=== PATIENT | male | born 1945 ===

== ENCOUNTER 2025-03-12 11:47 | Outpatient (AMB) | payer MEDICARE, SELFPAY ==
--- OUTSIDE RECORDS SUMMARY | 2025-03-12 13:06 | XMS_ITS | Clinical Summary ---
Author Organization [facility] Address [address] [place] [address] Phone Care Team Providers Care Building Maintenance Technician Name Role Phone Stas Pelaez MD Primary Care Provid er Donte Rush MD Unavailable [phone] Victor Hugo Hurley MD Unavailable [phone] Allergies Active Allergy Reactions Criticality Noted Date Comments Lisinopril Cough Medium 05/21/2014 Medications amLODIPine (NORVASC) 10 MG tablet Dose: 10 MG; Form: Take 1 TABLET; Route: PO; Frequency: as directed; Directions : Not available; Details: Dispense: Tablet(s); Date: 05/20/2015 05/20/2015 Active aspirin 81 mg chewable tablet Dose: 81 MG; Form: Take 1 TAB CHEW; Route: PO; Frequency: QD; Directions : Not available; Details: Dispense: Tablet(s); Date: 05/30/2012 05/30/2012 Active VALSARTAN (DIOVAN ORAL) Dose: 1 TAB; Form: Not available; Route: PO; Frequency: QD; Directions : Not available; Details: Not available; Date: 04/15/2007 04/15/2007 Active fenofibrate 40 mg Tab Dose: 40 MG; Form: Take 1 TABLET; Route: PO; Frequency: QD; Directions : Not available; Details: Dispense: Tablet(s); Date: 05/30/2012 05/30/2012 Active folic acid (FOLVITE) 1 MG tablet Dose: 1 MG; Form: Take 1 TABLET; Route: PO; Frequency: as directed; Directions : Not available; Details: Dispense: Tablet(s); Date: 05/20/2015 05/20/2015 Active gabapentin (NEURONTIN) 400 MG capsule Dose: 400 MG; Form: Take 1 CAPSULE; Route: PO; Frequency: as directed; Directions : Not available; Details: Dispense: Capsule(s) ; Date: 05/20/2015 05/20/2015 Active glipiZIDE (GLUCOTROL) 10 MG tablet Dose: 10 MG; Form: Take 4 TABLET; Route: PO; Frequency: as directed; Directions : Not available; Details: Dispense: Tablet(s); Date: 05/20/2015 05/20/2015 Active lovastatin (MEVACOR) 20 MG tablet Dose: 20 MG; Form: Take 1 TABLET; Route: PO; Frequency: QPM; Directions : Not available; Details: Dispense: Tablet(s); Date: 05/30/2012 05/30/2012 Active sterile water Syr 5 mL with methotrexate 2.5 MG Tab Dose: Not available; Form: Not available; Route: PO; Frequency: Not available; Directions : As directed; Details: Not available; Date: 05/20/2015 05/20/2015 Active PV W-O TIANNA/FERROUS FUMARATE/FA (M-VIT ORAL) Dose: 1 TAB; Form: Not available; Route: PO; Frequency: QD; Directions : Not available; Details: Not available; Date: 05/30/2012 05/30/2012 Active hydroxychloroquin e (PLAQUENIL) 200 mg tablet Take by mouth daily. Active ATORVASTATIN CALCIUM (ATORVASTATIN ORAL) Take by mouth. Active MULTIVITAMIN ORAL Take by mouth. Active METOPROLOL SUCCINATE ORAL Take by mouth. Active Active Problems Problem Noted Date Diagnosed Date Hyperlipidemia 06/01/2016 Arthritis 05/30/2012 Overview (09/14/2014): Arthritis Cancer 05/30/2012 Overview (09/14/2014): Cancer Hypertensive disorder 05/30/2012 Overview (09/14/2014): Hypertension Sleep apnea 05/30/2012 Overview (09/14/2014): Sleep apnea; CPAP Diabetes mellitus 05/30/2012 Overview (09/14/2014): Diabetes mellitus Social History Tobacco Use Types Packs/Day Years Used Date Smoking Tobacco: Former Alcohol Use Standard Drinks/Week Comments Yes 0 (1 standard drink = 0.6 oz pur e alcohol) rare Education Answer Date Recorded Are you interested in more education? Not on deon e 12/07/2022 Are you concerned about learning? Not on file 12/07/2022 No 12/07/2022 No 12/07/2022 Digital Access Answer Date Recorded No 12/20/2022 No 12/20/2022 No 12/20/2022 Reliable internet access at home? Not on file 12/20/2022 Device with a working camera? Not on file Sex and Gender Information Value Date Recorded Sex Assigned at Not on file Legal Sex Male 6:35 PM EST Gender Identity Male Sexual Orientation Straight Plan of Treatment Health Maintenance Due Date Last Done Comments Adult Td,Tdap Booster 1946 BLOOD PRESSURE 1946 CREATININE LEVEL 1946 HEMOGLOBIN A1C 1946 POTASSIUM LEVEL 1946 DEPRESSION SCREENING 1958 SMOKING Hx and SMOKELESS TOBACCO SCREENING 1959 HEPATITIS C SCREENING 01/31/1964 LIPID PANEL 01/31/1964 PNEUMOCOCCAL VACCINES (50+ years) (1 of 2 - PCV) 1965 DIABETIC EYE EXAM 09/05/2019 09/05/2018, , 09/05/2018, Additional history exists COVID-19 VACCINE (2 - Pfizer risk series) 11/02/2020 10/12/2020 RSV VACCINE (1 - 1-dose 75+ series) 2021 ZOSTER VACCINES Completed 01/24/2019, 10/24, 11/02/2018 HEPATITIS A VACCINES Aged Out No long er eligible based on patient's age to complete this topic HIB VACCINES Aged Out No longer eligi ble based on patient's age to complete this topic MENINGOCOCCAL VACCINES (ACWY) Aged Out No longer eligible based on patient's age to complete this topic MENINGOCOCCAL VACCINES (B) Aged Out N o longer eligible based on patient's age to complete this topic Medical Devices Not on file [place] [address] [address] MEDICARE PPO BLUE [place]PL[place] [address] [address] MEDICARE PPO BLUE [place]PL[place] [address] MEDICARE PPO BLUE REPLACEMENT Care Teams Building Maintenance Technician Relationship Specialty Start Date End Date Stas Pelaez MD [address] [phone] PCP - General 09/25/15 Donte Rush MD [address] [address] Ophthalmology 05/28/17 Victor Hugo Hurley MD [facility] [address] [address] Ophthalmology 08/28/19 Additional Source Comments The information contained in this document represents components of the legal health record. It is not the complete legal health record.[facility]
--- OUTSIDE RECORDS SUMMARY | 2025-03-12 13:06 | XMS_ITS | Encounter Summary ---
Author Organization [facility], Address [address] [address] Phone Care Team Providers Care Telecommunications Project Manager Name Role Phone Stas Pelaez MD Primary Care Provider Encounter Details Date Type Department Care Team (Late st Contact Info) Description 12/04/2021 Documentation Only [facility] [address] [place] [place] [phone] Armand Elliott MD [address] [place] [address] [place] [phone] Social History Tobacco Use Types Packs/Day Years Used Date Smoking Tobacco: Former Cigarettes Q uit: 05/07/1975 Alcohol Use Standard Drinks/Week Comments Yes 0 (1 standard drink = 0.6 oz pure alcohol) Alcoholic Drinks/day: Occasional social drink Sex and Gender Information Value Date Recorded Sex Assigned at Male 03/29/2020 8:06 AM EDT Legal Sex Male 4:34 PM EST Gender Identity Male 03/29/2020 8:06 AM EDT Sexual Orientation Straight 03/29/2020 8: 06 AM EDT documented as of this encounter Plan of Treatment Upcoming Encounters Date Type Department Care Team (Late st Contact Info) Description 12/03/2025 2:00 PM EDT Office Visit [facility] [address] [place] [phone] Armand Elliott MD [address] [place] [address] [place] [address] documented as of this encounter Visit Diagnoses Not on filedocumented in this encounter Care Teams Telecommunications Project Manager Relationship Specialty Start Date End Date Stas Pelaez MD [address] PCP - General 05/30/19 documented as of this encounter
--- OUTSIDE RECORDS SUMMARY | 2025-03-12 13:06 | XMS_ITS | Encounter Summary ---
Author Organization [facility] Address [address] [place] [address] Care Team Providers Care Automatic Lehr Operator Name Role Phone Stas Pelaez MD Primary Care Provider [phone] Encounter Details Date Type Department Care Team (Late st Contact Info) Description 06/02/2024 Lab Requisition [facility] - Main Lab [address] [facility] [place] [address] Suzanne Pelayo MD [address] [facility] 1 [place] [address] Type 2 diabetes mellitus without complications (CMS/HCC V24, CMS/HCC V28); Essential (primary) hypertension Social History Tobacco Use Types Packs/Day Years Used Date Smoking Tobacco: Former Cigarettes Q uit: 07/26/1975 Smokeless Tobacco: Never Alcohol Use Standard Drinks/Week Comments No 0 (1 standard drink = 0.6 oz pur e alcohol) Sex and Gender Information Value Date Recorded Sex Assigned at Not on file Legal Sex Male 1:33 PM EST Gender Identity Not on file Sexual Orientation Not on file documented as of this encounter Plan of Treatment Not on file documented as of this encounter Visit Diagnoses Diagnosis Type 2 diabetes mellitus without complications (CMS/HCC V24, CMS/HCC V28) Essential (primary) hypertension Unspecified essential hypertension documented in this encounter Care Teams Automatic Lehr Operator Relationship Specialty Start Date End Date Stas Pelaez MD [address] [facility] [address] [place], [place] PCP - General Internal Medicine 07/14/17 documented as of this encounter
== END 2025-03-12 11:51 | disposition home or self-care (01) ==
LOC: HO.HMGAL 11:47
PROVIDERS: PCP Internal Medicine; Visit Provider Registered Nurse Emergency
DX: J30.89 Other allergic rhinitis (principal)
CPT/HCPCS: 95117; 95165

== ENCOUNTER 2025-04-09 11:55 | Outpatient (AMB) | payer MEDICARE, SELFPAY ==
--- OUTSIDE RECORDS SUMMARY | 2025-04-09 16:34 | XMS_ITS | Encounter Summary ---
Author Organization [facility], Address [address] [address] Phone Care Team Providers Care Gasket Winder Name Role Phone Stas Pelaez MD Primary Care Provider Encounter Details Date Type Department Care Team (Late st Contact Info) Description 12/04/2021 Documentation Only [facility] [address] [place] [phone] Armand Elliott MD [address] [place] [address] [place] [phone] Social History Tobacco Use Types Packs/Day Years [...] Visit [facility] [address] [place] [phone] Armand Elliott MD [address] [place] [address] [place] [address] documented as of this encounter Visit Diagnoses Not on filedocumented in this encounter Care Teams Gasket Winder Relationship Specialty Start Date End Date Stas Pelaez MD [address] PCP - General 05/30/19 documented as of this encounter
--- OUTSIDE RECORDS SUMMARY | 2025-04-09 16:34 | XMS_ITS | Clinical Summary ---
Author Organization [facility] Address [address] [facility] [address] [place] [address] Phone Care Team Providers Care Programmer Developer Name Role Phone Stas Pelaez MD Primary Care Provid er Donte Rush MD Unavailable [phone] Victor Hugo Hurley MD Unavailable [phone] Allergies Active Allergy Reactions Criticality Noted Date [...] VACCINE (1 - 1-dose 75+ series) 2021 INFLUENZA VACCINE (#1) 2025 , 04/21/2019, 04/20/2018, Additional history exists ZOSTER VACCINES Completed 01/24/2019, 10/24, 11/02/2018 HEPATITIS [...] topic Medical Devices Not on file [place] [address] [place] [address] MEDICARE PPO BLUE [place]PLAC[place] [address] [address] MEDICARE PPO BLUE REPLACEMENT [facility] MEDICARE PPO BLUE [place] [address] [place] [address] MEDICARE PPO BLUE REPLACEMENT [place] MEDICARE PPO BLUE REPLACEMENT Care Teams Programmer Developer Relationship Specialty Start Date End Date Stas Pelaez MD [address] [facility] [address] [place] [address] PCP - General 09/25/15 Donte Rush MD [address] [facility] [address] [place] [address] Ophthalmology 05/28/17 Victor Hugo Hurley MD [address] [facility] [address] [place] [address] Ophthalmology 08/28/19 Additional Source Comments The information contained in this document represents components of the legal health record. It is not the complete legal health record.[facility]
--- OUTSIDE RECORDS SUMMARY | 2025-04-09 16:34 | XMS_ITS | Encounter Summary ---
Author Organization [facility] Address [address] [place] [address] Care Team Providers Care Exhibition Organiser Name Role Phone Stas Pelaez MD Primary Care Provider [phone] Encounter Details Date Type Department Care Team (Late st Contact Info) Description 06/02/[address] [facility] - Main Lab [address] [facility] [place] [address] Suzanne Pelayo MD [address] [facility] 1 [place] [address] Type 2 diabetes mellitus without complications (CMS/HCC [...] hypertension documented in this encounter Care Teams Exhibition Organiser Relationship Specialty Start Date End Date Stas Pelaez MD 36[address] [facility] [address] [place], [place] PCP - General Internal Medicine 07/14/17 documented as of this encounter
--- OUTSIDE RECORDS SUMMARY | 2025-04-09 16:34 | XMS_ITS | Encounter Summary ---
Author Organization [facility] Address [address] [place] [address] Care Team Providers Care Rheumatology Specialist Name Role Phone Stas Pelaez MD Primary Care Provider [phone] Encounter Details Date Type Department Care Team (Late st Contact Info) Description 05/27/2024 Lab Requisition [facility] - Main Lab [address] [facility] [place] [address] Suzanne Pelayo MD [address] [facility] 1 [place] [address] Type 2 diabetes mellitus without complications (CMS/HCC [...] hypertension documented in this encounter Care Teams Rheumatology Specialist Relationship Specialty Start Date End Date Stas Pelaez MD [address] [facility] [address] [place], [place] PCP - General Internal Medicine 07/14/17 documented as of this encounter
--- OUTSIDE RECORDS SUMMARY | 2025-04-09 16:34 | XMS_ITS | Clinical Summary ---
Author Organization [address] Address [address] [place] [phone] Phone Care Team Providers Care Instrument Maker And Repairer Name Role Phone Stas Pelaez MD Primary Care Provider Allergies Active Allergy Reactions Criticality Noted Date Comments Lisinopril 05/12/2017 Medications multivitamin with minerals tablet Take by mouth. Active aspirin 81 mg EC tablet Take 81 mg by mouth daily. Active folic acid (FOLVITE) 1 mg tablet Take 1 mg by mouth daily. Active gabapentin (NEURONTIN) 400 mg capsule Take 400 mg by mouth 3 times daily. Active hydroxychloroqui ne (PLAQUENIL) 200 mg tablet Take 200 mg by mouth 2 times daily. Active methotrexate 2.5 mg tablet Take 7 Tabs by mouth once a week. Active sertraline (ZOLOFT) 50 mg tablet Take 1 tablet (50 mg total) by mouth 1 (one) time each day. Active valsartan (DIOVAN) 320 mg tablet Take 1 tablet (320 mg total) by mouth 1 (one) time each day. Active predniSONE (DELTASONE) 2.5 mg tablet Take 1 tablet (2.5 mg total) by mouth 1 (one) time each day. Active carvediloL (COREG) 12.5 mg tablet TAKE 1 TABLET BY MOUTH TWICE A DAY WITH FOOD 180 tablet 2 10/18/2024 Active atorvastatin (LIPITOR) 80 mg tablet TAKE 1 TABLET BY MOUTH EVERY DAY 90 tablet 3 10/18/2024 Active Active Problems Problem Noted Date Diagnosed Date Nonischemic cardiomyopathy (CMS/HCC V24, CMS/HCC V28) 09/26/2024 Assessment & Plan (01/01/2025 4:06 PM EDT): Echocardiogram completed 01/19/2024 showed a new and mild global hypokinesis more pronounced in the inferior wall with an EF of 40 to 45%. Subsequent cardiac catheterization did not show any obstructive coronary artery disease, confirming that this is a nonischemic cardiomyopathy. Unfortunately, the patient was not seen for a significant time period after his cardiac catheterization and further evaluation of his cardiomyopathy was delayed. Cardiac MRI 10/2024 revealed findings consistent with a nonischemic cardiomyopathy with recovered EF, suspicious for an infiltrative cardiomyopathy such as cardiac amyloidosis but there were no other features that strongly suggested cardiac amyloidosis. Subsequent PYP scan completed 11/27/2024 showed no findings suggestive of TTR amyloidosis and serum AL lab were unrevealing. It appears as though his urinary issues led him to decline the urine studies previously ordered for him but after discussion today he is willing to have this done and was given a lab slip as a reminder; once these results are received, he will be notified. However no convincing evidence of cardia amyloidosis has been found which is reassuring. ACC/AHA stage C heart failure with NYHA class II symptoms. Fortunately, he appears well compensated on exam today and offers no symptoms concerning for overt heart failure within his current functional capacity. Jardiance was previously discontinued given his ongoing urinary issues; in line with guideline directed medications for heart failure, he will continue with carvedilol and valsartan. He will continue to follow closely with nephrology. We discussed risk reduction through lifestyle modifications including healthy diet, routine exercise, and weight management. We reviewed heart failure management including low-sodium diet, symptom surveillance, daily weights, and medication compliance. I've asked the patient to call if they develop worsening symptoms of heart failure such as increased shortness of breath, new or worsening cough, increased swelling in the legs or ankles, or weight gain of more than 2 pounds in one day or 4 pounds in one week. Assessment & Plan (09/26/2024 6:45 PM EST): Echocardiogram completed 01/19/2024 showed a new and mild global hypokinesis more pronounced in the inferior wall with an EF of 40 to 45%. Subsequent cardiac catheterization did not show any obstructive coronary artery disease, confirming that this is a nonischemic cardiomyopathy. Unfortunately, the patient was not seen after his cardiac catheterization and further evaluation of his cardiomyopathy has not been completed. Fortunately, the patient appears well compensated on exam today and offers no symptoms concerning for overt heart failure; ACC/AHA stage C heart failure with NYHA class II symptoms. We discussed further testing with a cardiac MRI for evaluation of possible infiltrative cardiomyopathy as causative; this will also allow for an updated LVEF. The patient and his are amenable; order has been entered. Jardiance was recently discontinued given his ongoing urinary issues; in line with guideline directed medications for heart failure, he will continue with carvedilol and valsartan. Will continue to readdress this once the results of his MRI have been reviewed.We discussed risk reduction through lifestyle modifications including healthy diet, routine exercise, and weight management. We reviewed heart failure management including low-sodium diet, symptom surveillance, daily weights, and medication compliance. I've asked the patient to call if they develop worsening symptoms of heart failure such as increased shortness of breath, new or worsening cough, increased swelling in the legs or ankles, or weight gain of more than 2 pounds in one day or 4 pounds in one week. Orders: MR Cardiac Morphology and Function wo and w Contrast; Future Peripheral edema 09/26/2024 Assessment & Plan (09/26/2024 6:45 PM EST): Minimal ankle edema noted on exam today; this does not appear to be career representative of overt heart failure given the remainder of his exam. Symptoms started after having back surgery in April; his mobility has been somewhat limited since this time. He does not follow a diet particularly low in sodium and was encouraged to modify his diet as such; additionally, he was encouraged to wear compression stockings daily and elevate his legs as able. He does have some mild varicosities on exam today which may be contributory as well. Should his edema worsen, he is aware to notify the office for further evaluation as this may be indicative of worsening heart failure. Orders: MR Cardiac Morphology and Function wo and w Contrast; Future Heart failure with mid-range ejection fraction (HFmEF) (CMS/HCC V24, CMS/HCC V28) 09/26/2024 Assessment & Plan (01/01/2025 4:06 PM EDT): As above. Assessment & Plan (09/26/2024 6:45 PM EST): As above. 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 Renal function unknown related stable on most recent metabolic panel 11/22/2023. Assessment & Plan (01/01/2025 4:06 PM EDT): Blood pressure is well-controlled on current medical therapy; continue carvedilol and valsartan without change. BMP 09/2024 showed stable renal function and electrolytes; he will continue to follow with nephrology as recommended. Assessment & Plan (09/26/2024 6:45 PM EST): Blood pressure is well-controlled on current medical therapy; continue carvedilol and valsartan without change. Will obtain metabolic panel for reevaluation of his electrolytes in addition to renal function given his history of CKD. Orders: MR Cardiac Morphology and Function wo and w Contrast; Future Basic metabolic panel; Future NSVT (nonsustained ventricul ar tachycardia) (CMS/[facility] V24, CMS/[facility] V28) 03/24/2024 TERRAZAS (dyspnea on exertion) 11/02/2023 Assessment & Plan (01/01/2025 4:06 PM EDT): Likely multifactorial in origin, with roots in underlying cardiomyopathy, previous smoking history, and deconditioning. Fortunately, he appears well compensated as above and is not overly bothered by his shortness of breath with exertion as his current functional capacity is somewhat limited. Should his symptoms worsen, he will notify the office or seek urgent medical attention as appropriate. We will continue to readdress this. Assessment & Plan (09/26/2024 6:45 PM EST): Likely multifactorial in origin, with roots in underlying cardiomyopathy, previous smoking history, and deconditioning. Fortunately, he appears well compensated as above and is not overly bothered by his shortness of breath with exertion as his current functional capacity is somewhat limited. Should his symptoms worsen, he will notify the office or seek urgent medical attention as appropriate. We will continue to readdress this. Orders: MR Cardiac Morphology and Function wo and w Contrast; Future Memory changes 11/02/2023 Overview (09/14/2024): Last Assessment & Plan: Given the patient's ongoing memory changes and recent diagnosis of Alzheimer's, it was requested that the patient come to future visits accompanied by a friend or family member that would be able to help him understand and carry through with his care and treatment planning. The patient verbalizes understanding of this and agrees that this would be helpful. 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 Assessment & Plan (01/01/2025 4:06 PM EDT): Status post stent to the LAD in 2017; nonobstructive disease noted on cardiac catheterization from 03/2024. He offers no symptoms to cause concern for worsening disease or underlying ischemia. We will not make any changes to cardioprotective medical therapy; continue carvedilol, atorvastatin, and daily ASA. The patient was advised to seek emergent medical attention by calling 911 if they were to develop severe dyspnea, chest pain that did not resolve with rest, or if they were to faint. Assessment & Plan (09/26/2024 6:45 PM EST): Status post stent to the LAD in 2017; nonobstructive disease noted on cardiac catheterization from 03/2024. He offers no symptoms to cause concern for worsening disease or underlying ischemia. We will not make any changes to cardioprotective medical therapy; continue carvedilol, atorvastatin, and daily ASA. The patient was advised to seek emergent medical attention by calling 911 if they were to develop severe dyspnea, chest pain that did not resolve with rest, or if they were to faint. Orders: Basic metabolic panel; Future Lipid panel; Future Diverticulitis 03/14/2018 Overview (09/14/2024): 1990 Sigmoid Resection Osteopenia 03/14/2018 Pulmonary nodule 03/14/2018 Overview (09/14/2024): 05/2017Stable, tiny, 3mm nodule Right fissure, yearly CT RA (rheumatoid arthritis) ([facility] V24, [facility] V28) 03/14/2018 Thyroid nodule 03/14/2018 Overview (09/14/2024): 05/2017 CT, Left Multiple actinic keratoses 08/31/2017 Atypical pigmented skin lesion 07/23/2017 Mixed hyperlipidemia 06/20/2017 Assessment & Plan (01/01/2025 4:06 PM EDT): LDL goal for this patient was a history of coronary artery disease as well as diabetes is less than 55; his most recent lipid panel from 09/29/2024 showed an LDL of 45 which is at goal. Continue atorvastatin 80 mg daily. Assessment & Plan (09/26/2024 6:45 PM EST): LDL goal for this patient was a history of coronary artery disease as well as diabetes is less than 55; no recent lipid panel on file. We will update this and continue to readdress as needed. Continue atorvastatin 80 mg daily. Orders: Lipid panel; Future Obstructive sleep apnea syndrome 05/14/2017 Overview (09/14/2024): CPAP Last Assessment & Plan: Encouraged continued strict compliance with CPAP. Assessment & Plan (01/01/2025 4:06 PM EDT): The patient admits today that he has not worn his CPAP in several weeks and has even send his equipment back because he thought he no longer needed it. We discussed the potential long-term negative implications of untreated sleep apnea as it relates to his cardiovascular health. He is willing to see sleep medicine to discuss the need for a repeat sleep study and continued CPAP use. Referral has been entered today. Orders: Ambulatory referral to Sleep Medicine; Future Assessment & Plan (09/26/2024 6:45 PM EST): Continued compliance with CPAP encouraged. Resolved Problems Problem Noted Date Diagnosed Date Resolved Date Knee joint replacement status 03/14/2018 09/14/2024 Overview (09/14/2024): 2006 Right Surgical History Surgery Date Site/Laterality Comments TOTAL KNEE ARTHROPLASTY 2006 Right PROCEDURE: PA ARTHRP KNE CONDYLE&PLATU MEDIAL&LAT COMPARTMENTS OTHER SURGICAL HISTORY 1989 PROCEDURE: PA COLECTOMY PRTL ABDOMINAL & TRANSANAL APPROACH; COMMENT: Sigmoid resection d/t Diverticulitis OTHER SURGICAL HISTORY 05/26/2017 PROCEDURE: STENT,CORONARY, S660 ; COMMENT: [facility], LAD stent OTHER SURGICAL HISTORY PROCEDURE: PA PROSTATECTOMY RETROPUBIC W/WO NERVE SPARING EYE SURGERY 2006 Right PROCEDURE: HISTORICAL EYE SURGERY COLONOSCOPY 2011 PROCEDURE: HISTORICAL COLONOSCOPY; COMMENT: Benign Polyp OTHER SURGICAL HISTORY 10/22/2014 Right PROCEDURE: PA EXC B9 LESION MRGN XCP SK TG T/A/L 0.6-1.0 CM; COMMENT: Biopsy site scar- Right Deltoid area KNEE ARTHROSCOPY W/ MENISCAL REPAIR 2010 Left PROCEDURE: PA ARTHROSCOPY KNEE W/MENISCUS RPR MEDIAL/LATERAL Medical History Medical History Date Comments Hyperlipidemia 06/20/2017 DX:Hyperlipidemi a Hypertension DX:Hypertension Colon polyp DX:Colon polyp Brewer esophagus DX:Brewer eso phagus 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/17/2017 DX:Personal history of malig nant neoplasm of eye; COMMENT: 2006, radiation History of prostate cancer DX:Hi story of prostate cancer Diverticulitis 03/14/2018 DX:Diverticuliti s; COMMENT: 1989 Sigmoid Resection Knee joint replacement status 03/14/2018 DX :Knee joint replacement status; COMMENT: 2006 Right Cholelithiasis 03/14/2018 DX:Cholelithiasi s; COMMENT: 05/2017 CT Osteopenia 03/14/2018 DX:Osteopenia Pulmonary nodule 03/14/2018 DX:Pulmonary no dule; COMMENT: 05/2017Stable, tiny, 3mm nodule Right fissure, yearly CT Thyroid nodule 03/14/2018 DX:Thyroid nodul e; COMMENT: 05/2017 CT, Left CAD (coronary artery disease) 03/14/2018 DX :CAD (coronary artery disease); COMMENT: 2016 LAD Stent RA (rheumatoid arthritis) ([facility] [place]/HCC V24, CMS/HCC V28) 03/14/2018 DX:RA (rheumatoid arthritis) (HCC) Obstructive sleep apnea syndrome 05/14/2017 DX:Obstructive sleep apnea syndrome; COMMENT: CPAP Multiple environmental allergies 03/14/2018 DX:Multiple environmental allergies Diabetes mellitus type 2, uncomplicated (CMS/HCC V24, CMS/HCC V28) DX:Diabetes mellitus type 2, uncomplicated (HCC) Atypical pigmented skin lesion 07/23/2017 D X:Atypical pigmented skin lesion Encounter for long-term (cur rent) use of antiplatelets/antithrombotics 08/17/2017 DX:Encounter for long -term (current) use of antiplatelets/antithrombotics Encounter for long-term (cur rent) use of aspirin 08/17/2017 DX:Encounter for long-term ( current) use of aspirin History of DVT (deep vein thrombosis) 07/26/2007 DX:History of DVT (deep vein thrombosis); COMMENT: 2007 Multiple actinic keratoses 08/31/2017 DX:Mu ltiple actinic keratoses Mild cognitive impairment DX:Mil d cognitive impairment Family History Medical History Relation Name Comments Diabetes Brother Diabetes Mother Relation Name Status Comments Brother Mother Social History Tobacco Use Types Packs/Day Years [...] on file Sexual Orientation Not on file Obstetrics History Last Filed Vital Signs Vital Sign Reading Time Taken Comments Blood Pressure 118/60 12/28/2024 11:26 AM EDT Pulse 52 12/28/2024 11:26 AM EDT Temperature - - Respiratory Rate - - Oxygen Saturation 97% 12/28/2024 11:26 AM EDT Inhaled Oxygen Concentration - - Weight 68.9 kg (152 lb) 12/28/2024 11:26 AM EDT Height 175.3 cm (5' 9 ) 12/28/2024 11:26 AM EDT Body Mass Index 22.45 12/28/2024 11:26 AM EDT Plan of Treatment Health Maintenance Due Date Last Done Comments Diabetes: Annual Foot Exam 01/31/1956 Diabetes: Annual Retina Eye Exam 01/31/1956 Hepatitis A Vaccines (1 of 2 - Risk 2-dose series) 1965 Hepatitis B Vaccines (1 of 3 - Risk 3-dose series) 2006 Falls Risk Assessment 07/04/2022 Hepatitis C Screening 07/04/2022 Medicare Annual Wellness Visit 07/04/2022 Social Influencers of Health Screening 07/04/2022 Diabetes: Annual Urine Albumin-Creatinine Ratio (uACR) 07/08/2022 Diabetes: Blood Sugar Control Test (HGBA1C) 07/08/2022 Depression Screening 07/26/2024 COVID-19 Vaccine (8 - Pfizer risk season) 2025 05/01/2024, 05/16/2023, 04/08/2022, Additional history exists Influenza Vaccine (#1) 2025 , 04/27/2023, 04/08/2022, Additional history exists Diabetes: Annual GFR (Glomerular Filtration Rate) 09/29/2025 09/29/2024 Hypertension/CHF/CAD Annual BMP Blood Test 09/29/2025 09/29/2024 DTaP,Tdap,and Td Vaccines (3 - Td or Tdap) 02/01/2028 01/31/2018, 07/28/2012 Cholesterol Screening (Lipid Panel) 09/29/2029 09/29/2024 Pneumococcal Vaccine: 50+ Years Completed 03/27/2015, 01/02/2015, 07/28/2012 Zoster Vaccines Completed 01/24/2019, 10/24, 11/02/2018, Additional history exists RSV Immunization Adult Patients Completed 04/27/2023 HIB Vaccines Aged Out No longer eligi ble based on patient's age to complete this topic HPV Vaccines Aged Out No longer eligi ble based on patient's age to complete this topic IPV Vaccines Aged Out No longer eligi ble based on patient's age to complete this topic MMR Vaccines Aged Out No longer eligi ble based on patient's age to complete this topic Meningococcal ACWY Vaccine Aged Out N o longer eligible based on patient's age to complete this topic Meningococcal B Vaccine Aged Out No l onger eligible based on patient's age to complete this topic RSV Immunization Patients Under 20 months Aged Out No longer eligible based on patient's age to complete this topic Varicella Vaccines Aged Out No longer eligible based on patient's age to complete this topic Procedures Procedure Name Priority Date/Time Associated Diagnosis Comments BASIC METABOLIC PANEL Routine 09/29/2024 7:40 AM EST 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 ([facility]/HCC V24) Essential hypertension LIPID PANEL Routine 09/29/2024 7:40 AM EST 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 (CMS/HCC V24) Mixed hyperlipidemia from Last 3 Months or Most Recently Relevant to Health Maintenance Results * Lipid panel (09/29/2024 7:40 AM EST) Cholesterol Total 107 100 - 199 mg/dL [facility] Triglycerides 94 0 - 149 mg/dL [facility] HDL Cholesterol 44 >39 mg/dL [facility] VLDL Cholesterol Calculated 18 5 - 40 mg/dL [facility] LDL Chol Calc (NIH) 45 0 - 99 mg/dL [facility] 1 Blood Venous blood specimen / Unknown 09/29/2024 7:40 AM EST 09/29/2024 Narrative [facility] - 09/30/2024 7:06 AM EST Performed at: - [facility] [address] [id number] Marine Farmer: Mariah Weeks MD, Phone: [phone] Meg Cason FLARE WORK[employer] LAB BLOOD ORDERABLES Final Result [facility] * (ABNORMAL) Basic metabolic panel (09/29/2024 7:40 AM EST) Glucose 101(H) 70 - 99 mg/dL [facility] Blood Urea Nitrogen (BUN) 23 8 - 27 mg/dL [facility] Creatinine 1.12 0.76 - 1.27 mg/dL [facility] 1 eGFR 67 >59 mL/min/1.7 3 [facility] BUN/Creatinine Ratio 21 10 - 24 [facility] 1 Sodium 146(H) 134 - 144 mmol/L [facility] Potassium 4.4 3.5 - 5.2 mmol/L [facility] 1 Chloride 106 96 - 106 mmol/L [facility] Carbon Dioxide 28 20 - 29 mmol/L [facility] 1 Calcium 9.9 8.6 - 10.2 mg/dL [facility] 1 Blood Venous blood specimen / Unknown 09/29/2024 7:40 AM EST 09/29/2024 Narrative [facility] - 09/30/2024 7:06 AM EST Performed at: - [facility] [address] [id number] Marine Farmer: Mariah Weeks MD, Phone: [phone] Meg Tim Kamla [employer]ARE WORK[employer] LAB BLOOD ORDERABLES Final Result [facility] 1 from Last 3 Months or Most Recently Relevant to Health Maintenance Insurance [employer] [place] MEDICARE ADVANTAGE Care Teams Instrument Maker And Repairer Relationship Specialty Start Date End Date Stas Pelaez MD [id number] PCP - General Internal Medicine 07/14/17
--- OUTSIDE RECORDS SUMMARY | 2025-04-09 16:34 | XMS_ITS | Clinical Summary ---
Author Organization [facility], Address [address] [place] [address] [place] [address] Phone Care Team Providers Care Prune Washer Name Role Phone Stas Pelaez MD Primary Care Provider Allergies Active Allergy Reactions Criticality Noted Date Comments Titus Inhibitors Other (see comments) 09/27/2019 Lisinopril Other (see comments) High 05/21/2014 Medications atorvastatin (LIPITOR) 80 MG tablet Take 80 mg by mouth every night 07/13/2019 Active carvedilol (COREG) 12.5 MG tablet Take 12.5 mg by mouth 2 (two) times a day with meals 09/07/2019 Active folic acid (FOLVITE) 1 MG tablet Take 1,000 mcg by mouth daily 07/08/2019 Active gabapentin (NEURONTIN) 400 MG capsule Take 400 mg by mouth 08/03/2019 Active ONETOUCH VERIO test strip USE 1 STRIP(S) TWICE A DAY BY MISCELL. ROUTE FOR 90 DAYS. 08/20/2019 Active methotrexate 2.5 MG tablet TAKE 6 TABLETS BY MOUTH WEEKLY 06/20/2019 Active hydroxychloroqu ine (PLAQUENIL) 200 MG tablet Take 1 tablet by mouth 2 (two) times a day 03/09/2016 Active eszopiclone (LUNESTA) 1 MG tablet Take 1 mg by mouth at bed time EVERY DAY AT BEDTIME FOR 30 DAYS 11/12/2021 Active metroNIDAZOLE (METROCREAM) 0.75 % cream APPLY TWICE A DAY TO FACE FOR ROSACEA NEEDED. 10/27/2021 Active predniSONE (DELTASONE) 2.5 MG tablet Take 2.5 mg by mouth 1 (one) time each day 11/02/2021 Active sertraline (ZOLOFT) 25 MG tablet Take 25 mg by mouth 1 (one) time each day 10/20/2021 Active Doxepin HCl 3 MG tablet Take 1 tablet by mouth 1 (one) time each day For 30 days 11/05/2022 Active valsartan (DIOVAN) 320 MG tablet Take 320 mg by mouth 1 (one) time each day Active Active Problems Problem Noted Date Diagnosed Date Renal disorder due to type 1 diabetes mellitus 0 12/05/2020 Chronic kidney disease due to hypertension 09/26 Chronic kidney disease stage 3 09/27/2019 Neuropathy due to diabetes mellitus 11/01/2017 Hyperlipidemia 06/01/2016 Diabetes mellitus 05/30/2012 Overview (09/27/2019): Diabetes mellitus Hypertensive disorder 05/30/2012 Overview (09/27/2019): Hypertension Cancer 05/30/2012 Overview (12/05/2020): Cancer Immunizations Immunization Administration Dates Next Due Influenza Split High Dose Preservative Free IM 0 04/21/2019 Pneumococcal Conjugate 13-Valent 03/29/2015 Zoster 01/24/2019,11/02/2018 Family History Medical History Relation Comments Diabetes Mother Diabetes Sibling brother/Brother Relation Status Comments Mother Sibling Social History Tobacco Use Types Packs/Day Years [...] Orientation Straight 03/29/2020 8: 06 AM EDT Last Filed Vital Signs Vital Sign Reading Time Taken Comments Blood Pressure 136/60 12/04/2024 12:44 PM EDT Pulse - - Temperature - - Respiratory Rate 22 10/18/2017 12:00 PM EDT Oxygen Saturation - - Inhaled Oxygen Concentration - - Weight 71.7 kg (158 lb) 12/04/2024 12:44 PM EDT Height 175.3 cm (5' 9 ) 06/20/2018 12:00 PM EST Body Mass Index 23.33 06/20/2018 12:00 PM EST Plan of Treatment Upcoming Encounters Date Type Department Care Team (Late st Contact Info) Description 12/03/2025 2:00 PM EDT Office Visit [facility], [address] [place] [address] Armand Elliott MD [address] [place] [address] Health Maintenance Due Date Last Done Comments Hepatitis B Vaccine (1 of 3 - Risk 3-dose series) 2006 Diabetes: Hemoglobin A1C 09/27/2019 09/06/2017 Diabetes: Ophthalmology Exam 09/27/2019 Diabetes: Pedal Pulse Checked 09/27/2019 Diabetes: Sensory Foot Exam 09/27/2019 Diabetes: Visual Foot Exam 09/27/2019 Influenza Vaccine (#1) 2025 4, 04/27/2023, 04/08/2022, Additional history exists Pneumococcal Vaccine: 50+ Years Completed 03/29/2015, 01/02/2015, 07/28/2012 Pneumococcal Vaccine: Peds ( 0 to 5 Years) and At-Risk Patients (6 to 49 Years) Discontinued 03/29/2015, 01/02/2015, 07/28/2012 Colorectal Cancer Screening: Colonoscopy Discontinued 07/24/2021 Procedures Procedure Name Priority Date/Time Associated Diagnosis Comments LAB COMMUNITY PROGRAM ASSISTANT Routine 09/06/2017 12:00 AM EST from Last 3 Months or Most Recently Relevant to Health Maintenance Results * (ABNORMAL) Lab [place] [facility] (09/06/2017 12:00 AM EST) ALT (SGPT) 48 U/L [facility] Triglycerides 123 mg/dl [facility] HDL 35 mg/dl [facility] LDL-Calc 34 mg/dl [facility] Hemoglobin A1C 6.3 % [facility] Sodium 143 133 - 145 mmol/L [facility] Hgb 15.1 12.0 - 16.0 g/dL [facility] Hematocrit 44.3 % [facility] Platelets 179 150 - 450 K/uL [facility] WBC 6.3 4.5 - 11.0 K/uL [facility] Cholesterol, Total 94 mg/dl [facility] Carbon Dioxide (CO2) 25 22 - 29 mmol/L [facility] Potassium 4.4 3.6 - 5.2 mmol/L [facility] BUN 29(H) 8 - 23 mg/dL [facility] Creatinine 1.3(H) 0.4 - 1.1 mg/dL [facility] GFR Calculated 55 ml/min [facility] Calcium 10.0 8.4 - 10.2 mg/dL [facility] Glucose 112 mg/dl [facility] 09/06/2017 [facility] Conversion LAB [id number] LICITED RESULTS Final Result [facility] from Last 3 Months or Most Recently Relevant to Health Maintenance Insurance [facility] Care Teams Prune Washer Relationship Specialty Start Date End Date Stas Pelaez MD [id number] PCP - General 05/30/19
== END 2025-04-09 11:55 | disposition home or self-care (01) ==
LOC: HO.HMGAL 11:55
PROVIDERS: PCP Internal Medicine; Visit Provider Registered Nurse Emergency
DX: J30.89 Other allergic rhinitis (principal)
CPT/HCPCS: 95117; 95165

== ENCOUNTER 2025-05-14 11:48 | Outpatient (AMB) | payer MEDICARE, SELFPAY | END 2025-05-14 11:49 | disposition home or self-care (01) | LOC: HO.HMGAL 11:48 | PROVIDERS: PCP Internal Medicine; Visit Provider Registered Nurse Emergency | DX: J30.89 Other allergic rhinitis (principal) | CPT/HCPCS: 95117; 95165 ==

== ENCOUNTER 2025-06-11 11:54 | Outpatient (AMB) | payer MEDICARE, SELFPAY ==
--- OUTSIDE RECORDS SUMMARY | 2025-06-12 00:23 | XMS_ITS | Data Portability ---
Author Organization [facility], Main Office Address [address] [facility] [address] [place] [address] Care Team Providers Care Governor Assembler Hydraulic Name Role Phone ASIM PELAEZ Primary Care Provider FALLON CHAO Latin American Studies Professor [phone] MAGY BASS Lcac Radar Operator/Navigator ROBERT VALDEZ Sales Strategy Manager [phone] LORAINE COREAS Neurosurgeon NOAH TERRELL Corporate Relations Director MARGY SORTO Stove Carriage Operator WHITNEY WILKERSON Senior Software Qa Engineer DONAL LOPEZ Referring Provider [phone] DANIE ARREOLA Stove Carriage Operator MAGY BRADFORD Referring Provider [phone] Assessment Encounter Date Assessment Date Assessment LastModified by Organization Details LastModified Time 06/01/2024 06/01/2024 Discussed with patient the signs/symptom s warranted for a return to office visit and/or an ER visit. Patient understood and agreed with the plan. [email or web address] Not available 06/01/2024 11:28:09 Plan of Treatment Reminders Order Date Submit Date Provider Last Modified By Organization Details Last Modified Time Details Appointments [email or web address] 2025 11:00A M Asim stover MD Not available Not available Not available Lab hemog lobin A1C, finge rstic k 2024 025 [email or web address] In-Office Order, Internal Use Only DO Not Attach Compendium DO Not Attach Compendium, Do Not Delete/merge, [id number] 04/10/2025 13:21:20 CMP, serum or plasm a 2024 025 ANTONINA [facility] (Centralized Electronic Ordering - All Locations), Patient Can Go To The Location Of Their Choice, [id number] 04/11/2025 06:08:08 hemog lobin A1C, finge rstic k 2024 025 jason In-Office Order, Internal Use Only DO Not Attach Compendium DO Not Attach Compendium, Do Not Delete/merge, [id number] 12/20/2024 11:55:12 HbA1c (hemo globi n A1c), blood 2024 025 ANTONINA [facility] (Centralized Electronic Ordering - All Locations), Patient Can Go To The Location Of Their Choice, [id number] 09/01/2024 10:06:20 micro album in/cr eatin ine, mass ratio , urine 2024 025 ANTONINA [facility] (Centralized Electronic Ordering - All Locations), Patient Can Go To The Location Of Their Choice, [id number] 09/01/2024 10:06:19 CMP, serum or plasm a 2023 024 ANTONINA [facility] (Centralized Electronic Ordering - All Locations), Patient Can Go To The Location Of Their Choice, [id number] 06/02/2024 06:08:27 Referral physi holli tripathi refer ral - Chron ic low back pain 2024 025 Replaced by [facility], [address], [place], [address], 12/28/2024 09:17:31 [facility] refer ral - Last seen by bhakti bell January 2024 and fell off from f/u. 2024 025 jason Wilkerson MD, [address], [address], [place], [address], 10/07/2024 15:13:45 Procedures None recor ded. Surgeries None recor ded. Imaging US, breas t, unila teral , compl ete - Itchy left nippl e and small mass w/o pain. R/o breas t tissu e. 2024 025 eryn [facility], [address], [address], [place], [address], 04/24/2025 10:08:26 MRI, liver , w/o contr ast - liver leseliel fermin led on abdom inal CT in ED 2023 024 [email or web address] [facility] [address], [place], [address], 07/27/2024 09:15:00 PET-C T, whole body scan - multi ple pulmo nary nodul es in right lung. scott rn for metas tatmonie disea se of unkon wn origi n 2023 024 eryn [facility], [address], [place], [address], 06/15/2024 11:04:42 Medication Orders meman lew 10 mg table t 2024 025 [facility]armacy #[id number], [address] [place], [address], 04/10/2025 12:07:36 sertr lj 100 mg table t 2024 025 [facility]/Pharmacy #[id number], [address] [place], [address], 12/20/2024 11:56:53 Patient TargetsNo targets recorded. Patient Instructions Encounter Date Encounter Id Patient Instructions Last Modified By Organization Details Last Modified Time 06/01/2024 [id number] At [facility] follow up visit, all current and discharge medications (OTC, herbal therapies, supplements) reviewed and reconciled with patient and or caregiver, including potential side effects, drug interactions, instructions, and the consequences of not taking medication. Reviewed potential barriers to medication adherence, such as side effects from medication or cost of medication. [email or web address] Not available 06/01/2024 10:49:48 08/25/2024 [id number] high cholesterol: care instructions [email or web address] Not available 08/27/2024 14:09:36 preventing falls: care instructions [email or web address] Not available 08/25/2024 11:48:54 well visit, over 65: care instructions [email or web address] Not available 08/25/2024 11:48:54 Rheumatoid Arthritis (RA): Care Instructions [email or web address] Not available 08/27/2024 14:09:36 12/20/2024 [id number] Preventing Depression From Coming Back: Care Instructions [email or web address] Not available 12/20/2024 11:56:51 back care and preventing injuries: care instructions [email or web address] Not available 12/20/2024 11:55:11 getting back to normal after low back pain: care instructions [email or web address] Not available 12/20/2024 11:55:11 learning about relief for back pain [email or web address] Not available 12/20/2024 11:55:11 Medications (OTC, herbal therapies, supplements) reviewed and reconciled with patient and or caregiver, including potential side effects, drug interactions, instructions, and the consequences of not taking medication. Reviewed potential barriers to medication adherence, such as side effects from medication or cost of medication. Not available 12/20/2024 11:02:26 04/10/2025 [id number] Medications (OTC, herbal therapies, supplements) reviewed and reconciled with patient and or caregiver, including potential side effects, drug interactions, instructions, and the consequences of not taking medication. Reviewed potential barriers to medication adherence, such as side effects from medication or cost of medication. 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 Referring Physician: Asim Pelaez Family Medicine, Encounter Date: 08/25/2024 Physical Therapist Referral for Low back pain Chronic low back pain Referring Physician: Asim Pelaez Family Medicine, Encounter Date: 12/20/2024 Results Created Date Observation Date Name Description Value Unit Range Abnormal Flag Note LastModifiedBy Organization Detail LastModifiedTime 06/01/20 24 06/02/2024 COMP. METAB OLIC PANEL (14) glucose 127 mg/dL 70-99 above high normal Not Available [facility] ([facility]) [address] [facility], [place], [address], 06/02/2024 06:08:27 06/01/20 24 06/02/2024 COMP. METAB OLIC PANEL (14) BUN 23 mg/dL 8-27 normal Not Available [facility] ([facility]) [address] [facility] [place], [address], 06/02/2024 06:08:27 06/01/20 24 06/02/2024 COMP. METAB OLIC PANEL (14) creatinine 1.11 mg/dL 0.76-1 .27 normal Not Available [facility] ([facility]) [address] [facility] [place] [place], [address], 06/02/2024 06:08:27 06/01/20 24 06/02/2024 COMP. METAB OLIC PANEL (14) eGFR 68 mL/mi n/1.7 3 >59 normal Not Available [facility] ([facility]) [address] [facility], [place], [address], 06/02/2024 06:08:27 06/01/20 24 06/02/2024 COMP. METAB OLIC PANEL (14) BUN/creatini ne ratio 21 10-24 normal Not Available [facility] ([facility]) [address] [facility], [place], [address], 06/02/2024 06:08:27 06/01/20 24 06/02/2024 COMP. METAB OLIC PANEL (14) sodium 141 mmol/ L 134-14 4 normal Not Available [facility] ([facility]) [address] [facility] [place], [address], 06/02/2024 06:08:27 06/01/20 24 06/02/2024 COMP. METAB OLIC PANEL (14) potassium 4.3 mmol/ L 3.5-5. 2 normal Not Available [facility] ([facility]) [address] [facility] [place], [address], 06/02/2024 06:08:27 06/01/20 24 06/02/2024 COMP. METAB OLIC PANEL (14) chloride 104 mmol/ L 96-106 normal Not Available [facility] ([facility]) [address] [facility] [place], [address], 06/02/2024 06:08:27 06/01/20 24 06/02/2024 COMP. METAB OLIC PANEL (14) carbon dioxide, total 21 mmol/ L 20-29 normal Not Available [facility] ([facility]) [address] [facility] [place], [address], 06/02/2024 06:08:27 06/01/20 24 06/02/2024 COMP. METAB OLIC PANEL (14) calcium 9.5 mg/dL 8.6-10 .2 normal Not Available [facility] ([facility]) [address] [facility] [place], [address], 06/02/2024 06:08:27 06/01/20 24 06/02/2024 COMP. METAB OLIC PANEL (14) protein, total 6.1 g/dL 6.0-8. 5 normal Not Available [facility] ([facility]) [address] [facility] [place] [place], [address], 06/02/2024 06:08:27 06/01/20 24 06/02/2024 COMP. METAB OLIC PANEL (14) albumin 4.0 g/dL 3.8-4. 8 normal Not Available [facility] ([facility]) [address] [facility] [place] [place], [address], 06/02/2024 06:08:27 06/01/20 24 06/02/2024 COMP. METAB OLIC PANEL (14) globulin, total 2.1 g/dL 1.5-4. 5 Not Available [facility] ([facility]) [address] [facility] [place] [place], [address], 06/02/2024 06:08:27 06/01/20 24 06/02/2024 COMP. METAB OLIC PANEL (14) bilirubin, total 0.5 mg/dL 0.0-1. 2 normal Not Available [facility] ([facility]) [address] [facility] [place] [place], [address], 06/02/2024 06:08:27 06/01/20 24 06/02/2024 COMP. METAB OLIC PANEL (14) alkaline phosphatase 101 IU/L 44-121 normal Not Available [facility] ([facility]) [address] [facility] [place] [place], [address], 06/02/2024 06:08:27 06/01/20 24 06/02/2024 COMP. METAB OLIC PANEL (14) AST (SGOT) 25 IU/L 0-40 normal Not Available [facility] ([facility]) [address] [facility] [place] [place], [address], 06/02/2024 06:08:27 06/01/20 24 06/02/2024 COMP. METAB OLIC PANEL (14) ALT (SGPT) 33 IU/L 0-44 normal Not Available [facility] ([facility]) [address] [facility] [place] [place], [address], 06/02/2024 06:08:27 08/30/19 25 08/30/2024 LIPID PANEL cholesterol, total 99 mg/dL 100-19 9 below low normal Not Available [facility] ([facility]) [address] [facility] [place] [place], [address], 08/31/2024 06:08:27 08/30/19 25 08/30/2024 LIPID PANEL triglyceride s 61 mg/dL 0-149 normal Not Available [facility] ([facility]) [address] [place], [address], 08/31/2024 06:08:27 08/30/19 25 08/30/2024 LIPID PANEL HDL cholesterol 47 mg/dL >39 normal Not Available [facility]) [address] [place], [address], 08/31/2024 06:08:27 08/30/19 25 08/30/2024 LIPID PANEL VLDL cholesterol holli 14 mg/dL 5-40 Not Available [facility] ([facility]) [address] [place], [address], 08/31/2024 06:08:27 08/30/19 25 08/30/2024 LIPID PANEL LDL chol calc ([facility]) 38 mg/dL 0-99 Not Available [facility]) [address] [place], [address], 08/31/2024 06:08:27 08/30/19 25 08/30/2024 LIPID PANEL LDL calc comment: 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 normal Not Available [facility] ([facility]) [address] [place], [address], 09/01/2024 10:06:19 08/30/19 25 09/01/2024 ALBUM IN/CR EAT RATIO , RANDO M UR albumin, urine 362.2 ug/mL not estab. Not Available [facility] ([facility]) [address] [place], [address], 09/01/2024 10:06:19 08/30/19 25 09/01/2024 ALBUM IN/CR EAT RATIO , RANDO M UR alb/creat ratio 285 mg/g_ creat 0-29 above high normal Elissa l: 0 - 29 Moder ately incre ased: 30 - 300 Sever david incre ased: >300 Not Available [facility] ([facility]) [address] [place], [address], 09/01/2024 10:06:19 08/30/19 25 08/30/2024 HEMOG LOBIN A1C hemoglobin A1C 6.7 % 4.8-5. 6 above high normal Predi abete s: 5.7 - 6.4 Diabe alfonzo: >6.4 Glyce favian contr ol for adult s with diabe alfonzo: <7.0 Not Available [facility] ([facility]) [address] [place], [address], 09/01/2024 10:06:20 12/16/19 25 12/15/2024 CBC w/ auto diff WBC 6.0 Not Available [facility] [address], [address], 12/19/2024 14:11:42 12/16/19 25 12/15/2024 CBC w/ auto diff RBC 4.06 Not Available [facility] [address], [address], 12/19/2024 14:11:42 12/16/19 25 12/15/2024 CBC w/ auto diff HGB 13.0 Not Available [facility] [address], [address], 12/19/2024 14:11:42 12/16/19 25 12/15/2024 CBC w/ auto diff HCT 39.1 Not Available [facility] [address], [address], 12/19/2024 14:11:42 12/16/19 25 12/15/2024 CBC w/ auto diff plt 156 Not Available [facility] [address], [address], 12/19/2024 14:11:42 05/28/12/20/2024 hemog lobin A1Cbekah k A1C 6.8 % 4-6 abnormal Not Available In-Office Order Internal Use Only DO Not Attach Compendium DO Not Attach Compendium, Do Not Delete/merge, [id number] 12/20/2024 11:02:34 04/10/2004/10/2025 CMP14 +EGFR glucose 135 mg/dL 70-99 above high normal Not Available [facility] ([facility]) [address] [place], [address], 04/11/2025 06:08:08 04/10/20 25 04/10/2025 CMP14 +EGFR BUN 27 mg/dL 8-27 normal Not Available [facility] ([facility]) [address] [place], [address], 04/11/2025 06:08:08 04/10/2004/10/2025 CMP14 +EGFR creatinine 1.17 mg/dL 0.76-1 .27 normal Not Available [facility] ([facility]) [address] [place], [address], 04/11/2025 06:08:08 04/10/20 25 04/10/2025 CMP14 +EGFR eGFR 63 mL/mi n/1.7 3 >59 normal Not Available [facility] ([facility]) [address] [place], [address], 04/11/2025 06:08:08 04/10/2004/10/2025 CMP14 +EGFR BUN/creatini ne ratio 23 10-24 normal Not Available [facility] ([facility]) [address] [place], [address], 04/11/2025 06:08:08 04/10/20 25 04/10/2025 CMP14 +EGFR sodium 144 mmol/ L 134-14 4 normal Not Available [facility] ([facility]) [address] [place], [address], 04/11/2025 06:08:08 04/10/2004/10/2025 CMP14 +EGFR potassium 4.1 mmol/ L 3.5-5. 2 normal Not Available [facility] ([facility]) [address] [facility] [place] [place], [address], 04/11/2025 06:08:08 04/10/2004/10/2025 CMP14 +EGFR chloride 106 mmol/ L 96-106 normal Not Available [facility] ([facility]) [address] [facility], [place], [address], 04/11/2025 06:08:08 04/10/2004/10/2025 CMP14 +EGFR carbon dioxide, total 22 mmol/ L 20-29 normal Not Available [facility] ([facility]) [address] [place], [address], 04/11/2025 06:08:08 04/10/20 25 04/10/2025 CMP14 +EGFR calcium 9.8 mg/dL 8.6-10 .2 normal Not Available [facility] ([facility]) [address] [place], [address], 04/11/2025 06:08:08 04/10/2004/10/2025 CMP14 +EGFR protein, total 6.0 g/dL 6.0-8. 5 normal Not Available [facility] ([facility]) [address] [place], [address], 04/11/2025 06:08:08 04/10/2004/10/2025 CMP14 +EGFR albumin 4.4 g/dL 3.8-4. 8 normal Not Available [facility] ([facility]) [address] [place], [address], 04/11/2025 06:08:08 04/10/20 25 04/10/2025 CMP14 +EGFR globulin, total 1.6 g/dL 1.5-4. 5 Not Available [facility] ([facility]) [address] [facility], [place], [address], 04/11/2025 06:08:08 04/10/2004/10/2025 CMP14 +EGFR bilirubin, total 0.7 mg/dL 0.0-1. 2 normal Not Available [facility] ([facility]) [address] [facility] [place] [place], [address], 04/11/2025 06:08:08 04/10/20 25 04/10/2025 CMP14 +EGFR alkaline phosphatase 62 IU/L 47-123 normal Ple ase note refer ence morgan puckett Not Available [facility] ([facility]) [address] [facility], [place], [address], 04/11/2025 06:08:08 04/10/20 25 04/10/2025 CMP14 +EGFR AST (SGOT) 36 IU/L 0-40 normal Not Available [facility] ([facility]) [address] [facility], [place], [address], 04/11/2025 06:08:08 04/10/2004/10/2025 CMP14 +EGFR ALT (SGPT) 30 IU/L 0-44 normal Not Available [facility] ([facility]) [address] [facility], [place], [address], 04/11/2025 06:08:08 04/10/2004/10/2025 hemog lobin A1C, finge rstic k A1C 6.2 % 4-6 abnormal Not Available In-Office Order Internal Use Only DO Not Attach Compendium DO Not Attach Compendium, Do Not Delete/merge, [id number] 04/10/2025 11:28:24 05/16/2005/17/2025 TSH+F REE T4 TSH 4.340 uIU/m L 0.450- 4.500 normal Not Available [facility] ([facility]) [address] [facility], [place], [address], 05/17/2025 08:07:42 05/16/2005/17/2025 TSH+F REE T4 T4,free(dire ct) 1.39 NG/dL 0.82-1 .77 normal Not Available [facility] ([facility]) [address] [place], [address], 05/17/2025 08:07:42 05/16/2005/17/2025 FSH AND LH LH 9.3 mIU/m L 1.7-8. 6 above high normal Not Available [facility] ([facility]) [address] [place], [address], 05/17/2025 08:07:43 05/16/2005/17/2025 FSH AND LH FSH 17.9 mIU/m L 1.5-12 .4 above high normal Not Available [facility] ([facility]) [address] [place], [address], 05/17/2025 08:07:43 05/16/2005/17/2025 TESTO STERO NE,FR EE AND TOTAL testosterone 538 NG/dL 264-91 6 normal Adult male refer ence inter david is based on a popul ation of healt hy nonob loi males (BMI <30) betwe en 19 and 39 years old. Sven garza, et.al . JCEM 2017, 102;1 161-1 173. PMID: 72345 103. Not Available [facility] ([facility]) [address] [place], [address], 05/17/2025 08:07:43 05/16/2005/17/2025 TESTO STERO NE,FR EE AND TOTAL free testosterone (direct) 2.4 pg/mL 6.6-18 .1 below low normal Not Available [facility] ([facility]) [address] [place], [address], 05/17/2025 08:07:43 05/16/2005/17/2025 PROLA CTIN prolactin 11.2 NG/mL 3.6-25 .2 normal Not Available [facility] ([facility]) [address] [facility], [place], [address], 05/17/2025 08:07:43 05/16/20 25 05/17/2025 ESTRA DIOL estradiol 26.2 pg/mL 7.6-42 .6 normal Chuy ECLIA metho dolog y Not Available [facility] ([facility]) [address] [facility], [place], [address], 05/17/2025 08:07:44 07/03/20 24 05/21/2024 CT, abdom en + pelvi s, w/ contr ast No observ ation record ed. [email or web address] Not Available 06/25 10:11:15 07/03/20 24 05/23/2024 MRI, abdom en, w/wo contr ast No observ ation record ed. [email or web address] Not Available 06/25 10:11:15 07/04/20 24 07/03/2024 PET-C T, whole body scan No observ ation record ed. [email or web address] [facility] [address] [place], [address], 07/24/2024 12:27:11 12/05/19 25 11/27/2024 nm cardi ac pyp amylo id study No observ ation record ed. [facility] Dept [address], [place], [address], 12/04/2024 17:15:14 05/07/2005/07/2025 mm digit al mammo bilat eral Bilate ral full field digita l breast tomosy nthesi s perfor med on a Hologi c Seleni a dimens ion with comput er aided detect ion with left breast ultras ound dated Octobe r 2024. No prior studie s are availa ble. HISTOR Y: Talus left breast mass. Densit y: There are scatte red areas of fibrog landul ar densit y. FINDIN GS: There is asymme tric increa sed densit y in the retroa reolar region s left much greate r than right. No suspic ious mass, nodule , valeria ectura l distor tion or groupe d microc alcifi cation s are seen. No skin thicke rossy or nipple retrac tion is apprec iated. Target ed left breast ultras ound shows findin gs consis tent with the classi c appear ance of gyneco mastia . IMPRES GREGG: Findin gs are consis tent with asymme tric gyneco mastia left greate r than right. Recomm endati on: Clinic al follow -up. Examin ation [id number] and [id number]. BI-RAD S 2 benign findin gs. Letter L3. Thank you for sukhdeep patel me to partic unrulyte in the care of this patien t. WSN: [id number] Rocky patel Physic sherrie: Asim Alan Dictdanilo ed By: Yong Kitchen MD Dictdanilo ed Date/T ryne: 4:02 pm Review ed By: Yong Kitchen MD Signed By: Yong Kitchen MD Signed Date/T ryne: 4:02 pm Transc ribed By: CSKristel Transc riptio n Date/T ryne: 3:48 pm Birads : Paticachorro t Class: [facility] [address] [facility], [place], [address], 05/22/2025 11:24:46 05/08/2005/07/2025 US, breas t, limit ed A D D E N D U M as of: [id number] Histor y: Palpab le left breast mass. WSN: [id number] Rocky patel Physic sherrie: Asim Alan Dictat ed By: Yong Kitchen MD Dictdanilo ed Date/T ryne: 10:39 a Review ed By: Yong Kitchen MD Signed By: Yong Kitchen MD Signed Date/T ryne: 10:39 am Transc ribed By: WENDY Transc ribed Date/T ryne: 10:38 am Bilate ral full field digita l breast tomosy nthesi s perfor med on a Hologi c Seleni a dimens ion with comput er aided detect ion with left breast ultras ound dated Octobe r 2024. No prior studie s are availa ble. HISTOR Y: Talus left breast mass. Densit y: There are scatte red areas of fibrog landul ar densit y. FINDIN GS: There is asymme tric increa sed densit y in the retroa reolar region s left much greate r than right. No suspic ious mass, nodule , valeria ectura l distor tion or groupe d microc alcifi cation s are seen. No skin thicke rossy or nipple retrac tion is apprec iated. Target ed left breast ultras ound shows findin gs consis tent with the classi c appear ance of gyneco mastia . IMPRES GREGG: Findin gs are consis tent with asymme tric gyneco mastia left greate r than right. Recomm endati on: Clinic al follow -up. Examin ation [id number] and [id number]. BI-RAD S 2 benign findin gs. Letter L3. Thank you for sukhdeep patel me to partic urnulyte in the care of this my t. WSN: [id number] Rocky patel Physic sherrie: Asim Alan Dictat ed By: Yong Kitchen MD Dictat ed Date/T ryne: 4:02 pm Review ed By: Yong Kitchen MD Signed By: Yong Kitchen MD Signed Date/T ryne: 4:02 pm Transc ribed By: WENDY Transc ribed Date/T ryne: 3:48 pm Patien t Class: Outpat ient [facility] (Outpt Imaging) [address] [place], [address], 05/24/2025 08:52:46 Result Notes None recorded. 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 [address], [place], [address] , [facility] 6 11:36:23 Inflamma tory polyarth ropathy 856349168 [facility] 09:16:07 Malignan t neoplasm of prostate 870060533 Active Coral 6, prostate ctomy. NELIDA Mena, [facility] 3 09:16:07 Nocturia 470559836 [facility] 3 09:16:07 Pain in toe 457091997 Completed 12/02/2023 Inez cobos [place] [facility], [facility] 4 09:52:02 Disorder of vein Completed 200702/06/2014 DATE: 06/2008; RECORDED 04/21/20 12 10:11AM BY ASIM ALCARAZ MD, ANNOTATI ON/ADDEN WILLIS Pelaez MD [address], [place], [address] , [facility] 6 09:07:17 Disorder of vein Completed 200703/01/2014 DATE: 06/2008; RECORDED 04/21/20 12 10:11AM BY ASIM ALCARAZ MD, ANNOTATI ON/ADDEN DUM Asim Pelaez MD [address], [place], [address] , [facility] 6 09:07:17 Disorder of vein Completed 200703/02/2014 DATE: 06/2008; RECORDED 04/21/20 12 10:11AM BY ASIM ALCARAZ MD, ANNOTATI ON/ADDEN DUM Asim Pelaez MD [address], [place], [address] , [facility] 6 09:07:17 Chest pain [id number] Completed 201102/06/2014 RECORDED 04/21/20 12 9:26AM BY LISETTE DAVENPORT ON/ADDEN DUM Bebeto Kelley MA [facility] 3 08:29:01 Screenin g for malignan t neoplasm of colon Completed 201102/06/2014 RECORDED 04/21/20 12 9:26AM BY LISETTE DAVENPORT ON/ADDEN WILLIS Pelaez MD [address], [place], [address] , [facility] 6 09:07:17 Cough [id number] Completed 201102/06/2014 RECORDED 04/21/20 12 9:26AM BY LISETTE DAVENPORT ON/ADDEN WILLIS Pelaez MD [address], [place], [address] , [facility] 6 09:07:16 Hypercho lesterol emia [id number] Completed 201102/06/2014 RECORDED 04/21/20 12 9:26AM BY LISETTE DAVENPORT ON/CHIDI Pelaez MD [address], [place], [address] , [facility] 6 09:07:16 Pure hypergly ceridemi a [id number] Completed 201102/06/2014 RECORDED 04/21/20 12 9:27AM BY LISETTE DAVENPORT ON/CHIDI Pelaez MD [address] [facility] [address], [place], [address] , [facility] 6 09:07:16 Sciatica [id number] Completed 201102/06/2014 RECORDED 04/21/20 12 9:26AM BY LISETTE DAVENPORT/CHIDI Pelaez MD [address] 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 [address], [place], [address] , [facility] 6 09:07:16 Chest pain 34837588 Completed 201103/01/2014 RECORDED 04/21/20 12 9:26AM BY LISETTE DAVENPORT ON/ADDEN DUM Bebeto Kelley MA null, [facility] 3 08:29:01 Screenin g for malignan t neoplasm of colon Completed 201103/01/2014 RECORDED 04/21/20 12 9:26AM BY LISETTE DAVENPORT ON/ADDEN WILLIS Pelaez MD [address] [facility] [address], [place], [address] , [facility] 6 09:07:17 Cough [id number] Completed 201103/01/2014 RECORDED 04/21/20 12 9:26AM BY LISETTE DAVENPORT ON/ADDEN WILLIS Pelaez MD [address] [facility] [address], [place], [address] , [facility] 6 09:07:16 Hypercho lesterol emia [id number] Completed 201103/01/2014 RECORDED 04/21/20 12 9:26AM BY LISETTE DAVENPORT ON/ADDEN WLILIS Pelaez MD [facility] [address], [place], [address] , [facility] 6 09:07:16 Pure hypergly ceridemi a 960218305 Completed 201103/01/2014 RECORDED 04/21/20 12 9:27AM BY LISETTE DAVENPORT ON/ADDEN DUM Asim Pelaez MD [address] 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, cornea, retina and choroid 096883317 Completed 201103/01/2014 STORY: DIAGNOSE D AND TREATED 2006; RECORDED 04/21/20 12 9:27AM BY LISETTE DAVENPORT ON/CHIDI Pelaez MD [address], [place], [address] , [facility] 6 09:07:16 Chest pain 10569586 Completed 201103/02/2014 RECORDED 04/21/20 12 9:26AM BY LISETTE DAVENPORT ON/CHIDI Kelley [facility] 3 08:29:01 Screenin g for malignan t neoplasm of colon Completed 201103/02/2014 RECORDED 04/21/20 12 9:26AM BY LISETTE DAVENPORT ON/CHIDI Pelaez MD [address], [place], [address] , [facility] 6 09:07:17 Cough [id number] Completed 201103/02/2014 RECORDED 04/21/20 12 9:26AM BY LISETTE DAVENPORT/CHIDI Pelaez MD [address], [place], [address] , [facility] 6 09:07:16 Hypercho lesterol emia [id number] Completed 201103/02/2014 RECORDED 04/21/20 12 9:26AM BY LISETTE DAVENPORT/CHIDI Pelaez MD [address], [place], [address] , [facility] 6 09:07:16 Pure hypergly ceridemi a 068583390 Completed 201103/02/2014 RECORDED 04/21/20 12 9:27AM BY LISETTE DAVENPORT ON/ADDEN WILLIS Pelaez MD [address], [place], [address] , [facility] 6 09:07:16 Sciatica [id number] Completed 201103/02/2014 RECORDED 04/21/20 12 9:26AM BY ELVER DAVENPORTATI ON/ADDEN WILLIS Pelaez MD [address] [facility] [address], [place], [address] , [facility] 6 09:07:16 Dyspnea 693067550 Completed 201103/02/2014 RECORDED 04/21/20 12 9:26AM BY LISETTE DAVENPORT ON/ADDEN DUM Inez NELIDA Gallegos, [facility] 7 13:48:20 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, cornea, retina and choroid 266113927 Completed 201103/02/2014 STORY: DIAGNOSE D AND TREATED 2006; RECORDED 04/21/20 12 9:27AM BY LISETTE DAVENPORT ON/CHIDI Pelaez MD [address] [facility] [address], [place], [address] , [facility] 6 09:07:16 Hyperten sive disorder 90918935 Completed 201102/13/2021 Asim Pelaez MD [address] [facility] [address], [place], [address] , [facility] 1 10:27:48 Diabetes mellitus 75787906 Completed 201101/08/2021 Asim Pelaez MD [address] [facility] [address], [place], [address] , [facility] 2 10:51:06 Hyperten sive disorder 48203185 Active 2011 Not Available [facility] 2 09:44:50 Influenz a vaccine needed 66547278695 06 Completed 201102/06/2014 RECORDED 07/22/20 12 11:42AM BY TERRIE PAZ MA, LISETTE CROSS/CHIDI Pelaez MD [address] [facility] [address], [place], [address] , [facility] 6 09:07:16 Renewal of prescrip tion Completed 201102/06/2014 RECORDED 07/22/20 12 11:42AM BY TERRIE PAZ MA, ANNOTATI ON/CHIDI Pelaez MD [address] [facility] [address], [place], [address] , [facility] 6 09:07:17 Influenz a vaccine needed 35644632052 06 Completed 201103/01/2014 RECORDED 07/22/20 12 11:42AM BY TERRIE PAZ MA, ANNOTATI ON/CHIDI Pelaez MD [address] [facility] [address], [place], [address] , [facility] 6 09:07:16 Renewal of prescrip tion Completed 201103/01/2014 RECORDED 07/22/20 12 11:42AM BY TERRIE PAZ MA, ANNOTATI ON/CHIDI Pelaez MD [address] [facility] [address], [place], [address] , [facility] 6 09:07:17 Influenz a vaccine needed 83208306224 06 Completed 201103/02/2014 RECORDED 07/22/20 12 11:42AM BY TERRIE PAZ MA, ANNOTATI ON/CHIDI Pelaez MD [address] [facility] [address], [place], [address] , [facility] 6 09:07:16 Renewal of prescrip tion Completed 201103/02/2014 RECORDED 07/22/20 12 11:42AM BY TERRIE PAZ MA, ANNOTATI ON/ADDEN DUM Asim Pelaez MD [address] [address], [place], [address] , [facility] 6 09:07:17 Rheumato id arthriti s 41204010 Active [address] Chao ; on methotre xate; hydroxyc hloroqui ne and predniso ne. No Calvillo MA [facility] 5 11:28:46 Low back pain 445438925 Active 2012 Seen at [facility]; will have MRI and then injectio n. Also seen a Pain Mgmt and had help with injectio n under flurosco py. Andria Hammer MA null, [facility] 3 09:16:07 Active or passive immuniza tion Completed 201202/06/2014 RECORDED 07/28/19 13 3:24PM BY ASIM ALCARAZ MD, OFFICE VISIT Asim Pelaez MD [address] [address], [place], [address] , [facility] 6 09:07:16 Active or passive immuniza tion Completed 201203/01/2014 RECORDED 07/28/19 13 3:24PM BY ASIM ALCARAZ MD, OFFICE VISIT Asim Pelaez MD [address] [address], [place], [address] , [facility] 6 09:07:17 Active or passive immuniza tion Completed 201203/02/2014 RECORDED 07/28/19 13 3:24PM BY ASIM ALCARAZ MD, OFFICE VISIT Asim Pelaez MD [address] [address], [place], [address] , [facility] 6 09:07:17 Divertic ulitis of colon 086581122 Completed 201202/06/2014 RECORDED 08/11/19 13 9:58AM BY ASIM ALCARAZ MD, ANNOTATI ON/ADDEN DUM Asim Pelaez MD [address] [facility] [address], [place], [address] , [facility] 6 09:07:16 Divertic ulitis of colon 917781742 Completed 201203/01/2014 RECORDED 08/11/19 13 9:58AM BY ASIM ALCARAZ MD, LISETTE ON/ADDEN WILLIS Pelaez MD [address] [facility] [address], [place], [address] , [facility] 6 09:07:16 Divertic ulitis of colon 131774504 Completed 201203/02/2014 RECORDED 08/11/19 13 9:58AM BY ASIM ALCARAZ MD, LISETTE ON/ADDEN WILLIS Pelaez MD [address] [facility] [address], [place], [address] , [facility] 6 09:07:16 Administ ration of diphther ia and tetanus vaccine Completed 201202/06/2014 RECORDED 08/13/19 13 9:50AM BY LAZARUS BONDS I, LISETTE ON/ADDEN WILLIS Pelaez MD [address] [facility] [address], [place], [address] , [facility] 6 09:07:17 Administ ration of diphther ia and tetanus vaccine Completed 201203/01/2014 RECORDED 08/13/19 13 9:50AM BY LAZARUS BONDS I, LISETTE ON/ADDEN WILLIS Pelaez MD [address] [facility] [address], [place], [address] , [facility] 6 09:07:17 Administ ration of diphther ia and tetanus vaccine Completed 201203/02/2014 RECORDED 08/13/19 13 9:50AM BY LISETTE DAVENPORT ON/CHIDI Pelaez MD [address] [facility] [address], [place], [address] , [facility] 6 09:07:17 Shoulder joint pain 204469348 Completed 201202/06/2014 IMPRESSI ON: DOUBT PMR GIVEN THE LACK OF OTHER SX. PROBABLE TENDINIT IS/BURSI TIS. HE MAY BENEFIT FROM INJECTIO N.; RECORDED 11/22/19 13 9:39AM BY LISETTE DAVENPORT ON/CHIDI Pelaez MD [address] [facility] [address], [place], [address] , [facility] 6 09:07:16 Shoulder joint pain 765801346 Completed 201203/01/2014 IMPRESSI ON: DOUBT PMR GIVEN THE LACK OF OTHER SX. PROBABLE TENDINIT IS/BURSI TIS. HE MAY BENEFIT FROM INJECTIO N.; RECORDED 11/22/19 13 9:39AM BY LISETTE DAVENPORT ON/CHIDI Pelaez MD [address] [facility] [address], [place], [address] , [facility] 6 09:07:16 Shoulder joint pain 271263838 Completed 201203/02/2014 IMPRESSI ON: DOUBT PMR GIVEN THE LACK OF OTHER SX. PROBABLE TENDINIT IS/BURSI TIS. HE MAY BENEFIT FROM INJECTIO N.; RECORDED 11/22/19 13 9:39AM BY LISETTE DAVENPORT ON/CHIDI Pelaez MD [address] [address], [place], [address] , [facility] 6 09:07:16 Dermatop hytosis of scalp or nava Completed 201202/06/2014 IMPRESSI ON: ADVISED TO USE OTC CLOTRIMA ZOLE AND TO SHOW HIS DERMATOL OGIST, DR BASS WHO HE WILL BE SEEING IN 3 WEEKS IF IT IS STILL PRESENT. ; RECORDED 02/02/20 13 11:43AM BY LISETTE DAVENPORT/CHIDI Pelaez MD [address], [place], [address] , [facility] 6 09:07:16 Dermatop hytosis of scalp or nava Completed 201203/01/2014 IMPRESSI ON: ADVISED TO USE OTC CLOTRIMA ZOLE AND TO SHOW HIS DERMATOL OGIST, DR BASS WHO HE WILL BE SEEING IN 3 WEEKS IF IT IS STILL PRESENT. ; RECORDED 02/02/20 13 11:43AM BY LISETTE DAVENPORT/CHIDI Pelaez MD [address], [place], [address] , [facility] 6 09:07:16 Dermatop hytosis of scalp or nava Completed 201203/02/2014 IMPRESSI ON: ADVISED TO USE OTC CLOTRIMA ZOLE AND TO SHOW HIS DERMATOL OGIST, DR BASS WHO HE WILL BE SEEING IN 3 WEEKS IF IT IS STILL PRESENT. ; RECORDED 02/02/20 13 11:43AM BY LISETTE DAVENPORT/CHIDI Pelaez MD [address], [place], [address] , [facility] 6 09:07:16 Hydronep hrosis 05015141 Active [address] Duncan pt will make a f[facility] 3 09:16:07 Laborato ry procedur e performe d 074896675 Completed 201302/06/2014 RECORDED 08/09/19 14 1:05PM BY LISETTE DAVENPORT ON/CHIDI Pelaez MD [address] [facility] [address], [place], [address] , [facility] 6 09:07:17 Overweig ht [id number] Completed 201302/06/2014 RECORDED 11/09/19 14 9:28AM BY LISETTE DAVENPORT ON/CHIDI Pelaez MD [address], [place], [address] , [facility] 6 09:07:16 Tobacco user [id number] Completed 201302/06/2014 RECORDED 11/09/19 14 9:28AM BY LISETTE DAVENPORT ON/CHIDI Pelaez MD [address] [facility] [address], [place], [address] , [facility] 6 09:07:16 History of clinical finding in subject 369359359 Completed 201303/21/2014 RECORDED 11/09/19 14 9:28AM BY LISETTE DAVENPORT/CHIDI Pelaez MD [address] [facility] [address], [place], [address] , [facility] 6 09:07:17 Adult health examinat ion Completed 201302/06/2014 RECORDED 11/09/19 14 9:28AM BY LISETTE DAVENPORT ON/CHIDI Pelaez MD [address] [facility] [address], [place], [address] , [facility] 6 09:07:17 Overweig ht [id number] Completed 201303/01/2014 RECORDED 11/09/19 14 9:28AM BY LISETTE DAVENPORT ON/CHIDI Pelaez MD [address], [place], [address] , [facility] 6 09:07:16 Tobacco user [id number] Completed 201303/01/2014 RECORDED 11/09/19 14 9:28AM BY LISETTE DAVENPORT ON/CHIDI Pelaez MD [address], [place], [address] , [facility] 6 09:07:16 Adult health examinat ion Completed 201303/01/2014 RECORDED 11/09/19 14 9:28AM BY LISETTE DAVENPORT ON/CHIDI Pelaez MD [address] [facility] [address], [place], [address] , [facility] 6 09:07:17 [facility] ht [id number] Completed 201303/02/2014 RECORDED 11/09/19 14 9:28AM BY LISETTE DAVENPORT ON/CHIDI Pelaez MD [address] [facility] [address], [place], [address] , [facility] 6 09:07:16 Tobacco user [id number] Completed 201303/02/2014 RECORDED 11/09/19 14 9:28AM BY LISETTE DAVENPORT ON/CHIDI Pelaez MD [address] [facility] [address], [place], [address] , [facility] 6 09:07:16 Adult health examinat ion Completed 201303/02/2014 RECORDED 11/09/19 14 9:28AM BY LISETTE DAVENPORT ON/CHIDI Pelaez MD [address] [facility] [address], [place], [address] , [facility] 6 09:07:17 Laborato ry procedur e performe d 549675402 Completed 201303/21/2014 RECORDED 11/24/19 14 10:44AM BY LUKE NOLEN, LAB REQ Asim Pelaez MD [address] [facility] [address], [facility] [place], [address] , [facility] 6 09:07:17 Hyperlip idemia 38254674 Active 2015 Not Available [facility] 2 09:44:50 Dyspnea 156194188 Active 2016 NELIDA Mena, [facility] 3 09:16:07 Hyperten sive renal disease 12082787 Active 2016 NELIDA Mena, [facility] 3 09:16:07 Lumbosac ral spondylo sis without myelopat hy 20399442 Active 2016 Followed by Pain Mgmt NELIDA Mena, [facility] 3 09:16:08 Stable angina 144155723 Active 2016 Mid LAD lesion 60% stenosis , reduced NELIDA Velazquez, [facility] 5 11:28:46 Coronary arterios clerosis 77350201 Active 2016 s/p KEYON to LAD May 2017. Had a cardiac w/u September 2020 which was negative for ischemia . Also no signific ant progress ion on cath April 2024 NELIDA Velazquez, [facility] 5 11:28:46 Chest pain 44695975 Completed 201709/02/2022 Admitted bisi t to [facility] and ruled out. NELIDA Mark, [facility] 3 08:29:01 Insomnia 855921032 Active 2017 NELIDA Mena, [facility] 3 09:16:07 Eczema 07459241 Active 2017 NELIDA Mena, [facility] 3 09:16:08 Neuropat hy due to diabetes mellitus 606218809 Active 2017 Not Available [facility] 2 09:44:50 Inflamma tion of sacroili ac joint 06768346 Active 2017 Followed by Pain Mgmt; right sided NELIDA Mena, [facility] 3 09:16:08 Basal cell carcinom a of skin 895434287 Active 2017 NELIDA Mena, [facility] 3 09:16:07 Spinal stenosis of lumbar region 56820107 Active 2017 Schedule d for surgery with NELIDA Oneal, [facility] 5 11:28:45 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 2017 Treated at [facility] NELIDA Mena, [facility] 3 09:16:07 Chronic kidney disease due to hyperten gregg 31771891058 9100 Completed 201902/13/2021 Asim Pelaez MD [address] [facility] [address], [place], [address] , [facility] 1 10:27:38 Chronic kidney disease due to hyperten gregg 68232734096 9100 Active 2019 Not Available [facility] 2 09:44:50 Squamous cell carcinom a of skin 072789719 Active 2019 NELIDA Mena, [facility] 3 09:16:07 Type 2 diabetes mellitus 42101644 Completed 202001/08/2021 Rochelle Tong PA-C [address] [facility] [address], [place], [address] , [facility] 1 10:58:00 Major depressi ve disorder 650406533 Active 2020 NELIDA Mena, [facility] 3 09:16:07 Renal disorder due to type 1 diabetes mellitus 973345772 Completed 202001/08/2021 Asim Pelaez MD [address] [facility] [address], [place], [address] , [facility] 2 10:48:06 Hyperten gregg monitori ng status 394531687 Active 2021 disenrol led NELIDA Mena, [facility] 3 09:16:07 Expressi ve language disorder 995094626 Active 2021 NELIDA Mena, [facility] 3 09:16:07 History of malignan t neoplasm of eye 11302231360 9106 Active 2021 NELIDA Mena, [facility] 3 09:16:07 Chronic kidney disease stage 3B 177045698 Active 2021 NELIDA Mena, [facility] 3 09:16:08 History of SARS-CoV -2 44062667222 2034970 Active 2021 Also tested positive in July. Took paxlovid . NELIDA Mena, [facility] 3 09:16:07 Pneumoni tis 989188365 Active 2022 NELIDA Mena, [facility] 3 09:16:07 Chronic insomnia 851228171 Active 2022 NELIDA Mena, [facility] 3 09:16:08 Acquired phimosis 224655401 Active 2022 followed by urology and treated with steroid cream Asim Pelaez MD [address] 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 As of 2024 this has been failing and another procedur e was not approved by his insuranc e. Asim Pelaez MD [address], [place], [address] , [facility] 5 08:22:08 Glaucoma suspect 417196417 Active 2022 Asim Pelaez MD [address], [place], [address] , [facility] 3 14:44:21 Mild neurocog nitive disorder 376445405 Active 2023 Seen by [facility] July 2023. Recommen ded aricept. Will be followed every 6 months. Asim Pelaez MD [address], [place], [address] , [facility] 4 10:43:14 COVID-19 987565802 Completed 202312/02/2023 Inez cobos MA null, [facility] 4 14:25:14 Right bundle branch block 30729574 Active 2023 Inez cobos MA null, [facility] 4 09:51:00 COVID-19 172116956 Completed 202301/13/2024 Inez cobos MA null, [facility] 4 14:25:14 Prolonge d QT interval 262471505 Active 2023 Zach Espinoza [facility] [address], [place], [address] , [facility] 4 10:08:16 Hypokale jaki 44962073 Active 2023 [facility] [address] [facility] [address], [place], [address] , [facility] 4 10:19:28 Hypomagn esemia 741112782 Active 2023 Zach [facility]ino[facility] [address] [facility] [address], [place], [address] , [facility] 4 09:11:21 Minimal cognitiv e impairme nt 089454600 Active 2023 Asim Pelaez MD [address] [facility] [address], [place], [address] , [facility] 4 08:18:00 Nonische favian congesti ve cardiomy opathy 57485829842 4 Active 2024 EF 40-45 % December 2023 NYHA II Asim Pelaez MD [address] [facility] [address], [place], [address] , [facility] 5 15:12:42 Problem Notes None recorded. Procedures Surgical History Date Name Laterality Status Provider Name and Address Organization Details Recorded Time 07/05/20 diabetic retinopathy screening completed Carmen Ovalle [facility] 07/07/2024 09:12:31 04/10/20 24 angiography of coronary artery completed Carmen Ovalle [facility] 04/11/2024 08:19:41 01/19/20 24 Echo transthoracic completed Carmen Ovalle [facility] 01/24/2024 11:20:55 10/14/19 24 Diabetic Foot Exam (Monofilament) completed Asim Pelaez MD [address] [facility] [address], [place], [address], [facility] 10/14/2023 19:20:00 08/13/19 24 lumbar epidural steroid injection completed Carmen Ovalle [facility] 08/13/2023 09:37:49 06/29/20 23 Diabetic Foot Exam (Monofilament) completed Asim Pelaez MD [address] [address], [place], [address], [facility] 06/30/2023 17:53:16 11/11/19 23 shoulder injection completed Carmen Ovalle [facility] 11/11/2022 08:43:04 09/24/19 23 injection into lumbar epidural space completed Carmen Ovalle [facility] 09/28/2022 09:37:54 09/11/19 23 Cardiovascular stress test completed Carmen Ovalle [facility] 09/17/2022 11:02:40 10/24/19 22 Diabetic Foot Exam (Monofilament) completed Andria Hammer MA [facility] 10/23/2021 11:16:59 07/24/20 21 Egd biopsy single/multiple completed Asim Pelaez MD [address], [address], [facility] 08/12/2021 16:56:25 07/24/20 21 Colonoscopy with biopsy completed Asim Pelaez MD [address] [address], [place], [address], [facility] 08/12/2021 16:57:51 03/25/20 21 Diabetic Foot Exam (Monofilament) completed Nohemi Bazan MA [facility] 03/25/2021 11:13:46 01/09/20 21 Diabetic Foot Exam (Monofilament) completed Terrie Paz MA [facility] 01/08/2021 10:23:01 08/13/19 21 Diabetic Foot Exam (Monofilament) completed Asim Pelaez MD [address], [address], [facility] 08/13/2020 12:09:58 04/24/20 20 Diabetic Foot Exam (Monofilament) completed Lilibeth Monroy MA [facility] 04/24/2020 09:52:20 04/23/20 20 excision of scalp mass completed [facility] 04/24/2020 09:44:15 04/23/20 20 local advancement flap completed [facility] [facility] 04/24/2020 09:42:54 04/23/20 20 chest wall excision completed [facility] 04/24/2020 09:44:07 04/23/20 20 local advancement flap completed [facility] 04/24/2020 09:49:10 01/23/20 20 Six-Item Cognitive Test completed Lazarus Reynolds [facility] 01/23/2020 09:36:41 04/24/20 19 Diabetic Foot Exam (Monofilament) completed Lazarus Reynolds [facility] 04/24/2019 13:22:41 02/16/20 19 injection completed Rahel Nolen [facility] 02/17/2019 11:21:50 01/21/20 19 Mini-Cog Test completed Aggie Serra MA [facility] 01/20/2019 11:03:37 10/06/19 19 Diabetic Foot Exam (Monofilament) completed Terrie Paz MA [facility] 10/05/2018 12:57:34 06/14/20 18 Tte w/doppler complete completed Jacquelin Kurtz [facility] 06/17/2018 13:46:06 05/23/20 18 primary transforaminal interbody fusion of joint of lumbar spine completed Rahel Nolen [facility] 05/27/2018 11:57:33 03/07/20 18 Diabetic Foot Exam (Monofilament) completed Aggie Serra MA [facility] 03/07/2018 10:50:50 02/16/20 18 Njx interlaminar lmbr/sac completed Rahelwinston Nolen [facility] 02/18/2018 15:41:25 12/09/19 18 Diabetic Foot Exam (Monofilament) completed Asim Pelaez MD [address], [place], [address], [facility] 12/08/2017 13:04:41 08/24/19 18 Excision of Melanoma completed Orquidea Thomas [facility] 09/11/2017 11:27:03 05/26/20 17 Coronary artery angio s&i completed Asim Pelaez MD [address] [facility] [address], [place], [address], [facility] 05/27/2017 07:01:15 06/10/20 16 Hydrocortisone acetate inj completed Lazarus Reynolds [facility] 06/22/2016 16:22:06 10/16/19 16 Advanced Care Planning completed Lazarus Reynolds [facility] 10/16/2015 11:04:00 03/27/20 15 Mini-Cog Test completed Lazarus Reynolds [facility] 03/27/2015 13:22:16 03/26/20 11 Orthopedic Surgery completed Lazarus Reynolds [facility] 10/16/2015 10:51:26 11/24/19 07 Joint Replacement completed Lazarus Reynolds [facility] 10/16/2015 10:51:26 07/26/19 04 Prostate Surgery completed Lazarus Reynolds [facility] 10/16/2015 10:51:26 07/26/19 03 Vasectomy completed Asim Pelaez MD [address] [facility] [address], [place], [address], [facility] 04/02/2014 09:14:24 04/25/19 90 Other completed Lazarus Reynolds [facility] 10/16/2015 10:51:26 Other completed Lazarus Reynolds [facility] 10/16/2015 10:51:26 Other completed Radha Wilson [facility] 03/21/2014 08:21:55 Imaging Results None recorded. Procedure Notes None recorded. Medical Equipment None Reported. Allergies Allergen ID Allergen Name Allergen Category Reaction Reaction Severity Criticality Documentation Date Start Date Code Code System Note Provider Name and Address Organization Details Recorded Time 41246 lisinopri l medicatio n cough Not available Not available 02/26/20172013 04502 RxNorm No NELIDA Calvillo, [facility] 5 11:28:38 37019 metformin medicatio n abdominal pain moderate Not available 01/08/2021 6809 RxNorm Rochelle Tong PA-C [address] [facility] [address] [address] [facility] 1 11:05:54 3633 Product containin g angiotens in-conver ting enzyme inhibitor (product) medicatio n cough Not available Not available 02/06/20142013 68431 009 SNOMED NELIDA Davila, [facility] 1 10:23:34 Medications Name Sig Start Date Stop Date Status Note LastModified by Organization Details LastModified Time amoxicill in 500 mg capsule TAKE 1 CAPSULE BY MOUTH TWICE A DAY DIRECTED ON DAY OF PROCEDUR E 12/02 completed Not Available Not Available Not Available azithromy gato 250 mg capsule DIRECTED active RECORDED 02/02/20 13 11:51AM BY LISETTE DAVENPORT ON/ADDEN DUM; Not Available Not Available Not Available atorvasta tin 40 mg tablet DAILY active RECORDED 07/16/20 11 11:00AM BY ASIM ALCARAZ MD, ANNOTATI ON/ADDEN DUM; Not Available Not Available Not Available metformin 500 mg tablet active Not Available Not Available Not Available neomycin- polymyxin -hydrocor t 3.5 mg/mL-10, 000 unit/mL-1 % ear solution active Not Available Not Available Not Available atorvasta tin 80 mg tablet TAKE 1 TABLET BY MOUTH EVERY DAY active Not Available Not Available No t Available acetamino phen 325 mg tablet Take 1 tablet as needed by oral route. active Not Available Not Available No t Available doxycycli ne hyclate 100 mg capsule TAKE ONE CAPSULE BY MOUTH TWICE DAILY X 5 DAYS WITH FOOD AND WATER. 12/20 completed Not Available Not Available Not Available carvedilo l 12.5 mg tablet TAKE 1 TABLET BY MOUTH TWICE A DAY WITH FOOD active Not Available Not Available No t Available donepezil 5 mg tablet Take 0.5 tablets every day by oral route at bedtime. 01/12 completed Had a prolonge d QT. Not Available Not Available Not Available tizanidin e 2 mg tablet TAKE 1 TABLET BY MOUTH EVERY 8 HOURS FOR 14 DAYS 08/25 completed 06/01/24 does not recogniz e Not Available Not Available Not Available trazodone 50 mg tablet Take 0.5 tablets every day by oral route at bedtime for 90 days. 08/25 completed 06/01/24 does not recogniz e Not Available Not Available Not Available cetirizin e 10 mg tablet Take 1 tablet every day by oral route for 30 days. 09/01 completed Not Available Not Available Not Available azithromy gato 250 mg tablet 07/08 completed Not Available Not Available Not Available benzonata te 200 mg capsule TAKE 1 CAPSULE BY MOUTH THREE TIMES A DAY DIRECTED FOR 10 DAYS 09/02 completed Not Available Not Available Not Available metoprolo l succinate ER 50 mg tablet,ex tended release 24 hr Take 1 tablet every day by oral route. 05/04 completed Not Available Not Available Not Available hydrocodo ne 5 mg-acetam inophen 325 mg tablet 06/27 completed Not Available Not Available Not Available glipizide ER 10 mg tablet, extended release 24 hr TWO TIMES DAILY active Not Available Not Available No t Available prednison e 20 mg tablet Take 2 tablets every day by oral route. 10/12 completed Not Available Not Available Not Available lovastati n 40 mg tablet Take 1 tablet every day by oral route. 09/01 completed Not Available Not Available Not Available fluoroura cil 5 % topical cream Apply 1 applicat ion every day by topical route as needed for 14 days. 06/27 completed apply to scalp Not Available Not Available Not Available gabapenti n 400 mg capsule TAKE 1 CAPSULE BY MOUTH THREE TIMES A DAY active Not Available Not Available No t Available sertralin e 100 mg tablet TAKE 1 TABLET BY MOUTH EVERY DAY 2024 active Not Available Not Available Not Avai lable prednison e 5 mg tablet active Not Available Not Available Not Available glipizide ER 5 mg tablet, extended release 24 hr 1 in am and 2 in pm 12/08 completed Not Available Not Available Not Available atenolol 50 mg-chlort halidone 25 mg tablet DAILY 02/01 completed RECORDED 02/02/20 13 11:51AM BY LAZARUS BONDS I, ANNOTATI ON/ DUM; Not Available Not Available Not Available cyanocoba lina (vit B-12) 1,000 mcg tablet TAKE 1 TABLET BY MOUTH EVERY DAY 10/23 completed B12 level running high. Not Available Not Available Not Available cephalexi n HCl 500 mg tablet 1 {tbl} by oral route. 01/07 completed Not Available Not Available Not Available melatonin 3 mg tablet Take 1 tablet every day by oral route at bedtime. active Not Available Not Available No t Available clopidogr el 75 mg tablet 01/07 completed Not Available Not Available Not Available amlodipin e 5 mg tablet TAKE 1 TABLET BY MOUTH EVERY DAY FOR 90 DAYS, FOR HIGH BLOOD PRESSURE . active Not Available Not Available No t Available ciproflox acin 500 mg tablet TAKE 1 TABLET BY MOUTH EVERY 12 HOURS FOR 7 DAYS 04/10 completed Not Available Not Available Not Available sulfameth oxazole 800 mg-trimet hoprim 160 mg tablet 1 TABLET TWICE A DAY 06/29 completed Not Available Not Available Not Available triamcino lone acetonide 0.1 % topical cream APPLY A THIN LAYER TO THE AFFECTED AREA(S) BY TOPICAL ROUTE 2 TIMES PER DAY 10/08 completed Not Available Not Available Not Available temazepam 7.5 mg capsule Take 1 capsule as needed by oral route at bedtime for 30 days. 09/09 completed Not Available Not Available Not Available Prednison e (Billy) 10 mg tablet DAILY 08/09 completed RECORDED 08/09/19 14 1:39PM BY ASIM ALCARAZ MD, ANNOTATI ON/ DUM; Not Available Not Available Not Available oxycodone -acetamin ophen 5 mg-325 mg tablet EVERY EIGHT HOURS, NEEDED 09/08 completed RECORDED 09/21/19 13 3:40PM BY ASIM ALCARAZ MD, MEDICATI ON AUTO-LYUDMILA CTIVATIO N; Not Available Not Available Not Available ofloxacin 0.3 % ear drops Instill 10 drops every day by otic route as directed for 10 days. 10/09 completed Not Available Not Available Not Available Fluticaso ne Propionat e (Inhal) 50 mcg/BLIST inhl powd EACH NOSTRIL DAILY 08/15 completed RECORDED 09/28/19 12 8:09AM BY ASIM ALCARAZ MD, MEDICATI ON AUTO-LYUDMILA CTIVATIO N; Not Available Not Available Not Available prednisol one acetate 1 % eye drops,[facility] LOCATION : LEFT EYE. ONE DROP TO THE LEFT EYE FOUR TIMES DAILY FOR FIVE DAYS 06/11 completed Not Available Not Available Not Available magnesium oxide 400 mg (241.3 mg magnesium ) tablet TAKE 1 TABLET BY MOUTH EVERY DAY DIRECTED 01/12 completed Not Available Not Available Not Available lorazepam 0.5 mg tablet TAKE 1 TABLET BY MOUTH 1 HOUR BEFORE PROCEDUR EMUST HAVE RIDE ON DAY OF PROCEDUR E DIR 11/09 completed Not Available Not Available Not Available methotrex ate sodium 2.5 mg tablet TAKE 7 TABLETS BY MOUTH ONCE A WEEK DIRECTED active Not Available Not Available No t Available tamsulosi n 0.4 mg capsule Take 1 capsule every day by oral route. 12/20 completed Not Available Not Available Not Available prednison e 1 mg tablet Take 1 tablet every day by oral route for 30 days. 01/19 completed Not Available Not Available Not Available amlodipin e 10 mg tablet Take 1 tablet every day by oral route. 12/20 completed Not Available Not Available Not Available bisacodyl 10 mg rectal supposito ry Insert 1 supposit ory every day by rectal route as needed. active Not Available Not Available No t Available prednison e 2.5 mg tablet TAKE 1 TABLET BY MOUTH EVERY DAY active Not Available Not Available No t Available cephalexi n 500 mg capsule Take 1 capsule as needed by oral route. 11/12 completed For dental work Not Available Not Available Not Available pantopraz ole 40 mg tablet,de layed release TAKE 1 TABLET BY MOUTH EVERY DAY 11/12 completed Not Available Not Available Not Available lidocaine 5 % topical patch 09/30 completed Not Available Not Available Not Available valsartan 320 mg tablet TAKE 1 TABLET BY MOUTH EVERY DAY FOR HIGH BLOOD PRESSURE active Not Available Not Available No t Available metronida zole 0.75 % topical cream Apply 2 applicat ions every day by topical route for 30 days. 07/11 completed Not Available Not Available Not Available betametha sone dipropion ate 0.05 % topical cream APPLY TO AFFECTED AREA 3 TIMES A DAY INSTRUCT ED NEEDED active Not Available Not Available No t Available gabapenti n 300 mg capsule Take 1 capsule 3 times a day by oral route. 08/25 completed 06/01/24- verify dose, pt states taking TID and d/c summ said HS only Not Available Not Available Not Available sertralin e 25 mg tablet Take 1 tablet every day by oral route. 12/01 completed Not Available Not Available Not Available lisinopri l 20 mg-hydroc hlorothia zide 25 mg tablet DAILY 06/09 completed RECORDED 06/09/20 11 8:47AM BY ASIM ALCARAZ MD, ANNOTATI ON/CHIDI DUM; Not Available Not Available Not Available aspirin 81 mg chewable tablet Chew 1 tablet every day by oral route. 02/13 completed Not Available Not Available Not Available cephalexi n 500 mg tablet Take 1 {tbl} by oral route. 12/31 completed Not Available Not Available Not Available folic acid 1 mg tablet TAKE 1 TABLET BY MOUTH EVERY DAY active Not Available Not Available No t Available mupirocin 2 % topical ointment APPLY TWICE DAILY TO BLISTER OF THE LEFT HEEL UNTIL HEALED. 12/01 completed Not Available Not Available Not Available zolpidem 5 mg tablet TAKE 1 TABLET BY MOUTH EVERYDAY AT BEDTIME FOR 30 DAYS 08/26 completed Not safe in the [facility]. Not Available Not Available Not Available furosemid e 20 mg tablet Take 1 tablet every day by oral route for 7 days. 01/20 completed Not Available Not Available Not Available gabapenti n 100 mg capsule Take 1 capsule 3 times a day by oral route. active Not Available Not Available No t Available metoprolo l succinate ER 25 mg tablet,ex tended release 24 hr 09/01 completed Not Available Not Available Not Available Cheratuss in AC 10 mg-100 mg/5 mL oral liquid Take 10 mL twice a day by oral route for 10 days. 05/10 completed Not Available Not Available Not Available hydroxych loroquine 200 mg tablet TAKE 1 TABLET BY MOUTH TWICE A DAY active Not Available Not Available No t Available cefuroxim e axetil 500 mg tablet TAKE 1 TABLET BY MOUTH TWICE A DAY 12/20 completed Not Available Not Available Not Available levofloxa gato 500 mg tablet Take 1 tablet every 24 hours by oral route as directed for 7 days. 08/07 completed Not Available Not Available Not Available levofloxa gato 750 mg tablet Take 1 tablet every day by oral route for 7 days. 10/09 completed Not Available Not Available Not Available zolpidem 10 mg tablet TAKE 1 TABLET BY MOUTH EVERY DAY 11/12 completed Not Available Not Available Not Available ketoconaz ole 2 % topical cream Apply 1 applicat ion every day by topical route as needed for 30 days. 06/01 completed Not Available Not Available Not Available fluticaso ne propionat e 50 mcg/actua tion nasal spray,priti pension INSTILL 2 SPRAYS INTO EACH NOSTRIL EVERY DAY FOR ALLERGIC RHINITIS . active Not Available Not Available No t Available metformin ER 500 mg tablet,ex tended release 24 hr 01/07 completed Not Available Not Available Not Available clotrimaz ole 1 % topical cream APPLY TO AFFECTED AREA TWICE A DAY FOR 14 DAYS 04/10 completed Not Available Not Available Not Available betametha sone dipropion ate 0.05 % lotion 09/30 completed Not Available Not Available Not Available sertralin e 50 mg tablet TAKE 1 TABLET BY MOUTH EVERY DAY FOR DEPRESSI ON 04/10 completed Not Available Not Available Not Available doxycycli ne hyclate 100 mg tablet Take 1 tablet twice a day by oral route for 10 days. 04/15 completed Not Available Not Available Not Available atenolol 50 mg tablet DAILY 02/20 completed RECORDED 02/21/20 13 2:16PM BY ASIM ALCARAZ MD, ANNOTATI ON/CHIDI DUM; Not Available Not Available Not Available glipizide 5 mg tablet 12/09 completed Not Available Not Available Not Available amoxicill in 875 mg-potass ium clavulana te 125 mg tablet TAKE 1 TABLET BY MOUTH TWICE A DAY 12/20 completed Not Available Not Available Not Available oxycodone 5 mg tablet TAKE 1 TABLET BY MOUTH EVERY 4 HOURS NEEDED FOR MODERATE PAIN. 12/20 completed Not Available Not Available Not Available Adult Low Dose Aspirin 81 mg tablet,de layed release Take 1 tablet every day by oral route as directed . active Not Available Not Available No t Available cyclobenz aprine 5 mg tablet Take 1 tablet 3 times a day by oral route as needed for 10 days. 12/08 completed Not Available Not Available Not Available ciproflox acin 0.3 %-dexamet hasone 0.1 % ear drops,priti pension INSTILL 4 DROPS INTO RIGHT EAR 2 TIMES A DAY FOR 7 DAYS 04/10 completed Not Available Not Available Not Available memantine 10 mg tablet Take 1 tablet twice a day by oral route for 90 days, for memory problems . 2024 active Not Available Not Available Not Avai lable metformin ER 500 mg tablet,ex tended release 24hr (osmotic) TWO TIMES DAILY 09/02 completed RECORDED 09/02/19 14 3:17PM BY ASIM ALCARAZ MD, ANNOTATI ON/CHIDI DUM; Not Available Not Available Not Available eszopiclo ne 1 mg tablet TAKE 1 TABLET BY MOUTH EVERYDAY AT BEDTIME 08/04 completed Not Available Not Available Not Available fenofibra te 160 mg tablet Take 1 tablet every day by oral route. 06/10 completed Not Available Not Available Not Available Accu-Chek Multiclix Lancet Take 1 each twice a day by miscell. route for 90 days. 07/12 completed Not Available Not Available Not Available Aspirin EC DAILY 09/30 completed RECORDED 11/09/19 14 11:34AM BY LAZARUS BONDS I, OFFICE VISIT; Not Available Not Available Not Available Fleet Enema 1 BY RECTUM NEEDED FOR CONSTIPA TION active Not Available Not Available No t Available multivita min 1 TABLET DAILY active Not Available Not Available No t Available valsartan 320 mg-hydroc hlorothia zide 25 mg tablet TAKE 1 TABLET BY MOUTH EVERY DAY DIRECTED 08/25 completed low sodium Not Available Not Available Not Available ProAir HFA 90 mcg/actua tion aerosol inhaler Inhale 2 puffs every 4-6 hours by inhalati on route as needed. 09/01 completed Not Available Not Available Not Available metformin ER 500 mg 24 hr tablet,ex tended release (gastric retention ) Take 1 tablet every day by oral route at dinner for 90 days. 01/07 completed Not Available Not Available Not Available fenofibra te nanocryst allized 145 mg tablet DAILY active RECORDED 02/20/20 11 2:07PM BY ASIM ALCARAZ MD, ANNOTATI ON/ADDEN DUM; Not Available Not Available Not Available sitaglipt in phosphate 25 mg tablet DAILY 2013 active RECORDED 09/05/19 14 4:36PM BY ASIM ALCARAZ MD, ANNOTATI ON/ADDEN DUM; Not Available Not Available Not Available fenofibra te 40 mg tablet 01/07 completed Not Available Not Available Not Available folic acid-vit B6-vit B12 2.2 mg-25 mg-1.3 mg tablet DAILY active RECORDED 10/12/19 12 11:29AM BY ASIM ALCARAZ MD, ANNOTATI ON/ADDEN DUM; Not Available Not Available Not Available glipizide ER 5 mg 24 hr tablet,ex tended release Take 4 tablets every day by oral route as directed . 09/01 completed Not Available Not Available Not Available Gavilyte- C 240 gram-22.7 2 gram-6.72 gram-5.84 gram oral solution TAKE 8 OUNCES BY MOUTH DIRECTED 08/18 completed Not Available Not Available Not Available doxepin 3 mg tablet TAKE 1 TABLET BY MOUTH EVERY DAY 04/10 completed Not Available Not Available Not Available Brilinta 90 mg tablet Take 1 tablet twice a day by oral route. 05/04 completed Not Available Not Available Not Available metronida zole-skin cleanser #23 0.75 % top,clean ser and cream kit 12/31 completed Not Available Not Available Not Available Accu-Chek FastClix Lancing Device Take 1 each every day by miscell. route for 90 days. 07/12 completed Not Available Not Available Not Available OneTouch Verio test strips USE TO TEST BLOOD GLUCOSE DAILY active Not Available Not Available No t Available OneTouch Verio IQ Meter kit Take 1 kit every day by miscell. route. 10/08 completed Not Available Not Available Not Available Farxiga 5 mg tablet Take 1 tablet every day by oral route. active Not Available Not Available No t Available OneTouch Verio IQ Meter as directed 10/08 completed Not Available Not Available Not Available Fluzone High-Dose (PF) 180 mcg/0.5 mL intramusc ular syringe active Not Available Not Available Not Available Jardiance 10 mg tablet TAKE 1 TABLET BY MOUTH EVERY DAY 08/25 completed Not Available Not Available Not Available Belsomra 10 mg tablet Take 1 tablet every day by oral route at bedtime for 30 days. 08/07 completed Not Available Not Available Not Available Fluzone High-Dose (PF) 180 mcg/0.5 mL intramusc ular syringe 04/15 completed Not Available Not Available Not Available Fluzone High-Dose (PF) 180 mcg/0.5 mL intramusc ular syringe 04/15 completed Not Available Not Available Not Available Fluad 65yr up(PF)45 mcg(15 mcgx3)/0. 5 mL intramusc ular syringe 09/01 completed Not Available Not Available Not Available Shingrix (PF) 50 mcg/0.5 mL intramusc ular suspensio n, kit 04/24 completed Not Available Not Available Not Available Fluad 65yr up(PF)45 mcg(15 mcgx3)/0. 5 mL intramusc ular syringe 05/04 completed Not Available Not Available Not Available OneTouch Delica Plus Lancet 33 gauge active Not Available Not Available Not Available OneTouch Delica Plus Lancing Device kit Take 1 kit every day by miscell. route for 21 days. 05/29 completed Not Available Not Available Not Available OneTouch Delica Plus Lancet 30 gauge USE TO TEST BLOOD SUGAR TWICE DAILY 05/29 completed Not Available Not Available Not Available lidocaine 5 % topical patch-adh esive silicone combo pack 01/07 completed Not Available Not Available Not Available Fluzone High-Dose (PF) 180 mcg/0.5 mL intramusc ular syringe inject 0.5 millilit ers intramus cularly 04/24 completed Not Available Not Available Not Available Fluad Quad (65yr up)(PF) 60 mcg (15 mcg x 4)/0.5mL IM syringe ADM 0.5ML IM UTD 04/24 completed Not Available Not Available Not Available lidocaine 5 % topical patch-reggie stic bandage, combinati on package 12/31 completed Not Available Not Available Not Available Onetouch Delica Safety Lancet USE TO CHECK BOOD GLUCOSE DAILY active Not Available Not Available No t Available Flowflex COVID-19 Antigen Home Test kit USE DIRECTED 07/29 completed Not Available Not Available Not Available Paxlovid 150 mg-100 mg tablets in a dose pack (Moderate Renal Dose) TAKE 2 TABLETS BY MOUTH TWICE A DAY FOR 5 DAYS 07/29 completed Not Available Not Available Not Available Vitals Date Recorded Body height Body mass index (BMI) Body weight Heart rate Oxygen saturation Oxygen saturation in Arterial blood by Pulse oximetry Body temperature Systolic And Diastolic Provider Name and Address Organization Details Last Updated DateTime 5 175.26 cm 23.2 kg/m2 53413 g 88 /min 98 % 98 % 97.2 [degF] 138/82 mm[Hg] Radha powers MA [facility] 5 11:20:33 Date Recorded Body height Body mass index (BMI) Body weight Heart rate Oxygen saturation Oxygen saturation in Arterial blood by Pulse oximetry Body temperature Systolic And Diastolic Provider Name and Address Organization Details Last Updated DateTime 5 175.26 cm 22.4 kg/m2 73125.0 4 g 53 /min 99 % 99 % 97.7 [degF] 137/58 mm[Hg] No Calvillo MA [facility] 5 11:11:08 Date Recorded Body height Body mass index (BMI) Body weight Heart rate Oxygen saturation Oxygen saturation in Arterial blood by Pulse oximetry Body temperature Systolic And Diastolic Provider Name and Address Organization Details Last Updated DateTime 5 175.26 cm 21.9 kg/m2 17827.6 7 g 66 /min 96 % 96 % 97.6 [degF] 124/66 mm[Hg] No Calvillo MA [facility] 5 11:33:55 Date Recorded Body height Body mass index (BMI) Body weight Heart rate Oxygen saturation Oxygen saturation in Arterial blood by Pulse oximetry Body temperature Systolic And Diastolic Provider Name and Address Organization Details Last Updated DateTime 4 175.26 cm 21.4 kg/m2 61677.8 9 g 70 /min 99 % 99 % 97.9 [degF] 161/73 mm[Hg] Katerine Sandoval LPN [facility] 4 10:55:26 Social History Question Answer Notes LastModified by Organizat ion Details LastModified Time Tobacco Smoking Status Former Smoker not since 1974 NELIDA Mark, [facility] 09/02/2022 09:17:56 Do You Have An Advance Directive? Yes Information not available 06/29/2023 Animal Exposure? Yes Informat ion not available 06/29/2023 Do You Wear A Helmet When Biking? Yes Information not available 06/29/2023 Is Blood Transfusion Acceptable In An Emergency? Yes [id number] Information not available 05/28/2020 What Is Your Level Of Caffeine Consumption? Moderate Two 6 Oz Cups Coffee Daily Information not available 01/13/2024 How Much Tobacco Do You Chew? None [id number] Information not available 05/28/2020 What Type Of Diet Are You Following? DIABETIC [id number] Information not available 05/28/2020 Which Illicit Or Recreational Drugs Have You Used? None [id number] Information not available 05/28/2020 Education 12 Information no t available 06/29/2023 Have There Been Any Changes To Your Family Or Social Situation? No Information not available 06/29/2023 Are There Any Guns Present In Your Home? Yes Information not available 06/29/2023 What Is Your Home Situation? Both Parents Information not available 06/29/2023 Legally Blind In One Or Both Eyes? No Information not available 06/29/2023 Live Alone Or With Others? With Others (Nila) Information not available 06/29/2023 Do You Take Precautions To Prevent Distracted Driving? Yes [email or web address] [email or web address] Information not available 10/16/2015 How Often Do You Need To Have Someone Help You When You Read Instructions, Pamphlets, Or Other Written Material From Your Doctor Or Pharmacy? Never [email or web address] Information not available 10/16/2015 Have You Served In The ? No [employer]ico Mediaultz[employer] Information not available 10/12/2016 Have You Or Anyone In Your Household Had Any Of The Following Symptoms In The Last 14 Days: Sore Throat, Cough, Chills, Body Aches For Unknown Reasons, Shortness Of Breath For Unknown Reasons, Loss Of Smell, Loss Of Taste, Fever At Or Greater Than 100 Degrees Fahrenheit? No Kiwii Capitalchultzki Information not available 01/23/2020 Are You Or Anyone In Your Household A Health Care Provider Or Emergency Responder? No [employer] Information not available 01/23/2020 To The Best Of Your Knowledge Have You Been In Close Proximity To Any Individual Who Tested Positive For COVID-19? No [employer] Information not available 01/23/2020 Have You Recently Traveled To A COVID-19 High Risk Area Or Gathering In The Last 10 Days? No abolcun Information not available 08/13/2020 Marital Status Informatio n not available 06/29/2023 What Was The Date Of Your Most Recent Tobacco Screening? 08/25/2024 [email or web address] Information not available 08/25/2024 Total Number Of Stairs In Home 2 Information not available 06/29/2023 How Many Children Do You Have? 2 1 Son And 1 Daughter; 1 Grandchild; Daughter Of Cancer 2018 [id number] Information not available 05/28/2020 Difficulty Reading? No Information not available 06/29/2023 Seat Belts Used Routinely Yes Information not available 06/29/2023 Are You Sexually Active? No (Nila) Information not available 01/13/2024 Smoke Alarm In Home Yes Information not available 06/29/2023 Are You Passively Exposed To Smoke? No [email or web address] Information not available 10/16/2015 How Much Tobacco Do You Smoke? No [id number] Information not available 05/28/2020 What Types Of Sporting Activities Do You Participate In? Fishing&bik ing Information not available 06/29/2023 Do You Use Sunscreen Routinely? Yes [id number] Information not available 05/28/2020 Do You Have Difficulty Walking Or Climbing Stairs? No Information not available 06/29/2023 Sex: Unknown Functional Status Question Answer Note LastModified by Organizat ion Details LastModified Time Do you use any illicit or recreational drugs? No Information not available 06/29/2023 Do you or have you ever used any other forms of tobacco or nicotine? No Information not available 06/29/2023 What is your level of alcohol consumption? None one drink a year [email or web address] Information not available 09/02/2022 Do you or have you ever used smokeless tobacco? Never used smokeless tobacco [id number] Information not available 05/28/2020 Are you currently employed? No retired Information not available 12/02/2023 Difficulty driving at night? No Information not available 06/29/2023 Are you able to walk independently without assistance or assistive devices? YESWOREST Information not available 06/29/2023 Are you able to care for yourself independently? 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 No Information not available 06/29/2023 Do you or have you ever used e-cigarettes or vape? Never used electronic cigarettes Information not available 06/29/2023 What is your exercise level? Occasional [id number] Information not available 05/28/2020 Mental Status Question Answer Note LastModified by Organization D etails LastModified Time Do you have difficulty concentrating, remembering or making decisions? No Information no t available 06/29/2023 Family History Relationship Description Onset Age of this Age Resolved Age Notes LastModified by Organization Details LastModified Time Mother Diabetes mellitus Juan Diego koenig Not available 10/15 11:03:59 Brother Diabetes mellitus jason Not available 12/25 11:43:20 Medical History Condition Response Coronary Artery Disease N Gout N Other N Kidney Stones N Blood Diseases N Hyperthyroidism N Breast Cancer N Hypothyroidism N Depression N COPD N Lung Disease N Defects or Inherited Disease N Anesthesia Complications N Headaches/Migraines N Varicose Veins N Anxiety Disorder N Obesity N Vision or Eye Problems Y Arthritis Y Head Injury/Concussion N Infertility N Polyps N Congenital Anomalies N Acid Reflux (GERD) N Cancer Y Stroke N ADHD N Endometriosis N High Cholesterol Y Liver Disease N Fibromyalgia N Kidney Disease N Heart Problems N Ear or Hearing Problems N Hospitalizations Y Thyroid Problems N GI Problems N Acne N Eating Disorder N Skin Problems N Anemia N Constipation N Bladder Problems N Mental Illness N Diabetes Y Ovarian Cancer N Blood Transfusions N Seizures/Epilepsy N Tuberculosis N AIDS/HIV N Congestive Heart Failure (CHF) N Eczema N Abuse/Domestic Violence N Diverticulitis Y Asthma N Allergies N Reflux/GERD N Hepatitis N Pulmonary Embolism N Hypertension Y Chicken Pox N Autism Spectrum Disorder (ASD) N Osteoporosis N Immunizations Vaccine Type Date Status Note Provider Nam e and Address Organization Details Recorded Time zoster live 4 completed NELIDA Mena [facility] 12/02/2022 09:16:27 Influenza, high-dose, trivalent, PF 4 completed NELIDA Mena [facility] 12/02/2022 09:16:27 Influenza, high-dose, trivalent, PF 6 completed NELIDA Mena [facility] 12/02/2022 09:16:27 [facility]:16:27 Influenza, high-dose, trivalent, PF 9 completed NELIDA Velazquez [facility] 12/20/2024 11:03:30 zoster recombinant 9 completed NELIDA Velazquez, [facility] 12/20/2024 11:03:30 COVID-19, mRNA, LNP-S, PF, 30 mcg/0.3 mL dose 1 completed NELIDA Mena, [facility] 12/02/2022 09:16:27 COVID-19, mRNA, LNP-S, PF, 30 mcg/0.3 mL dose 1 completed NELIDA Mena, [facility] 12/02/2022 09:16:27 COVID-19, mRNA, LNP-S, PF, 30 mcg/0.3 mL dose 1 completed NELIDA Mena, [facility] 12/02/2022 09:16:27 Influenza, split virus, trivalent, PF 0 completed NELIDA Mena, [facility] 12/02/2022 09:16:27 zoster recombinant 9 completed NELIDA Velazquez, [facility] 12/20/2024 11:03:30 Influenza, adjuvanted, trivalent, PF 8 completed NELIDA Mena, [facility] 12/02/2022 09:16:26 Influenza, adjuvanted, trivalent, PF 7 completed NELIDA Mena, [facility] 12/02/2022 09:16:26 Influenza, high-dose, quadrivalent, PF 1 completed NELIDA Mena, [facility] 12/02/2022 09:16:27 Influenza, split virus, trivalent, preservative 0 completed NELIDA Mena, [facility] 12/02/2022 09:16:27 Influenza, high-dose, trivalent, PF 5 completed NELIDA Mena, [facility] 12/02/2022 09:16:27 COVID-19, mRNA, LNP-S, PF, 30 mcg/0.3 mL dose, mayito-sucrose 2 completed Andria Hammer MA null, [facility] 12/02/2022 09:16:27 Pneumococcal conjugate PCV 13 5 completed No Calvillo MA null, [facility] 12/20/2024 11:03:30 Pneumococcal conjugate PCV 13 5 completed No Calvillo MA null, [facility] 12/20/2024 11:03:30 COVID-19, mRNA, LNP-S, bivalent, PF, 30 mcg/0.3 mL dose 2 completed Andria Hammer MA null, [facility] 12/02/2022 09:16:27 Influenza, adjuvanted, quadrivalent, PF 2 completed NELIDA Mena, [facility] 12/02/2022 09:16:27 Influenza, adjuvanted, quadrivalent, PF 3 completed Rahel driscoll, [facility] 06/29/2023 11:25:54 RSV, bivalent, protein subunit RSVpreF, diluent reconstituted, 0.5 mL, PF 3 completed Rahel driscoll, [facility] 06/29/2023 11:25:54 COVID-19, mRNA, LNP-S, PF, mayito-sucrose, 30 mcg/0.3 mL 3 completed Rahel Nolen null, [facility] 06/29/2023 11:25:54 zoster live 9 completed NELIDA Velazquez, [facility] 12/20/2024 11:03:30 Influenza, high-dose, trivalent, PF 4 completed Carmen Ovalle null, [facility] 04/20/2024 13:24:45 zoster recombinant 9 completed NELIDA Velazquez, [facility] 12/20/2024 11:03:30 COVID-19, mRNA, LNP-S, PF, mayito-sucrose, 30 mcg/0.3 mL 4 completed NELIDA Noel, [facility] 08/25/2024 11:15:13 Influenza, split virus, trivalent, preservative 1 completed NELIDA Mena, [facility] 12/02/2022 09:16:27 Influenza, split virus, trivalent, preservative 2 completed NELIDA Mena, [facility] 12/02/2022 09:16:27 Tdap 3 completed NELIDA Mena, [facility] 12/02/2022 09:16:27 pneumococcal polysaccharide PPV23 3 completed NELIDA Mena, [facility] 12/02/2022 09:16:27 Past Encounters Encounter ID Performer Location Encounter Start Date Encounter Closed Date Diagnosis/Indication Diagnosis SNOMED-CT Code Diagnosis ICD10 Code Diagnosis IMO Codes Diagnosis Note [id number] [facility] [address] [facility],[address] [place] [address] 02/19/2011 00:00:00 [id number] auto[employer]Comm erce [address] [facility],[address] [place] [address] 04/16/2011 00:00:00 [id number] auto[employer] erce [address] [facility],[address] [place] [address] 07/16/2011 00:00:00 [id number] auto[employer]Comm erce [address] [facility],[address] [place] [address] 10/12/2011 00:00:00 [id number] auto[employer] erce [address] [facility],[address] [facility] [place] [address] 01/18/2012 00:00:00 [id number] [address] [place] [address] 04/21/2012 00:00:00 [id number] [address] [address] [place] [address] 07/28/2012 00:00:00 [id number] [address] [place] [address] 08/13/2012 00:00:00 [id number] [address] [address] [place] [address] 11/21/2012 00:00:00 [id number] [address] [place] [address] 12/26/2012 00:00:00 [id number] [facility] [facility]ce [address] [place] [address] 02/01/2013 00:00:00 [id number] [address] erce [address] [place] [address] 02/20/2013 00:00:00 [id number] [address]Comm [address] [place] [address] 02/22/2013 00:00:00 [id number] auto[address]Comm erce [address] [place] [address] 02/24/2013 00:00:00 [id number] [address] [address] [place] [address] 02/27/2013 00:00:00 [id number] auto[employer]Comm erce [address] [place] [address] 03/04/2013 00:00:00 [id number] auto[address]Comm erce [address] [place] [address] 03/06/2013 00:00:00 [id number] auto[address]Comm erce [address] [place] [address] 03/13/2013 00:00:00 [id number] autoEComm erce [address] [facility],[address] [place] [address] 03/20/2013 00:00:00 [id number] autoEComm erce [address] [place],[address] [place] [address] 03/29/2013 00:00:00 [id number] autoEComm erce [address] [facility],[address] [place], [place] [address] 05/03/2013 00:00:00 [id number] autoEComm erce [address] [facility],[address] [place] [address] 08/09/2013 00:00:00 [id number] autoEComm erce [address] [facility],[address] [place] [address] 11/08/2013 00:00:00 [id number] Asim Pelaez MD Main Office [address] [address] [place], [place] [address] 03/21/2014 10:27:48 03/21/2014 11:34:56 Renal disorder due to type 2 diabetes mellitus [id number] excellent control; last A1C was 5.9. Low back pain 735354053 he will try exercises at home and will discuss this further with Dr Chao. Sounds like OA since no radiation and worse in am and better as day goes on. Rheumatoid arthritis [id number] followed by Dr Chao; on methotrexa te. Chronic ki dney disease stage 3 892255120 followed by renal. Creatinine stable at 1.7 [id number] Asim Pelaez MD Main Office [address] [address] [place], [place] [address] 06/27/2014 10:32:40 06/27/2014 11:33:48 Renal disorder due to type 2 diabetes mellitus [id number] excellent control; last A1C was 5.9. Brewer's esophagus [id number] Rheumatoid arthritis 63199055 followed by Dr Chao; on methotrexa te. Chronic ki dney disease stage 3 720675530 followed by renal. Creatinine stable at 1.7 [id number] Asim Pelaez MD Main Office [address] [address] [place] [address] 10/03/2014 09:18:19 10/03/2014 10:21:00 Renal disorder due to type 2 diabetes mellitus 515185014 excellent control; last A1C was 5.9. Not due for diabetes lab tests until 3 months from now. Adult [facility] th examination [id number] Essential hypertension 57937102 generally runs well at other doctor offices. He will monitor and call if the systolic remains above 140. Rheumatoid arthritis 46864248 followed by Dr Chao; on methotrexa te. His last wbc was low so Dr Chao lowered his methotrexa te and will recheck his CBC next week. [id number] Asim Pelaez MD Main Office [address] [facility] [address] [facility] [place] [address] 01/02/2015 08:49:04 01/02/2015 10:06:51 Renal disorder due to type 2 diabetes mellitus 214449278 good control on reduced dose. His A1C has gone up a little. If it continues to go up we will adjust his meds at his next f/u. Low back pain 097172098 He was advised to try aleve for the pain and he will discuss this further with Dr Chao next week when he sees him for his RA. He may benefit from PT and an injection. He will call for an appointmen t with a back specialist (Dr Mathias) if Dr Chao can't help him. Rheumatoid arthritis 34788451 followed by Dr Chao; on methotrexa te. . Chronic ki dney disease stage 3 244018386 followed by renal. Creatinine stable at 1.7 [id number] Asim Pelaez MD Main Office [address] [facility] [address] [facility] [place] [address] 03/27/2015 12:36:18 03/27/2015 13:28:43 Renal disorder due to type 2 diabetes mellitus 243833782 good control on reduced dose. His A1C has gone up a little. If it continues to go up we will adjust his meds at his next f/u. Administra tion of pneumococcal vaccine [id number] Difficulty finding words [id number] this has been noted by his and patient agrees; sometimes takes a few seconds for a word to come to him. No memory concerns. No expressive or receptive aphasia. A cognitive screening was done which does not show any deficits. Malignant neoplasm of prostate [id number] was followed by Dr Ace who is leaving his practice; we will follow his PSA here. Brewer's esophagus 261441848 followed by GI; UTD with EGD. [id number] Asim Pelaez MD Main Office [address] [address] 07/03/2015 09:07:38 07/03/2015 09:54:41 Renal disorder due to type 2 diabetes mellitus 613704581 E11.29 good control on reduced dose. His A1C has gone up a little. If it continues to go up we will adjust his meds at his next f/u. Nocturia 272841052 R35.1 Chronic ki dney disease stage 3 201415851 N18.3 followed by renal. Creatinine stable at 1.7 Pure hypercholesterolemia 673622699 E78.0 [id number] Asim Pelaez MD Main Office [address] [address] 10/16/2015 10:46:45 10/16/2015 11:59:49 Essential hypertension 44717639 I10 good control. Type 2 sarah betes mellitus 59913637 E11.9 Adult heal th examination 209618486 Z00.00 History of malignant neoplasm of prostate 697093497 Z85.46 Pain in toe 141146328 M7 9.676 Chronic ki dney disease stage 3 797660101 N18.3 followed by renal. Creatinine stable at 1.7 [id number] Asim Pelaez MD Main Office [address] [address] 01/20/2016 11:20:19 01/20/2016 12:06:45 Type 2 diabetes mellitus 97453185 E11.9 His A1C is creeping up. No changes since there should be an improvemen t since he stopped the prednisone . He will also try to increase his exercise. Renal diso rder due to type 2 diabetes mellitus 580677289 E11.29 Low back pain 999527981 M54.5 He may benefit from PT and an injection. He will make an appointmen t with [facility]; a referral was put in. Rheumatoid arthritis [address] Chao; on methotrexa te. His prednisone was stopped a couple of weeks ago and his methotrexa te was increased. His hands are mostly effected. [id number] Asim Pelaez MD Main Office [address] [facility] [address] [place] [place] [address] 04/15/2016 10:00:08 04/15/2016 11:29:05 Renal disorder due to type 2 diabetes mellitus 637500147 E11.29 A1C still creeping up and now at 7.2. We will continue with current mgmt. Low back pain 963630665 M54.5 Changes noted at L5 and awaiting a bone scan. I spoke to ONEIL Antonio at [facility] and she is scheduling the bone scan. 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 It is unclear why this improved since his diet, weight and activity level has stayed the same. We will continue with current mgmt. Chronic ki dney disease stage 3 692848679 N18.3 followed by renal. Creatinine stable at 1.9. Has been around the same level for at least 3 years. Rheumatoid arthritis [address] Chao; on methotrexa te. His hands are mostly effected. Hyperlipidemia 75179142 E78.5 Good control; LDL at goal; continue current mgmt. Low back pain 047123276 M54.5 Much improved since getting an injection 3 weeks ago. [id number] Albert Bryatn MD Main Office [address] [facility] [address] [facility] [place] [address] 09/26/2016 09:54:33 09/26/2016 11:47:04 Acute otitis externa 11406520 H60.502 GIven history and comorbidit ies there is significan t potential for resistant organisms, therefore culture was done. Empiric treatment with cipro for pseudomona l coverage. If persistent /worse or new symptoms develop might need additional therapy. Pt advised to call with any problems. Impacted c erumen in right ear [id number] 535550 H61.21 Pt will follow up with ENT for disimpacti on. [id number] Jan Tong PA-C Main Office [address] [facility] [address] [place] [address] 09/30/2016 09:41:43 09/30/2016 11:09:14 Otitis externa 0837918 H60.92 finish abx drops as dir Cough 60283264 R05 checked [employer]PA[employer] DIES - no abuse Upper resp iratory infection 30016309 J06.9 Impacted cerumen 3182428 6 H61.21 mod - see below - trial c debrox - if no better is already scheduled to see ent Pneumonia 724532682 J18. 9 ? early pna - will empiricall y rx [id number] Asim Pelaez MD Main Office [address] [facility] [address] [place] [address] 10/12/2016 10:04:32 10/12/2016 11:50:07 Adult health examination 865659479 Z00.00 Dyspnea 111280515 R06.00 Unclear etiology for this. He may have had wheezing from a respirator y infection. Doubt COPD as diagnosed as an inpatient. He has no h/o cough or TERRAZAS and his spirometry was normal although with a low normal Fev1/FVC (between 7- and 79%). Will refer him to pulmonary for further evaluation Nocturia 756121449 R35.1 Renal diso rder due to type 2 diabetes mellitus 998463731 E11.29 His A1C increased to 7.5. He feels that much of this increase was because of prednisone . We will continue with current mgmt. Chronic ki dney disease stage 3 058399334 N18.3 followed by renal. Creatinine stable and the last level done while he was hospitaliz ed and after having had received fluids was 1.3. It had been around 1.9 for at least 3 years. Rheumatoid arthritis [address] Chao; on methotrexa te. His hands are mostly effected. Hypertensi ve renal disease 80653879 I12.9 Good control; will continue current mgmt. [id number] Asim Pelaez MD Main Office [address] [place] [address] 01/25/2017 11:01:13 01/25/2017 11:38:22 Renal disorder due to type 2 diabetes mellitus 059767046 E11.29 His A1C has come down from 7.5 to 6.6 since stopping the prednisone . No changes need to be made at this time. Dyspnea on exertion 6084 5006 R06.09 He feels that this may be secondary to dectd blair but we will get a stress test given his symptoms and h/o diabetes. [id number] Bebeto mcclelland MD Main Office [address] [address] 02/26/2017 13:28:50 02/26/2017 14:14:08 Sinusitis 78957372 J32.9 Rhinitis 58558464 J00 Cough 42800209 R05 [id number] Albert Bryant MD Main Office [address] [place] [address] 04/15/2017 14:12:27 04/15/2017 15:20:28 Chronic recurrent sinusitis 151482717 J32.9 ? if allergy related. Will resume daily antihistam ine for now. Respiratory crackles 484 41214 R09.89 Will re-refer to pulm. Needs eval to rule out MTX toxicity as a cause. Pneumonia 249853134 J18. 9 Will check CXR and add axithro if infiltrate present. Otherwise will cover for for both sinusitis/ PNA. Cough 23001167 R05 [id number] Asim Pelaez MD Main Office [address] [address] 05/10/2017 11:11:18 05/10/2017 12:04:55 Renal disorder due to type 2 diabetes mellitus 825235794 E11.22 good control on reduced dose. His A1C has remained steady at 6.6. No change in mgmt. Dyspnea 796790303 R06.00 Unclear etiology for this. Doubt COPD as diagnosed as an inpatient. He has no h/o cough or TERRAZAS and his spirometry was normal although with a low normal Fev1/FVC (between 7- and 79%). he has an appointmen t with pulmonary in a couple of days. We will also make an appointmen t with cardiology for further evaluation . Low back pain 443532103 M54.5 Much improved since getting an injection. He will call [facility] for a f/u appointmen t. Chronic ki dney disease stage 3 376891824 N18.3 followed by renal. Creatinine stable at 1.7 Major depr essive disorder 874838155 F32.0 We discussed treatment and he wants to hold off on meds; he will call if he changes his mind. [id number] Asim Pelaez MD Main Office [address] [facility] [address] [place] [place] [address] 06/10/2017 13:14:51 06/10/2017 14:18:02 Thyroid nodule 532329755 E04.1 incidental finding on recent chest CT Stable angina 929942896 I20.8 He will be starting cardiac rehab at [facility] Coronary arteriosclerosis 22901151 I25.10 had stent placement by Dr Killian [id number] Asim Pelaez MD Main Office [address] [facility] [address] [place] [address] 09/01/2017 08:40:45 09/01/2017 09:38:28 Renal disorder due to type 2 diabetes mellitus 070534139 E11.22 good control on reduced dose. His A1C has remained steady at 6.6. No change in mgmt. Rheumatoid arthritis [address] Chao; on methotrexa te. His hands are mostly effected. Stable angina 391060719 I20.8 He will be starting cardiac rehab at [facility] Insomnia 740077471 G47.0 0 Low back pain 328407719 M54.5 Much improved since getting an injection. He will call [facility] for a f/u appointmen t. Eczema 83779952 L30.9 Chronic ki dney disease stage 3 987072935 N18.3 [id number] Asim Pelaez MD Main Office [address] [facility] [place] [address] 12/08/2017 10:46:04 12/08/2017 12:08:52 Adult health examination 391740448 Z00.00 UTD with colonscopy and due again in 2020. Renal diso rder due to type 2 diabetes mellitus 972294619 E11.22 good control on reduced dose. His A1C has remained steady at 6.6. No change in mgmt. Chronic ki dney disease stage 3 444359302 N18.3 [id number] Asim Pelaez MD Main Office [address] [facility] [address] [place] [address] 03/07/2018 10:31:35 03/07/2018 11:38:11 Renal disorder due to type 2 diabetes mellitus 453841981 E11.22 His A1C has come down a little to 7.3. He feels that it is not lower because he has been receiving steroid joint injections . No changes at this time. Insomnia 607500739 G47.0 0 Trouble staying asleep. Will try tylenol pm or melatonin. Chronic ki dney disease stage 3 859574459 N18.3 Followed by renal Rheumatoid arthritis [address] Chao; on methotrexa te. His hands are mostly effected. [id number] Asim Pelaez MD Main Office [address] [facility] [address] [place] [address] 05/04/2018 14:10:49 05/04/2018 14:41:30 Pre-surgery evaluation 467157364 Z01.818 Renal diso rder due to type 2 diabetes mellitus 505320557 E11.22 His A1C has come down a little to 7.3. He feels that it is not lower because he has been receiving steroid joint injections . No changes at this time. 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 Will try tylenol pm or melatonin. Rheumatoid arthritis [address] Chao; on methotrexa te. His hands are mostly effected. [id number] Asim Pelaez MD Main Office [address] [facility] [address] [place] [address] 06/27/2018 08:54:16 06/27/2018 09:30:35 Renal disorder due to type 2 diabetes mellitus 704879529 E11.22 His A1C has come down a little to 7.1. No changes at this time. Major depr essive disorder 140524826 F32.0 We discussed treatment and he wants to hold off on meds; he will call if he changes his mind. Spinal andrez nosis of lumbar region 14344522 M48.[address] Coreas a couple of months ago and has improved Hypertensi ve renal disease 34381750 I12.9 Good control; will continue current mgmt. Chronic ki dney disease stage 3 714657432 N18.3 [id number] Asim Pelaez MD Main Office [address] [facility] [address] [place] [address] 08/01/2018 13:15:16 08/01/2018 14:10:58 Edema 116861299 R60.9 Probable venous insufficie ncy although unusual that it came on so quickly. Doubt DVT since no calf tenderness . [id number] Asim Pelaez MD Main Office [address] [facility] [address] [place] [address] 08/08/2018 10:02:22 08/08/2018 11:57:11 Venous insufficiency of lower limb 337009909 I87.2 Doubt liver, kidney or cardiac etiologies for his edema. Improved with elevation and lasix. Has compressio n stockings at home which he will start using. [id number] Asim Pelaez MD Main Office [address] [facility] [address] [place] [address] 10/05/2018 12:35:05 10/05/2018 13:47:08 Neuropathy due to diabetes mellitus 399514235 E11.40 Rheumatoid arthritis [address] Chao; on methotrexa te. His hands are mostly effected. 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 Followed yearly in [place]. [id number] Asim Pelaez MD Main Office [address] [facility] [address] [place] [address] 01/20/2019 10:48:39 01/20/2019 12:13:06 Adult health examination 216571762 Z00.00 UTD with colonoscop y and due again in 2020. Major depr essive disorder 875639015 F32.0 We discussed treatment and he wants to hold off on meds; he will call if he changes his mind. He will make an appointmen t for counseling . Chronic ki dney disease stage 3 247625981 N18.3 Followed by renal. [id number] Asim Pelaez MD Main Office [address] [facility] [address] [place] [address] 04/24/2019 13:17:57 04/24/2019 14:14:08 Renal disorder due to type 2 diabetes mellitus 406043394 E11.22 His A1C has gone back up from 6.6 to 7.2. I will concentrat e on lifestyle changes. No changes in mgmt. Malignant melanoma of eye 595154897 C69.90 Switching his care from [place] to [facility]. Chronic ki dney disease stage 3 683810295 N18.3 Followed by renal. Rheumatoid arthritis [address] Chao; on methotrexa te. His hands are mostly effected. [id number] Asim Pleaez MD Main Office [address] [address] 07/12/2019 08:49:50 07/12/2019 10:01:16 Renal disorder due to type 2 diabetes mellitus 142445347 E11.22 His A1C has remained at 7.2. He will concentrat e on lifestyle changes. No changes in mgmt. Chronic ki dney disease stage 3 741645355 N18.3 Followed by renal. Coronary arteriosclerosis 85143881 I25.10 had stent placement by Dr Killian Hypertensi ve renal disease 01326015 I12.9 Good control; will continue current mgmt. [id number] Asim Pelaez MD Main Office [address] [address] 01/23/2020 09:17:48 01/23/2020 10:42:12 Adult health examination 091366654 Z00.00 UTD with colonoscop y and due again in 2020. Renal diso rder due to type 2 diabetes mellitus 361777082 E11.22 His A1C has come down to 7.0. He will concentrat e on lifestyle changes. No changes in mgmt. Fatigue 59566037 R53.83 No evidence for anemia Hypertensi ve renal disease 72091510 I12.9 Sometimes running low. He will decrease his amlodipine from 10 to 5 mg and follow his BP at home. Will call if his systolic goes above 130 consistent ly. Brewer's esophagus 3029 03964 K22.70 followed by GI; due for an EGD. Will look into getting it done at the same time as his colonoscop y. He needs a new GI doc since he used to go to [facility]. Rheumatoid arthritis [address] Chao; on methotrexa te. His hands are mostly effected. Chronic ki dney disease stage 3 747617675 N18.3 Followed by renal. Stable angina 830351972 I20.8 followed by cardiology Major depr essive disorder 375807616 F32.0 This is currently in remission. [id number] Asim Pelaez MD Main Office [address] [place] [address] 04/24/2020 09:51:33 04/24/2020 10:36:32 Renal disorder due to type 2 diabetes mellitus 607647288 E11.22 His A1C increased to 7.4. He will concentrat e on lifestyle changes. No changes in mgmt. Hypertensi ve renal disease 20077795 I12.9 Decreased his amlodipine from 10 to 5 mg and BP running well. Edema in ankles has improved. Chronic ki dney disease stage 3 856358523 N18.3 Followed by renal. Coronary arteriosclerosis 18264517 I25.10 had stent placement by Dr Killian Insomnia 841846069 G47.0 0 Trouble staying asleep. Will try ambien. Malignant melanoma of eye 332823512 C69.90 Followed at [facility]. [id number] Asim Pelaez MD Main Office [address] [facility] [address] [place] [address] 08/13/2020 09:58:20 08/13/2020 10:44:34 Renal disorder due to type 2 diabetes mellitus 359287594 E11.22 His A1C has improved to 6.8. He will continue to concentrat e on lifestyle changes. No changes in mgmt. He understand s that his sugars may increase because of prednisone he is taking for his finger pain from RA. Rheumatoid arthritis [address] Chao; on methotrexa te. His hands are mostly effected. Started prednisone 2.5 mg and will go back to bid since that is the dose which helps. He will monitor his sugars to be sure that they do not go too high. Stable angina 508651472 I20.8 followed by cardiology but hasn't had an appointmen t in almost a year. Malignant melanoma of eye 814587328 C69.90 Followed at [facility]. Chronic ki dney disease stage 3 124555542 N18.31 followed by renal. Creatinine stable at 1.7 Hypertensi ve renal disease 87246620 I12.9 Decreased his amlodipine from 10 to 5 mg and BP running well. Edema in ankles has improved. Essential hypertension 63884439 I10 good control. Hyperlipidemia 42235455 E78.5 Good control; LDL at goal; continue current mgmt. [id number] Geneva Jean MD Main Office [address] [facility] [address] [facility] [place] [address] 10/08/2020 10:21:31 10/08/2020 11:35:46 Transition of care 9377705062 105 Z75.8 Chart, medication reviewed, medication reconciled , general precaution s discussed, compliance advised. Completed nuclear medicine stress test requested. Chest discomfort 1881440 09 R07.89 I suspect the patient's chest pain that he was admitted for is unlikely due to a cardiac cause but more so costochond ritis as the pain was reproducib le on palpation. Patient is not a good candidate NSAID given hx of CKD; patient is already on prednisone , hydroxychl oroquine, methotrexa te this should provide some adequate coverage in addition I advised him to apply some warm compress. 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 Patient's previous EKG shows a QTC prolongati on of roughly around 480 and his risk is also increased as he is on hydroxychl oroquine.Moni casiano that he is clinically depressed the benefits outweigh the risk and the patient agreed. From research sertraline seems to have the least effect on QTC prolongati on and has been 0 reported incidence. Thus we will try sertraline he is to follow his PCP in one month where an ECG should be preformed to ensure QTc has not worsened.O nce he is stable at a dose sodium levels should be obtained due to risk of hyponatrem ia. If sleep improves I would consider removing zolpidem due to risk of falls in geriatric patient.He was also warn that there is possibilit y that SSRI can cause thought of suicide, if this were to occur he was told to seem immediate medical attention. At this time patient denies any suicidal or homicidal ideation, resources was provided.Lamar markus was also offered counseling service but refused noting that he had it in the past with no relief. Type 2 sarah betes mellitus 56810781 E11.9 As geriatric patients are more sensitive to antidiabet ic medication s such as sulfonylur ea it was decided between me and [facility] that we would switch his glipizide to Metformin 500 extended release daily as his A1c has been good at 6.8. Will also provide B12 vitamin to prevent any B12 deficiency associated with Metformin use. Prior to starting Metformin I calculate the patient's eGFR which is greater than 45, his eGFR to this date is 50 thus ok to start, but should be monitored. [id number] Asim Pelaez MD Main Office [address] [address] 10/22/2020 13:37:45 10/22/2020 14:32:25 Atypical chest pain 000034660 R07.89 He will make a f/u with cardiology . Costal chondritis 585642 04 M94.0 Advised heat, decreased use of right arm and tylenol prn. [id number] Asim Pelaez MD Main Office [address] [address] 11/12/2020 09:56:46 11/12/2020 10:43:32 Type 2 diabetes mellitus 24274219 E11.37X9 His A1C increased a little possibly from increased carbs. He will cut back on these. Increase his activity level. No changes in meds. Chronic ki dney disease stage 3 683304140 N18.31 followed by renal. Creatinine stable at 1.7 Hypertensi ve renal disease 55439980 I12.9 Decreased his amlodipine from 10 to 5 mg and BP running well. Edema in ankles has improved. Major depr essive disorder 246638801 F32.0 This is currently in remission. Insomnia 420525705 G47.0 0 Wants to decrease his ambien from 10 to 5 mg to avoid SE's. He has trouble falling asleep. [id number] Geneva Jean MD Main Office [address] [facility] [address] [facility] [place] [address] 01/08/2021 10:21:18 01/08/2021 11:21:34 Neuropathy due to diabetes mellitus 981566131 E11.40 continue gabapentin . see gas cutter at least once per year for foot care. Renal diso rder due to type 2 diabetes mellitus 740522194 E11.21 Uncontroll ed type I DM with renal and neurologic complicati ons with intoleranc e to metformin. WE will try jardiance at 10 mg daily if pt. can afford branded drug. Possible side effects discussed and pt. is advised to increase hydration with this medication . If edi to take it, we will meet again in 6-8 weeks and retest A1c. Pt. is advised to have bmp repat after 3 weeks on new medication . Chronic ki dney disease stage 3 204280058 N18.30 f/u with renal as scheduled. [id number] Asim Pelaez MD Main Office [address] [facility] [address] [facility] [place] [address] 02/13/2021 09:19:22 02/13/2021 10:32:34 Adult health examination 452250409 Z00.00 Due for a colonoscop y and possibly an EGD. Last seen by Dr Walls in 2015. He is UTD with immunizati ons including COVID. Inflammati on of sacroiliac joint 35680398 M46.1 He will try exercises at home and will make a PT appointmen t if it persists. Screening for malignant neoplasm of colon 694021916 Z12.11 Brewer's esophagus 3029 60604 K22.70 followed by GI; due for an EGD. Will look into getting it done at the same time as his colonoscop y. He needs a new GI doc since he used to go to [facility]. Chronic ki dney disease stage 3 004204695 N18.31 followed by renal. Creatinine stable at 1.7 Renal diso rder due to type 2 diabetes mellitus 353278053 E11.22 His A1C is at 7.5 and he is followed by [facility]. Unintentio nal weight loss 933743892 R63.4 Major depr essive disorder 511055799 F32.0 This is currently in remission. [id number] Rochelle Tong PA-C Main Office [address] [place] [address] 03/25/2021 10:48:38 03/25/2021 11:36:44 Renal disorder due to type 2 diabetes mellitus 826492572 E11.21 Diabetes in near target control with jardiance at 10 mg. PT.will continue working on diet and exercising . Repeat BMP in 3 m . Chronic ki dney disease stage 3 392097088 N18.30 f/u with renal as scheduled. [id number] Asim Pelaez MD Main Office [address] [facility] [address] [place] [place] [address] 08/18/2021 09:13:32 08/18/2021 10:04:46 Hypertensive renal disease 66213541 I12.9 Stable on current mgmt. No changes. Chronic ki dney disease stage 3 233235681 N18.30 followed by renal. Creatinine stable at 1.7 Renal diso rder due to type 2 diabetes mellitus 491383202 E11.21 His A1C is at 7.2. No changes in meds but we discussed cotinuing diet improvemen ts and exercise to improve his sugars. Stable angina 375212918 I20.8 followed by cardiology and seen there last month. Insomnia 500269650 G47.0 0 Able to fall asleep with ambien 5 mg but wakes after 4 hours. He will add melatonin and if not helpful we will look into long-actin g ambien. [id number] Asim Pelaez MD Main Office [address] [facility] [address] [place] [place] [address] 10/23/2021 10:43:06 10/23/2021 12:11:00 Neuropathy due to diabetes mellitus 836365449 E11.40 Insomnia 193282734 G47.0 0 He will hold his trazodone for now since most of his symptoms began after he started it. No new meds will be added at this time. Expressive language disorder 026147484 F80.1 Will start w/u and see him back in a few weeks. May need a referral to memory d/o clinic. [id number] Asim Pelaez MD Main Office [address] [facility] [address] [place] [address] 11/11/2021 11:19:25 11/11/2021 12:24:37 Insomnia 693489135 G47.00 His expressive aphasia improved after stopping the trazodone. We will try a low dose of lunesta and monitor his mental status. Major depr essive disorder 796237461 F32.0 This is currently in remission. Dysuria 58586812 R30.9 His urine culture is negative. Memory impairment 431790 006 R41.3 [id number] Geneva Jean MD Main Office [address] [facility] [address] [place] [address] 12/31/2021 14:22:21 12/31/2021 15:30:48 Left inguinal hernia 777087335 K40.90 Pt with left sided hernia, able to reduce but quite large, will do surgical referral [facility]. If he has any increased pain, n/v, fever or unable to get relief with laying down needs to go to the ED . Pt agrees with plan [id number] Asim Pelaez MD Main Office [address] [facility] [address] [place] [address] 02/19/2022 10:22:36 02/19/2022 11:36:57 Adult health examination 777933527 Z00.00 He had a colonoscop y done by Dr Terrell 07/15 and is due again in June 2024. He is UTD with immunizati ons including COVID. Memory impairment 339629 006 R41.[address] had a head [address] done November 2021 and an abnormal 6CIT done in the office today. Hyperlipidemia 95191304 E78.5 Good control; LDL at goal; continue current mgmt. History of malignant neoplasm of eye 0748742970 30759 Z85.840 Followed at [facility]. [id number] Asim Pelaez MD Main Office [address] [facility] [address] [place] [address] 06/11/2022 10:25:28 06/11/2022 11:18:31 Renal disorder due to type 2 diabetes mellitus 166950610 E11.21 His A1C is at goal at 6.9. No changes in meds but we discussed continuing diet improvemen ts and exercise to improve his sugars. Hypertensi ve renal disease 60558202 I12.9 Stable on current mgmt. No changes. Rheumatoid arthritis [address] Chao; on methotrexa te. His hands are mostly effected. Started prednisone 2.5 mg and will go back to bid since that is the dose which helps. He will monitor his sugars to be sure that they do not go too high. Chronic ki dney disease stage 3B 046685064 N18.32 followed by renal. Creatinine stable at 1.7 [id number] Asim Pelaez MD Main Office [address] [facility] [address] [place] [address] 07/11/2022 09:04:26 07/11/2022 10:36:04 COVID-19 937564469 U07.1 He was instructed to hold his atorvastat in and prednisone while taking the paxlovid. He understand s the SE's and the need for isolation. [id number] Asim Pelaez MD Telehealt [address] [facility] [address] [place] [address] 07/29/2022 14:02:14 07/29/2022 15:56:36 Pneumonitis 973367556 J18.9 ? whether testing positive from initial infection vs rebound sx.Will tx for possible secondary bacterial infection. Hydration, rest, tea with honey, tylenol or ibuprofen as needed, continue robitussin as needed and tessalon as needed. Levofloxac in once daily x 7 days, if any pain in achilles or other tendons stop med and call us. Chronic ki dney disease stage 3B 685947359 N18.32 Renal diso rder due to type 2 diabetes mellitus 074431741 E11.21 Rheumatoid arthritis 698 11834 M06.9 Hypertensi ve renal disease 69146898 I12.9 [id number] Asim Pelaez MD Main Office [address] [facility] [address] [place] [address] 09/02/2022 09:08:36 09/02/2022 09:57:31 Neuropathy due to diabetes mellitus 850011821 E11.40 His neuropathy has remained stable. A1C increased a little to 7.2. No changes to mgmt and he will continue working on lifestyle changes. Chronic ki dney disease stage 3B 263382834 N18.32 followed by renal. Creatinine stable around 1.7 Hyperlipidemia 60041373 E78.5 Good control; last LDL at goal; recheck fasting lipid level and continue current mgmt. History of SARS-CoV-2 29 42323181 59491084 Z86.16 Took paxlovid and improved back to baseline. Insomnia 060170664 G47.0 9 His formulary has changed and we have referred him to sleep medicine to help with meds. His appointmen t is set for 10/16/22. Hypertensi ve renal disease 20616790 I12.9 Continue current mgmt. [id number] Jacquelin antoine, METEOROLOGY TEACHER Main Office [address] [facility] [address] [place] [place] [address] 11/09/2022 15:34:58 11/09/2022 16:41:37 Pain of left shoulder joint 1518614410 8811526 M25.512 pt sees rheum next month, will do N Injection there. H would like to have xray there as well. Rheumatoid arthritis 698 49259 M06.9 Follows with rheum regularly, stable on meds. [id number] Asim Pelaez MD Main Office [address] [facility] [address] [place] [address] 12/02/2022 09:10:32 12/02/2022 10:01:47 Renal disorder due to type 2 diabetes mellitus 482825207 E11.21 His A1C silvia to 8.0 most likely secondary to 4-5 steroid injections he received over the last 2 months for his back/hip pains. He hasn't changed his diet and is c/w his meds. No changes in mgmt at this point and will recheck in 3 months. Major depr essive disorder 503421369 F32.0 This is currently in remission. On a low dose of an SSRI. Hyperlipidemia 91827978 E78.5 Good control; last LDL at goal; not due for fasting labs until next year. Chronic ki dney disease stage 3B 939708768 N18.32 followed by renal. Creatinine stable at 1.2 to 1.6. Insomnia 074158873 G47.0 9 Doing well on doxepin. Memory impairment 373386 006 R41.[address] head [address] done November 2021 and was seen by [facility] geriatric medicine. We will look into what the next step should be. [id number] Asim Pelaez MD Main Office [address] [facility] [address] [facility] [place] [address] 06/29/2023 10:17:26 06/29/2023 11:38:10 Adult health examination 359323453 Z00.00 He had a colonoscop y done by Dr Terrell 07/15 and is due again in June 2024. He is UTD with immunizati ons including COVID, tetanus, flu, pneumonia, RSV and shingles. Chronic ki dney disease stage 3B 599802059 N18.32 followed by renal. Creatinine stable at 1.2 to 1.6. Coronary arteriosclerosis 70841707 I25.10 had stent placement by Dr Killian Hyperlipidemia 62685403 E78.5 Good control; last LDL at goal; not due for fasting labs until next year. Hypertensi ve renal disease 07017696 I12.9 Continue current mgmt. Renal diso rder due to type 2 diabetes mellitus 000572336 E11.21 His A1C has improved from 8.0 to 7.0. It may have been elevated because of prednisone use a few months ago. [facility] for [facility] 078411280 Z91.81 Gave him info on the Fall Prevention Initiative and he will schedule an appointmen t. 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 Minimal co gnitive impairment 401315350 R41.89 He has been followed by geriatric medicine (Dr Suazo, ENEDELIA Reeves), and had neuropsych testing c/w AD. I texted with ENEDELIA Reeves and she will schedule him for a cholineste rase inhibition trial and care navigation . Alzheimer's disease 6072 9004 G30.9 Followed by neuropsych and geritric medicine [id number] Asim Pelaez MD Main Office [address] [facility] [address] [place] [place] [address] 10/14/2023 09:37:19 10/14/2023 10:32:36 Renal disorder due to type 2 diabetes mellitus 063722935 E11.21 His A1C has improved from 8.0 to 7.0 and is now at 7.2. Chronic ki dney disease stage 3B 321497353 N18.32 followed by renal. Creatinine stable at 1.2 to 1.6. Hypertensi ve renal disease 58753332 I12.9 Continue current mgmt. Anemia 380329987 D64.9 Check CBC. Allergic rhinitis 636893 04 J30.9 Right side sciatica 3202 314396 36413 M54.31 He will try home exercises and if they are not helpful he will make an appointmen t with PT. Hyperlipidemia 66524067 E78.5 Good control; last LDL at goal; check fasting lipid level. Mild neuro cognitive disorder 331570505 G31.84 Followed by the memory d/o clinic and currently taking aricept 5 mg which he is tolerating well. He is followed every 6 months. [id number] Asim Pelaez MD Main Office [address] [facility] [address] [facility] [place] [address] 11/23/2023 09:01:28 11/23/2023 16:52:56 [id number] Asim Pelaez MD Main Office [address] [facility] [address] [facility] [place] [address] 12/02/2023 09:38:20 12/02/2023 10:28:53 Right bundle branch block 58060000 I45.0 cardiology was consulted in hospital, COVID-19 532902377 U07.1 S/P admitted with weakness, covid positive, treated with IV remdesevir . feeling better, no cough/ SOB. required O2 in hospital but weaned off prior to D/C Prolonged QT interval 11 3502004 I45.81 RBBB, prolonged QT, avoid QT prolonging med, continue hydroxychl oroquine, thought to be infectious . Hypokalemia 20798042 E87 .6 Chronic ki dney disease stage 3B 981894296 N18.32 Renal diso rder due to type 2 diabetes mellitus 300523772 E11.21 Last A1C 7.1 in September, on jardiance. Chronic ki dney disease due to hypertension [id number] 14575 I12.9 has nephrology appt next week. [id number] Asim Pelaez MD Main Office [address] [place], [place] [address] 01/13/2024 14:11:50 01/13/2024 15:04:08 Hypertensive renal disease 79962665 I12.9 repeat BP normal. Renal diso rder due to type 2 diabetes mellitus 333189162 E11.21 on jardiance, A1C 6.2 today, recheck in 3 months with PCP. Continue diet and medication s. Rheumatoid arthritis [address] Chao, is out of prednisone and having back pain, will refill. [id number] Asim Pelaez MD Main Office [address] [address] [place], [place] [address] 02/09/2024 09:24:32 02/09/2024 10:10:41 Lumbosacral spondylosis without myelopathy 85084192 M47.817 He has an appointmen t with Dr Coreas in March. I gave him the number and he will call to be placed on a cancellati on list. Hypertensive disorder 38 597200 I10 He is taking max dose of valsartan and also carvedilol but BP still running high. We cannot increase the beta alexey because of a low heart rate. Will also avoid a diuretic because of previous low potassium. He will restart amlodipine at 5 mg. Minimal co gnitive impairment 894136254 R41.89 He is followed by geriatric medicine (Dr Suazo, ENEDELIA Reeves), and had neuropsych testing c/w AD. [id number] Asim Pelaez MD Main Office [address] [place], [place] [address] 04/13/2024 08:53:47 04/13/2024 09:47:40 Renal disorder due to type 2 diabetes mellitus 475031574 E11.21 His A1C has gone up from 6.2 to 6.9. No changes in mgmt. Chronic ki dney disease stage 3B 703761194 N18.32 followed by renal. Creatinine stable at 1.2 to 1.6. Hypertensi ve renal disease 99515433 I12.9 Continue current mgmt. Mild neuro cognitive disorder 551927799 G31.84 Followed by the memory d/o clinic. He was on aricept but this was stopped because of a prolonged QT and since he felt that it wasn't helping. He is followed every 6 months. Spinal andrez nosis of lumbar region 75996408 M48.[address] Coreas 2018; a fusion at L5-S1 and did well for years. His back pain returned sometime over the last year and he has an appointmen t with Dr Coreas next week to discuss options. Insomnia 276614530 G47.0 9 Doing well on doxepin and melatonin. [id number] Asim Pelaez MD Main Office [address] [facility] [address] [facility] [place] [address] 05/26/2024 09:50:05 05/31/2024 22:16:58 [id number] Asim Pelaez MD Main Office [address] [facility] [address] [place] [address] 06/01/2024 10:36:42 06/01/2024 11:23:15 Sepsis 51554172 A41.9 due to indwelling catheter-s matthew discharge, cathether was removed and pt is feeling much better-men bladimir status back to baseline Multiple n odules of lung 994928543 R91.8 -imaging in the ED revealed mutiple right lung nodules>Mu ltiple new nonspecifi c right-side d micronodul es annotated on series 205:>Right upper lobe inferiorly 5 mm nodule anteriorly image 53 series.>Ri ght lower lobe laterally image 57 measuring 6 to 7 mm.>Right middle lobe anteriorly measuring 4 mm axial image 76.>Right lower lobe nodule posterior medially measuring 1.2 cm-will order PET Lesion of liver 70666676 [address] of abdomen revealed indetermin ate liver lesions-f/ u MRCP recommende d Transition of care 02108 28370 105 Z75.8 reviewed hospital documentat ion Urinary tr act infectious disease 73652799 N39.0 -was evaluated at [facility] for UTI related to dwelling catheter leading to sepsis-landen ated with augmentin course-saw urology earlier this week, catheter was removed>jackman s f/u later today to determine if catheter needs to be placed back in-pt reports to be feeling well Renal diso rder due to type 2 diabetes mellitus 835513580 E11.21 -will check kidney function-j ardiance was stopped by in ED due to [place]-pt has visiting nurse [id number] Asim Pelaez MD Main Office [address] [place] [address] 08/25/2024 10:57:16 08/25/2024 12:05:28 Adult health examination 117925223 Z00.00 He had a colonoscop y done by Dr Terrell 07/15 and is due again in June 2024. He is UTD with immunizati ons including COVID, tetanus, flu, pneumonia, RSV and shingles. Chronic ki dney disease stage 3B 395545430 N18.32 followed by renal. Creatinine stable at 1.2 to 1.6. Hypertensi ve renal disease 74799973 I12.9 Continue current mgmt. Hyperlipidemia 17424563 E78.5 Good control; last LDL at goal; check fasting lipid level. Renal diso rder due to type 2 diabetes mellitus 430229957 E11.21 His A1C has gone up from 6.2 to 6.9. No changes in mgmt. Rheumatoid arthritis [address] Chao; on methotrexa te. His hands are mostly effected. Started prednisone 2.5 mg and will go back to bid since that is the dose which helps. He will monitor his sugars to be sure that they do not go too high. Minimal co gnitive impairment 744884266 R41.89 He was followed by geriatric medicine (Dr Suazo, ENEDELIA Reeves), and had neuropsych testing c/w AD. He was supposed to have a f/u but this didn't happen. I sent a [place] msg to ENEDELIA Reeves and will f/u with this. Malignant melanoma of eye 606535595 C69.90 Followed at [facility]. Coronary arteriosclerosis 14932114 I25.10 Had a stent placed in the past. Has not been seen by cardiology since January 2024 (about 7 months ago). [id number] Asim Pelaez MD Main Office [address] [place] [address] 12/20/2024 10:59:31 12/20/2024 11:55:27 Renal disorder due to type 2 diabetes mellitus 688187076 E11.21 His A1C remains less than 7. He was on meds in the past (jardiance ) but this was stopped 5 months ago because his A1C was good after weight loss. No longer needs meds. We will follow. Low back pain 495578954 M54.50 This has been chronic and he is willing to try PT.. Major depr essive disorder 540853298 F32.0 He will increase his sertraline from 50 to 100 mg daily. [id number] Asim Pelaez MD Main Office [address] [facility] [address] [facility] [place] [address] 04/10/2025 11:23:18 04/10/2025 11:59:34 Renal disorder due to type 2 diabetes mellitus 621356179 E11.21 His A1C remains less than 7. He was on meds in the past (jardiance ) but this was stopped in 2023 because his A1C was good after weight loss. No longer needs meds. We will follow. Influenza vaccination declined 598193072 Z28.21 52246267 Hypertensive disorder 38 415010 I10 Good control; continue current mgmt. Mild neuro cognitive disorder 567717473 G31.84 Followed by the memory d/o clinic. He was on aricept but this was stopped because of a prolonged QT and since he felt that it wasn't helping. He is followed every 6 months. He would like to try a different med (memantine ) to see if that helps. Lesion of breast 7963831 04 N64.9 3272588 Non tender palpable lesion at left breast. Lesion of skin of face 8364621547 06 L98.9 5154488 Advised that he call his dermatolog ist to be evaluated since he has a h/o skin cancer. Nonischemi c congestive cardiomyopathy 3077618431 04 I42.0 [address] his [address]i st to see if he should still be on farxiga. Health Concerns Section Related Observation LastModified by Organization Detai ls LastModified Time None Recorded Concern Status LastModified by Organization Details LastModified Time None Recorded Advance Directives Directive Y: Payers Insurance Date Sequence Insurance Name Policy Number Policy Baker Covered Member ID Baker Member ID Guarantor Name 04/25/2025 1 [facility]: [place]ARE PPO BLUE (MEDICARE REPLACEMENT PPO) [id number] Cholo Carr [id number] Cholo Carr 12/20/2024 1 [facility]: MEDICARE PPO BLUE (MEDICARE REPLACEMENT PPO) Cholo Enriquez Lilly [id number] Cholo Enriquez Lilly 12/20/2024 1 [facility] (PPO) [id number] Cholo Enriquez Lilly [id number] Cholo Enriquez Lilly Notes Date Note Type Note Provider Name and Address Organization Details Recorded Time 4 text/html Hospitalization Contact RecordReported by PatientHospitalization Contact RecordFor follow up, patient [facility]sh[facility],admit date: (please enter in format 'mm/dd/yyyy') (05/21/2024),date of discharge: (please enter in format 'mm/dd/yyyy') (05/25/2024), anddate of contact: (please enter in format 'mm/dd/yyyy') (05/26/2024).Medicare covered inpatient stay? yesMedicare RAYMOND with in 48 working hours? yesHigh Complexity code valid on or before:MayModerate Complexity code valid on or before:MayHCP on file? noMOLST on file? noDischarge Summary available? yes05/29/2024 SPOKE W/PT, HOME WITH , DOING WELL, HAS ALL MEDS EXCEPT DIABETIC TESTING SUPPLIES WHICH I SENT TO HIS PHARMACY FOR HIM. MEDS TO BE DISCUSSED AT HOSP F/U APPT ON Wednesday05/29/2024. [facility], lethargy, fever, reported diarrhea and vomiting. Pt found to have sepsis 2/2 E Coli bacteremia from UTI from indwelling razo cath. 1/2 blood cx positive, resistant to quinolones. Treatment switched to Augmentin 875 mg TID x 7 days total. Recent back surgery with s/p urinary retention, d/c with indwelling razo cath until sees urology f/u for voiding trial. Has neurology f/u on 06/09/24 for back surgery as well. PCP HEADS UP/FOLLOW UP- MRCP needed for interval f/u in 6 months.- Also noted pulmonary nodules which need further PET scan for eval.- d/c with Razo cath, has failed multiple voiding trials, urology f/u needs to be scheduled by the pt (son aware as well) MEDS RECONCILED ONEIL SOLORZANO [address], [place], [address], [facility] 05/31/2024 22:16:57 4 text/html ROS as noted in the [facility] Hospitalization Contact RecordFor follow up, patient reports hospital: [facility], admit date: (05/21/2024), date of discharge: (05/25/2024), and date of contact: (05/26/2024).Medicare covered inpatient stay? yesMedicare RAYMOND with in 48 working hours? yesHigh Complexity code valid on or before:MayModerate Complexity code valid on or before:MayHCP on file? noMOLST on file? noDischarge Summary available? yes 05/29/2024 SPOKE W/PT, HOME WITH , DOING WELL, HAS ALL MEDS EXCEPT DIABETIC TESTING SUPPLIES WHICH I SENT TO HIS PHARMACY FOR HIM. MEDS TO BE DISCUSSED AT HOSP F/U APPT ON Wednesday05/29/2024. Pt brought in by [facility] from [facility] with AMS, lethargy, fever, reported diarrhea and vomiting. Pt found to have sepsis 2/2 E Coli bacteremia from UTI from indwelling razo cath. 1/2 blood cx positive, resistant to quinolones. Treatment switched to Augmentin 875 mg TID x 7 days total.Recent back surgery with s/p urinary retention, d/c with indwelling razo cath until sees urology f/u for voiding trial. Has neurology f/u on 06/09/24 for back surgery as well.PCP HEADS UP/FOLLOW UP- MRCP needed for interval f/u in 6 months.- Also noted pulmonary nodules which need further PET scan for eval.- d/c with Razo cath, has failed multiple voiding trials, urology f/u needs to be scheduled by the pt (son aware as well)MEDS RECONCILED ONEIL SOLORZANO [address], [place], [address], [facility] [place] 06/30/2024 14:57:47 5 text/html Generic HPI TemplateReported by PatientHis chronic problems have been stable. He is followed by renal, rheum and was followed by cardiology in the past. He has been having trouble with his memory and was unable to tolerate the donepezil. Medicare Annual Wellness VisitReported by PatientSocial/Behavioral HistoryFor diet and nutrition, patient reportshealthy diet. For fracture risk, patient reportsno history of fractures. For physical activity, patient reportsexercises on a regular basis (walks).Mental Status:For depression risk, patient reportshistory of mood disordersandhistory of depressionbut reportsno significant changes in weight,no agitation,no feelings of worthlessness or guilt, andno thoughts of suicide(had depression after the of his daughter). For concentration and memory, patient reportsdecreased concentrating abilityandmemory lapses or loss(seen by dr suazo at geriatric medicine who recommended an increase in his sertraline and a referral for a med psych consult. he also stated that he would do a referral to neuropsych for further evaluation.). For orientation, patient reportsno disorientation to time,no disorientation to date, andno disorientation to place. For speech/motor difficulties, patient reportsno speech difficulties.Functional AbilityFor hearing, patient reportsno loss of hearing. For activities of daily living, patient reportsable to bathe with limited or no assistance,able to contol urination and bowels,able to dress with limited or no assistance,able to feed self with limited or no assistance,able to get out of chair or bed with limited or no assistance,able to groom with limited or no assistance, andable to toilet with limited or no assistance. For instrumental activities of daily living, patient reportsable to do house work with limited or no assistance,able to grocery shop with limited or no assistance,able to manage medications with limited or no assistance,able to manage money with limited or no assistance,able to prepare meals with limited or no assistance, andable to use the phone with limited or no assistance. Asim Pelaez MD [address] [address], [place], [address], [facility] 08/27/2024 14:26:43 5 text/html Diabetes F/UReported by PatientHPIFor context, patient reportsnormal range of home blood sugars (in the low 100s),seeing eye doctor regularly,checking feet regularly,taking aspirin daily,not missing doses of medications, andno side effects from medications. For associated symptoms, patient reportsno weight gain,no weight loss,no dizziness,no sweats,no headaches,no confusion,no increased thirst,no increased appetite, andno increased urination.Presents for DM follow-up, sugars are good at home, but he cannot remember numbers. He stopped his last diabetic med 5 months ago and his A1C has remained under 7.ROS as noted in the HPI His back pain continues to be a chronic problem despite surgery by Dr Coreas. The pain is mostly right sided with radiation into his right leg. Melatonin works well for sleep; he stopped the doxepin. Memory has remained stable and he continues to drive w/o problem. He is followed by neuropsych at [facility] every 6 months. He was on aricept for a number of months but stopped it because of SE's (prolonged QT) and lack of benefit. Asim Pelaez MD [address], [address], [facility] 12/20/2024 13:03:26 5 text/html Hypertension F/UReported by PatientHPIFor lifestyle, patient reportsnot exercising regularlybut reportslimiting/avoiding salt. For associated symptoms, patient reportsno dizziness,no lightheadedness,no chest pain,no shortness of breath,no palpitations,no edema, andno calf pain with exertion. For medications, patient reportstaking medications as directedandno side effects from medication. Diabetes F/UReported by PatientHe has not been on meds for almost a year. His A1C improved a great deal after weight loss.ROS as noted in the HPI He has mild CHF and CAD and is followed by cardiology. His last ECHO showed an improved EF of 52%. A recent cath was done showing a patent stent and no appreciable stenosis. According to his med list he is on farxiga but his states that he is not taking this. It is unclear whether or not his contract attorney stopped this. He has been having a tenderness and mostly an itch at his left nipple that has been going on for months. He denies any injury. Has a rash and scaly patch at the right cheek that is not improving. Asim Pelaez MD [address] [address], [place], [address], [facility] 04/10/2025 12:33:44
--- OUTSIDE RECORDS SUMMARY | 2025-06-12 00:23 | XMS_ITS | Data Portability ---
Author Organization [facility] Pain [facility] PAIN OFFICE Address [address] [address] [place] [address] Care Team Providers Care Mainframe Systems Programmer Name Role Phone ASIM DICK Primary Care Provider PUJA MARIA Referring Provider [phone] Assessment Encounter Date Assessment Date Assessment LastModified by Organization Details LastModified Time 08/30/2018 08/30/2018 Cholo Carr is a 73 year old man with complaints of low back pain . He is S/P back surgery with Dr. Coreas , Left L5-S 1 trans facet decompression with minimally invasive fusion on 05/23/2018 with good resolution of his left leg pain. He has persistent low back pain. On exam, he has a positive facet loading bilaterally with tenderness on palpation of the L4-5 and L5-S1 facet regions. MRI Lumbar spine shows multilevel degenerative changes with facet arthritis mainly at L4-5 and L5-S1 levels . He has had a CT scan and bone scan which are negative for metastatis. He is here for a bilateral lumbar facet joint injections under fluoroscopic guidance. The risks and benefits of the procedure were reviewed in detail. He wishes to proceed. He can restart plavix tomorrow. He will follow up in four weeks. [email or web address] Not available 08/30/2018 13:51:16 09/26/2018 09/26/2018 Cholo Carr is a 73 year old man with complaints of low back pain . He is S/P back surgery with Dr. Coreas , Left L5-S 1 trans facet decompression with minimally invasive fusion on 05/23/2018 with good resolution of his left leg pain. He has persistent low back pain. MRI Lumbar spine shows multilevel degenerative changes with facet arthritis mainly at L4-5 and L5-S1 levels . He has had a CT scan and bone scan which are negative for metastatis.He is here for a follow up after a bilateral lumbar facet joint injections under fluoroscopic guidance. He reports good pain benefit which is ongoing. He states he has pain in his right low back occasionally. On exam, he has a positive Jan's test with tenderness in right sacroiliac joint region. We discussed treatment options. 1. Trial of physical therapy - [facility] [place], [place] 2. He can follow up for a right sacroiliac joint injection if his pain worsens. He needs to come off plavix for the procedure. [email or web address] Not available 09/26/2018 13:56:31 11/30/2018 11/30/2018 Cholo Carr is a 73 year old man with complaints of low back pain . He is S/P back surgery with Dr. Coreas , Left L5-S 1 trans facet decompression with minimally invasive fusion on 05/23/2018 with good resolution of his left leg pain. He has persistent low back pain. MRI Lumbar spine shows multilevel degenerative changes with facet arthritis mainly at L4-5 and L5-S1 levels . He has had a CT scan and bone scan which are negative for metastatis.He is here for a right sacroiliac joint steroid injection under fluoroscopic guidance was recommended. The risks and benefits of the procedure were discussed in detail. He wishes to proceed. He can restart his plavix tomorrow. He needs to follow up in six weeks. [email or web address] Not available 11/30/2018 10:35:28 01/16/2019 01/16/2019 Cholo Carr is a 73 year old man with complaints of low back pain . He is S/P back surgery with Dr. Coreas , Left L5-S 1 trans facet decompression with minimally invasive fusion on 05/23/2018 with good resolution of his left leg pain. He has persistent low back pain. MRI Lumbar spine shows multilevel degenerative changes with facet arthritis mainly at L4-5 and L5-S1 levels . He has had a CT scan and bone scan which are negative for metastatis.He is here for a follow up after a bilateral lumbar facet joint injections under fluoroscopic guidance. He reports good pain benefit which is ongoing. He states he has pain in his right low back occasionally. On exam, he has a positive Jan's test with tenderness in right sacroiliac joint region. Trial of Right sacroiliac joint injection under fluoroscopic guidance was recommended. The risks and benefits of the procedure were discussed in detail. He wishes to proceed. An appointment has been booked for the same. He needs a dumpster driver on the day of the procedure. He is on Plavix . He can stop plavix for 7 days for the procedure per his precision lens generator . Instructions were given. [email or web address] Not available 01/16/2019 10:43:36 02/15/2019 02/15/2019 Cholo Carr is a 74 year old man with complaints of low back pain . He is S/P back surgery with Dr. Coreas , Left L5-S 1 trans facet decompression with minimally invasive fusion on 05/23/2018 with good resolution of his left leg pain. He has persistent low back pain. MRI Lumbar spine shows multilevel degenerative changes with facet arthritis mainly at L4-5 and L5-S1 levels . He has had a CT scan and bone scan which are negative for metastatis.He is here for a right sacroiliac joint steroid injection under fluoroscopic guidance was recommended. The risks and benefits of the procedure were discussed in detail. He wishes to proceed. He can restart his plavix tomorrow. He can follow up as needed. [email or web address] Not available 02/15/2019 11:54:15 Plan of Treatment Reminders Order Date Submit Date Provider Last Modified By Organization Details Last Modified Time Details Appointments None recorded. Lab None recorded. Referral physical therapist referral 2018 019 [email or web address] [facility], [address] [facility] [facility] [address], [place], [address], 9 13:59:24 Procedures None recorded. Surgeries None recorded. Imaging None recorded. Medication Orders None recorded. Patient TargetsNo targets recorded. Patient Instructions Encounter Date Encounter Id Patient Instructions Last Modified By Organization Details Last Modified Time 08/30/2018 [id number] I have advised him to continue with activities as tolerated. He is a diabetic . Steroids can cause a transient increase in blood glucose levels . He was advised to monitor his blood glucose levels . If above 250 to contact his PCP. [email or web address] Not available 08/30/2018 13:46:13 09/26/2018 [id number] I have advised him to continue with activities as tolerated. He is a diabetic . Steroids can cause a transient increase in blood glucose levels . He was advised to monitor his blood glucose levels . If above 250 to contact his PCP. [email or web address] Not available 09/26/2018 13:52:48 11/30/2018 [id number] I have advised him to continue with activities as tolerated. He is a diabetic . Steroids can cause a transient increase in blood glucose levels . He was advised to monitor his blood glucose levels . If above 250 to contact his PCP. tmanikantan Not available 11/30/2018 10:34:05 01/16/2019 [id number] I have advised him to continue with activities as tolerated. He is a diabetic . Steroids can cause a transient increase in blood glucose levels . He was advised to monitor his blood glucose levels . If above 250 to contact his PCP. tmanikantan Not available 01/16/2019 10:18:59 02/15/2019 [id number] I have advised him to continue with activities as tolerated. He is a diabetic . Steroids can cause a transient increase in blood glucose levels . He was advised to monitor his blood glucose levels . If above 250 to contact his PCP. [email or web address] Not available 02/15/2019 11:52:30 Reason for Referral Physical Therapist Referral for Inflammation of sacroiliac joint Referring Physician: Fan Gaytan, Pain Management, Encounter Date: 09/26/2018 Problems Name Problem SNOMED Code Status Onset Date Resolution Date Notes Provider Name and Address Organization Details Recorded Time Inflammation of sacroiliac joint 56132569 Active Fan patton MD [address] , [address], [place], [address], [place] [facility] 8 14:31:27 Lumbosacral radiculopathy 3962306 Active Fna patton MD [address] , [address], [place], [address], [place] [facility] 8 11:15:38 Lumbosacral spondylosis without myelopathy 40467143 Active 2017 Fan patton MD [address] , [address], [place], [address], [place] [facility] 8 11:21:34 Displacement of lumbar intervertebral disc without myelopathy 79939342 Active 2017 Fan patton MD [address] [facility] , [address], [place], [address], [place] [facility] 8 11:21:35 Neuropathy due to diabetes mellitus 550174312 Active 2017 Fan patton MD [address] [facility] , [address], [place], [address], [place] [facility] 8 11:21:36 Problem Notes None recorded. Procedures Surgical History Date Name Laterality Status Provider Name and Address Organization Details Recorded Time 02/16/20 19 Sacroiliac Joint Steroid Injections, using Fluoroscopy completed Fan Gaytan MD [address] , [address], [place], [address], [place] [facility] 02/15/2019 11:53:31 12/01/19 19 Sacroiliac Joint Steroid Injections, using Fluoroscopy completed Fan Gaytan MD [address] [facility] , [address], [place], [address], [place] [facility] 11/30/2018 10:33:03 08/30/19 19 Fluoroscopic Guided Lumbar Facet Steroid Injections of levels completed Fan Gaytan MD [address] [facility] , [address], [place], [address], [place] [facility] 08/30/2018 13:49:36 02/16/20 18 Lumbar Epidural steroid injection under fluoroscopic guidance completed Fan Gaytan MD [address] [facility] , [address], [place], [address], [place] [facility] 02/15/2018 13:25:33 12/01/19 18 Fluoroscopic Guided Lumbar Facet Steroid Injections of levels completed Fan Gaytan MD [address] [facility] , [address], [place], [address], [place] [facility] 12/02/2017 13:26:26 05/26/20 17 Other completed Jacquelin Hatfield [place] [facility] 11/01/2017 10:43:10 12/24/19 17 Fluoroscopic Guided Lumbar Facet Steroid Injections of levels completed Fan Gaytan MD [address] , [address], [place], [address], [place] [facility] 12/23/2016 09:46:36 07/29/19 17 Fluoroscopic Guided Lumbar Facet Steroid Injections of levels completed Fan Gaytan MD [address] , [address], [place], [address], [place] [facility] 07/29/2016 13:30:23 06/10/20 16 Fluoroscopic Guided Lumbar Facet Steroid Injections of levels completed Fan Gaytan MD [address] , [address], [place], [address], [place] [facility] 06/12/2016 09:50:20 07/26/19 10 Arthroscopic Surgery completed Jacquelincachorro Hatfield [place] [facility] 05/19/2016 10:04:15 07/26/19 07 Joint Replacement completed Jacquelincachorro [place]field [place] [facility] 05/19/2016 09:44:04 07/26/19 04 Prostate Surgery completed Jacquelincachorro [place] [facility] 05/19/2016 09:43:54 07/26/19 04 Other completed Jacquelincachorro [place] [facility] 05/19/2016 10:07:17 07/26/18 90 Other completed Jacquelin [place] [facility] 05/19/2016 10:06:32 Tonsillectomy completed Jacquelincachorro [place] [facility] 05/18/2016 14:56:38 Lumbar Fusion completed Jacquelincachorro [place] [facility] 07/11/2018 11:32:54 Imaging Results None recorded. Procedure Notes None recorded. Medical Equipment None Reported. Allergies Allergen ID Allergen Name Allergen Category Reaction Reaction Severity Criticality Documentation Date Start Date Code Code System Note Provider Name and Address Organization Details Recorded Time 21631 lisinopri l medicatio n cough severe Not available 05/19/2016 82319 RxNorm Jacquelin driscoll [place] [facility] 6 09:41:31 Medications Name Sig Start Date Stop Date Status Note LastModified by Organization Details LastModified Time atorvastat in 80 mg tablet active Not Available Not Available Not Available carvedilol 12.5 mg tablet active Not Available Not Available Not Available tizanidine 2 mg tablet 07/11 completed Not Available Not Available Not Available cetirizine 10 mg tablet take 1 tablet by mouth once daily 11/01 completed Not Available Not Available Not Available azithromyc in 250 mg tablet 05/19 completed Not Available Not Available Not Available metoprolol succinate ER 50 mg tablet,ext ended release 24 hr 07/11 completed Not Available Not Available Not Available hydrocodon e 5 mg-acetami nophen 325 mg tablet 08/30 completed Not Available Not Available Not Available prednisone 20 mg tablet 12/23 completed Not Available Not Available Not Available lovastatin 40 mg tablet 11/01 completed Not Available Not Available Not Available fluorourac il 5 % topical cream 11/01 completed Not Available Not Available Not Available gabapentin 400 mg capsule 1 tab TID active Not Available Not Available No t Available glipizide ER 5 mg tablet, extended release 24 hr pt taking 2 tab twice daily 01/16 completed Not Available Not Available Not Available clopidogre l 75 mg tablet active Not Available Not Available Not Available aspirin 81 mg tablet,del ayed release Take 1 tablet every day by oral route. active Not Available Not Available No t Available triamcinol one acetonide 0.1 % topical cream 07/11 completed Not Available Not Available Not Available ofloxacin 0.3 % ear drops 11/01 completed Not Available Not Available Not Available methotrexa te sodium 2.5 mg tablet take 8 tablets by mouth every week active Not Available Not Available No t Available prednisone 1 mg tablet 05/19 completed Not Available Not Available Not Available amlodipine 10 mg tablet active Not Available Not Available Not Available prednisone 2.5 mg tablet 05/19 completed Not Available Not Available Not Available cephalexin 500 mg capsule 11/30 completed Not Available Not Available Not Available Guaifenesi n AC 10 mg-100 mg/5 mL oral liquid take 2 teaspoon fuls by mouth twice a day for 10 days if needed 11/01 completed Not Available Not Available Not Available lidocaine 5 % topical patch APPLY 1 PATCH BY TRANSDER MAL ROUTE DAILY (MAY WEAR UP TO 12 HOURS) 07/11 completed LVM for pt to make f/u apt prior to PA. 09/02/17 pt said ignore PA it wasnt meant for us and pt still has a few patches .(sa) Not Available Not Available Not Available folic acid 1 mg tablet TAKE 1 TABLET BY MOUTH EVERY DAY active Not Available Not Available No t Available furosemide 20 mg tablet 01/16 completed Not Available Not Available Not Available metoprolol succinate ER 25 mg tablet,ext ended release 24 hr 11/01 completed Not Available Not Available Not Available hydroxychl oroquine 200 mg tablet active Not Available Not Available Not Available levofloxac in 750 mg tablet 12/23 completed Not Available Not Available Not Available fluticason e propionate 50 mcg/actuat ion nasal spray,susp ension 07/11 completed Not Available Not Available Not Available betamethas one dipropiona te 0.05 % lotion 11/01 completed Not Available Not Available Not Available doxycyclin e hyclate 100 mg tablet 11/01 completed Not Available Not Available Not Available glipizide 5 mg tablet active Not Available Not Available Not Available amoxicilli n 875 mg-potassi um clavulanat e 125 mg tablet 11/01 completed Not Available Not Available Not Available cyclobenza patrick 5 mg tablet take 1 tablet by mouth three times a day if needed for 10 days 11/01 completed Not Available Not Available Not Available fenofibrat e 160 mg tablet 11/01 completed Not Available Not Available Not Available Accu-Chek Multiclix Lancet active Not Available Not Available Not Available valsartan 320 mg-hydroch lorothiazi de 25 mg tablet active Not Available Not Available Not Available ProAir HFA 90 mcg/actuat ion aerosol inhaler 01/16 completed Not Available Not Available Not Available Gavilyte-C 240 gram-22.72 gram-6.72 gram-5.84 gram oral solution 05/19 completed Not Available Not Available Not Available Brilinta 90 mg tablet 07/11 completed Not Available Not Available Not Available Accu-Chek FastClix Lancing Device active Not Available Not Available Not Available Accu-Chek SmartView Test Strips active Not Available Not Available Not Available Multi Vitamin active Not Available Not Available Not Available Fluzone High-Dose 2014- (PF) 180 mcg/0.5 mL intramuscu lar syringe 05/19 completed Not Available Not Available Not Available Fluzone High-Dose (PF) 180 mcg/0.5 mL intramuscu lar syringe inject 0.5 millilit er intramus cularly 05/19 completed Not Available Not Available Not Available Fluad 65yr up(PF)45 mcg(15 mcgx3)/0.5 mL intramuscu lar syringe inject 0.5 millilit er intramus cularly 11/01 completed Not Available Not Available Not Available Shingrix (PF) 50 mcg/0.5 mL intramuscu lar suspension , kit 02/15 completed Not Available Not Available Not Available Fluad 65yr up(PF)45 mcg(15 mcgx3)/0.5 mL intramuscu lar syringe inject 0.5 millilit er intramus cularly 07/11 completed Not Available Not Available Not Available Vitals Date Recorded Body height Heart rate Oxygen saturation Oxygen saturation in Arterial blood by Pulse oximetry Systolic And Diastolic Provider Name and Address Organization Details Last Updated DateTime 9 175.26 cm 61 /min 98 % 98 % 158/76 mm[Hg] Jacquelin Hatfield [place] - [facility] 9 10:59:35 Date Recorded Body height Heart rate Oxygen saturation Oxygen saturation in Arterial blood by Pulse oximetry Systolic And Diastolic Provider Name and Address Organization Details Last Updated DateTime 9 175.26 cm 75 /min 96 % 96 % 130/78 mm[Hg] Jacquelin Hatfield [place] [facility] 9 11:35:45 Date Recorded Body height Oxygen saturation Oxygen saturation in Arterial blood by Pulse oximetry Heart rate Systolic And Diastolic Provider Name and Address Organization Details Last Updated DateTime 9 175.26 cm 98 % 98 % 75 /min 128/73 mm[Hg] Jacquelin Hatfield [place] [facility] 9 09:59:46 Date Recorded Body height Heart rate Oxygen saturation Oxygen saturation in Arterial blood by Pulse oximetry Body mass index (BMI) Body weight Systolic And Diastolic Provider Name and Address Organization Details Last Updated DateTime 9 175.26 cm 58 /min 95 % 95 % 27.3 kg/m2 47121.5 9 g 126/62 mm[Hg] Jacquelin Hatfield [place] [facility] 9 09:35:30 Date Recorded Body height Heart rate Oxygen saturation Oxygen saturation in Arterial blood by Pulse oximetry Systolic And Diastolic Provider Name and Address Organization Details Last Updated DateTime 9 175.26 cm 52 /min 98 % 98 % 135/64 mm[Hg] Jacquelin Hatfield [place] - [facility] 9 10:08:36 Social History Question Answer Notes LastModified by Organizat ion Details LastModified Time Tobacco Smoking Status Former Smoker Quit in 1974 Not Available [facility] 05/10/2020 03:16:12 Which Illicit Or Recreational Drugs Have You Used? No [id number] Information not available 05/10/2020 Education 12 [email or web address] Information no t available 05/18/2016 Live Alone Or With Others? With Others arbor Information not available 05/18/2016 Marital Status arbor Informatio n not available 05/18/2016 What Was The Date Of Your Most Recent Tobacco Screening? 01/16/2019 [id number] Information not available 05/10/2020 How Many Years Have You Smoked Tobacco? 10 [id number] Information not available 05/10/2020 Sex: Unknown Functional Status Question Answer Note LastModified by Organizat [employer] Details LastModified Time What is your level of alcohol consumption? Occasional [id number] Information not available 05/10/2020 Are you currently employed? 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 Family History Nothing Reported. Medical History Condition Response Diabetes Y Cancer Y Arthritis Y Hypertension Y High Cholesterol Y Past Encounters Encounter ID Performer Location Encounter Start Date Encounter Closed Date Diagnosis/Indication Diagnosis SNOMED-CT Code Diagnosis ICD10 Code Diagnosis IMO Codes Diagnosis Note [id number] Fan Gaytan MD PAIN OFFICE [address] [facility] [address] [facility] [place] [place] [address] 05/18/2016 14:04:13 05/18/2016 19:37:50 Lumbosacral spondylosis without myelopathy 57751371 M47.817 Displaceme nt of lumbar intervertebral disc without myelopathy 82529492 M51.26 Neuropathy due to diabetes mellitus 323378243 E11.40 [id number] Fan Gaytan MD PAIN OFFICE [address] [place] [address] 06/10/2016 08:42:45 06/12/2016 10:55:53 Lumbosacral spondylosis without myelopathy 77701046 M47.817 Neuropathy due to diabetes mellitus 151488199 E11.40 Displaceme nt of lumbar intervertebral disc without myelopathy 62713865 M51.26 [id number] Fan Gaytan MD PAIN OFFICE [address] [place] [address] 07/13/2016 09:12:44 07/13/2016 11:01:42 Neuropathy due to diabetes mellitus 942240034 E11.40 Lumbosacra l spondylosis without myelopathy 17635129 M47.817 Displaceme nt of lumbar intervertebral disc without myelopathy 70389264 M51.26 [id number] Fan Gaytan MD PAIN OFFICE [address] [place] [address] 07/29/2016 11:11:45 07/29/2016 15:27:47 Lumbosacral spondylosis without myelopathy 94804094 M47.817 Displaceme nt of lumbar intervertebral disc without myelopathy 75908733 M51.26 Neuropathy due to diabetes mellitus 640849441 E11.40 [id number] Fan Gaytan MD PAIN OFFICE [address] [place] [address] 08/31/2016 09:45:19 08/31/2016 13:56:18 Lumbosacral spondylosis without myelopathy 94713009 M47.817 Displaceme nt of lumbar intervertebral disc without myelopathy 36628870 M51.26 Neuropathy due to diabetes mellitus 256360686 E11.40 [id number] Fan Gaytan MD PAIN OFFICE [address] [place] [address] 12/23/2016 08:41:52 12/23/2016 14:40:25 Lumbosacral spondylosis without myelopathy 73463348 M47.817 Displaceme nt of lumbar intervertebral disc without myelopathy 12302410 M51.26 Neuropathy due to diabetes mellitus 286595785 E11.40 [id number] Fan Gaytan MD [facility] [address] [place] [address] 11/01/2017 10:14:09 11/01/2017 13:24:44 Lumbosacral spondylosis without myelopathy 10394615 M47.817 Displaceme nt of lumbar intervertebral disc without myelopathy 66194113 M51.26 Neuropathy due to diabetes mellitus 382886471 E11.40 [id number] Fan Gaytan MD [facility] [address] [place] [address] 11/30/2017 12:51:37 12/02/2017 14:12:45 Lumbosacral spondylosis without myelopathy 93431061 M47.817 Displaceme nt of lumbar intervertebral disc without myelopathy 65627833 M51.26 Neuropathy due to diabetes mellitus 452410049 E11.40 [id number] Fan Gaytan MD PAIN OFFICE [address] [place] [address] 01/05/2018 12:57:06 01/06/2018 14:36:57 Lumbosacral spondylosis without myelopathy 60766700 M47.817 Displaceme nt of lumbar intervertebral disc without myelopathy 84962881 M51.26 Neuropathy due to diabetes mellitus 846921897 E11.40 Inflammati on of sacroiliac joint 72776600 M46.1 [id number] Fan Gaytan MD PAIN OFFICE [address] [place] [address] 02/03/2018 10:20:19 02/03/2018 11:19:51 Displacement of lumbar intervertebral disc without myelopathy 61137240 M51.26 Lumbosacra l radiculopathy 0372867 M54.17 Lumbosacra l spondylosis without myelopathy 49738615 M47.817 [id number] Fan Gaytan MD PAIN OFFICE [address] [place] [address] 02/15/2018 11:24:53 02/15/2018 14:27:50 Displacement of lumbar intervertebral disc without myelopathy 07192414 M51.26 Lumbosacra l radiculopathy 4213039 M54.17 Lumbosacra l spondylosis without myelopathy 70458117 M47.817 [id number] Fan Gaytan MD [facility] [address] [employer] [address] 07/11/2018 10:45:33 07/29/2018 11:28:28 Lumbosacral spondylosis without myelopathy 82706642 M47.817 Displaceme nt of lumbar intervertebral disc without myelopathy 26332189 M51.26 Neuropathy due to diabetes mellitus 251873281 E11.40 [id number] Fan Gaytan MD [facility] [address] [place] [address] 08/30/2018 10:49:35 08/30/2018 15:55:49 Lumbosacral spondylosis without myelopathy 05510489 M47.817 Displaceme nt of lumbar intervertebral disc without myelopathy 30598587 M51.26 Neuropathy due to diabetes mellitus 687953155 E11.40 [id number] Fan Gaytan MD PAIN OFFICE [address] [place] [address] 09/26/2018 11:21:39 09/26/2018 13:58:08 Inflammation of sacroiliac joint 65419234 M46.1 Lumbosacra l radiculopathy 1371445 M54.17 Displaceme nt of lumbar intervertebral disc without myelopathy 32437428 M51.26 Neuropathy due to diabetes mellitus 487109113 E11.40 Lumbosacra l spondylosis without myelopathy 06658682 M47.817 [id number] Fan Gaytan MD [facility] PAIN OFFICE [address] [employer] [place] [address] 11/30/2018 09:56:57 11/30/2018 11:36:14 Inflammation of sacroiliac joint 58466378 M46.1 Lumbosacra l radiculopathy 6929525 M54.17 Displaceme nt of lumbar intervertebral disc without myelopathy 54302754 M51.26 Neuropathy due to diabetes mellitus 425075316 E11.40 Lumbosacra l spondylosis without myelopathy 09416566 M47.817 [id number] Fan Gaytan MD [facility] PAIN OFF[facility] [address] [place] [address] 01/16/2019 09:15:30 01/16/2019 10:44:22 Inflammation of sacroiliac joint 39198063 M46.1 Lumbosacra l radiculopathy 3185927 M54.17 Displaceme nt of lumbar intervertebral disc without myelopathy 63179594 M51.26 Neuropathy due to diabetes mellitus 610635945 E11.40 Lumbosacra l spondylosis without myelopathy 74640006 M47.817 [id number] Fan Gaytan MD PAIN OFFICE [address] [place] [address] 02/15/2019 10:01:31 02/15/2019 11:58:06 Inflammation of sacroiliac joint 06372107 M46.1 Lumbosacra l radiculopathy 9228242 M54.17 Displaceme nt of lumbar intervertebral disc without myelopathy 03216259 M51.26 Neuropathy due to diabetes mellitus 378292470 E11.40 Lumbosacra l spondylosis without myelopathy 92957679 M47.817 Health Concerns Section Related Observation LastModified by Organization Detai ls LastModified Time None Recorded Concern Status LastModified by Organization Details LastModified Time None Recorded Advance Directives Directive None Recorded Payers Insurance Date Sequence Insurance Name Policy Number Policy Baker Covered Member ID Baker Member ID Guarantor Name 02/12/2019 1 [facility]: MEDICARE PPO BLUE (MEDICARE REPLACEMENT PPO) [id number] Cholo Carr [id number] Cholo Carr Notes Date Note Type Note Provider Name and Address Organization Details Recorded Time 08/30/2018 text/html He is here for bilateral facet joint injections under fluoroscopic guidance. He has stopped plavix for 7 days for the procedure. Fan Gaytan MD [address] , [address], [place], [address], [facility] 09/01/2018 11:44:27 09/26/2018 text/html He is here for a follow up after bilateral facet joint injections under fluoroscopic guidance. He reports good pain benefit which is ongoing. He states he has pain in his right low back occasionally. 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 He feels he is more active and was able to shovel snow. He has seen Dr. Coreas for a follow up after surgery and has been doing well Fan Gaytan MD [address] , [address], [place], [address], [place] [facility] 09/30/2018 10:04:34 11/30/2018 text/html He is here for a Right Sacroiliac joint injection under fluoroscopic guidance. He has stopped Plavix for 7 days for the procedure. Fan Gaytan MD [address] [facility] , [address], [place], [address], [place] [facility] 12/02/2018 09:23:30 01/16/2019 text/html He is here for a follow up after Right Sacroiliac joint injection under fluoroscopic guidance. He reports good pain benefit for one month . He states he has pain in his right low back constantly. He states working in his backyard for twenty minutes aggravates his pain. He has no radiating pain in his lower extremities. He has no history of bladder or bowel incontinence. Fan Gaytan MD [address] [facility] , [address], [place], [address], [place] [facility] 01/17/2019 08:30:53 02/15/2019 text/html He is here for a Right Sacroiliac joint injection under fluoroscopic guidance. He has stopped Plavix for 7 days for the procedure. Fan Gaytan MD [address] , [address], [place], [address], [place] [facility] 02/16/2019 16:29:42
== END 2025-06-11 11:55 | disposition home or self-care (01) ==
LOC: HO.HMGAL 11:54
PROVIDERS: PCP Internal Medicine; Visit Provider Registered Nurse Emergency
DX: J30.89 Other allergic rhinitis (principal)
CPT/HCPCS: 95117; 95165

== ENCOUNTER 2025-07-09 12:54 | Outpatient (AMB) | payer MEDICARE, SELFPAY ==
--- OUTSIDE RECORDS SUMMARY | 2025-07-09 18:43 | XMS_ITS | Continuity of Care Document ---
Author Organization [facility], Main Office Address [address] [facility] [place] [address] Care Team Providers Care Security Assurance Specialist Name Role Phone STAS PELAEZ Primary Care Provider FALLON CHAO Supervisor Polishing MAGY BASS Cdl Driver ROBERT VALDEZ Auto Porter [phone] LORAINE GRIDER Neurosurgeon NOAH TERRELL Field Foreman MARGY SORTO Internal Audit Manager WHITNEY REAL Appointment Coordinator DONAL LOEPZ Referring Provider [phone] DANIE ARREOLA Internal Audit Manager MAGY BRADFORD Referring Provider [phone] Assessment No assessment recorded. Plan of Treatment Reminders Order Date Submit Date Provider Last Modified By Organization Details Last Modified Time Details Appointments [id number] 2025 11:00A M Stas stover MD Not available Not available Not available Lab hemoglo bin A1C, fingers tick 2024 025 [email or web address] In-Office Order, Internal Use Only DO Not Attach Compendium DO Not Attach Compendium, Do Not Delete/merge, [id number] 04/10/2025 13:21:20 CMP, serum or plasma 2024 025 ANTONINA [facility] (Centralized Electronic Ordering - All Locations), Patient Can Go To The Location Of Their Choice, [id number] 04/11/2025 06:08:08 Referral None recorde d. Procedures None recorde d. Surgeries None recorde d. Imaging US, breast, unilate ral, complet e - Itchy left nipple and small mass w/o pain. R/o breast tissue. 2024 025 eryn [facility], [address], [place], [address], 04/24/2025 10:08:26 Medication Orders memanti ne 10 mg tablet 2024 025 [facility] #[id number], [address] [place] [address], [place], [address], 04/10/2025 12:07:36 Patient TargetsNo targets recorded. Patient Instructions Encounter Date Encounter Id Patient Instructions Last Modified By Organization Details Last Modified Time 04/10/2025 [id number] Medications (OTC , herbal therapies, supplements) reviewed and reconciled with patient and or caregiver, including potential side effects, drug interactions, instructions, and the consequences of not taking medication. Reviewed potential barriers to medication adherence, such as side effects from medication or cost of medication. Not available 04/10/2025 11:28:13 Reason for Referral None Reported. Results Created Date Observation Date Name Description Value Unit Range Abnormal Flag Note LastModifiedBy Organization Detail LastModifiedTime 04/10/2004/10/2025 CMP14 +EGFR glucose 135 mg/dL 70-99 above high normal Not Available [facility] ([facility]) [address] [place], [address], 04/11/2025 06:08:08 04/10/2004/10/2025 CMP14 +EGFR BUN 27 mg/dL 8-27 normal Not Available [facility] ([facility]) [address] [place], [address], 04/11/2025 06:08:08 04/10/2004/10/2025 CMP14 +EGFR creatinine 1.17 mg/dL 0.76-1 .27 normal Not Available [facility] ([facility]) [address] [place], [address], 04/11/2025 06:08:08 04/10/20 25 04/10/2025 CMP14 +EGFR eGFR 63 mL/mi n/1.7 3 >59 normal Not Available [facility] ([facility]) [address] [facility], [place], [address], 04/11/2025 06:08:08 04/10/20 25 04/10/2025 CMP14 +EGFR BUN/creatini ne ratio 23 10-24 normal Not Available [facility] ([facility]) [address] [facility] [place], [address], 04/11/2025 06:08:08 04/10/20 25 04/10/2025 CMP14 +EGFR sodium 144 mmol/ L 134-14 4 normal Not Available [facility] ([facility]) [address] [place], [address], 04/11/2025 06:08:08 04/10/20 25 04/10/2025 CMP14 +EGFR potassium 4.1 mmol/ L 3.5-5. 2 normal Not Available [facility] ([facility]) [address] [place], [address], 04/11/2025 06:08:08 04/10/20 25 04/10/2025 CMP14 +EGFR chloride 106 mmol/ L 96-106 normal Not Available [facility] ([facility]) [address] [place], [address], 04/11/2025 06:08:08 04/10/20 25 04/10/2025 CMP14 +EGFR carbon dioxide, total 22 mmol/ L 20-29 normal Not Available [facility] ([facility]) [address] [place], [address], 04/11/2025 06:08:08 04/10/20 25 04/10/2025 CMP14 +EGFR calcium 9.8 mg/dL 8.6-10 .2 normal Not Available [facility] ([facility]) [address] [place], [address], 04/11/2025 06:08:08 04/10/2004/10/2025 CMP14 +EGFR protein, total 6.0 g/dL 6.0-8. 5 normal Not Available [facility] ([facility]) [address] [place], [address], 04/11/2025 06:08:08 04/10/2004/10/2025 CMP14 +EGFR albumin 4.4 g/dL 3.8-4. 8 normal Not Available [facility] ([facility]) [address] [place], [address], 04/11/2025 06:08:08 04/10/2004/10/2025 CMP14 +EGFR globulin, total 1.6 g/dL 1.5-4. 5 Not Available [facility] ([facility]) [address] [place], [address], 04/11/2025 06:08:08 04/10/2004/10/2025 CMP14 +EGFR bilirubin, total 0.7 mg/dL 0.0-1. 2 normal Not Available [facility] ([facility]) [address] [facility] [place], [address], 04/11/2025 06:08:08 04/10/2004/10/2025 CMP14 +EGFR alkaline phosphatase 62 IU/L 47-123 normal Ple ase note refer ence inter david stafford e Not Available [facility] ([facility]) [address] [facility] [place], [address], 04/11/2025 06:08:08 04/10/2004/10/2025 CMP14 +EGFR AST (SGOT) 36 IU/L 0-40 normal Not Available [facility] ([facility]) [address] [facility], [place], [address], 04/11/2025 06:08:08 04/10/20 25 04/10/2025 CMP14 +EGFR ALT (SGPT) 30 IU/L 0-44 normal Not Available [facility] ([facility]) [address] [facility], [place], [address], 04/11/2025 06:08:08 04/10/20 25 04/10/2025 hemog lobin A1C, finge rstic k A1C 6.2 % 4-6 abnormal Not Available In-Office Order Internal Use Only DO Not Attach Compendium DO Not Attach Compendium, Do Not Delete/merge, [id number] 04/10/2025 11:28:24 05/07/20 25 05/07/2025 mm digit al mammo bilat eral Bilate [...] appear ance of gyneco mastia . 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 Recomm endati on: Clinic al follow -up. Examin ation [id number] and [id number]. BI-RAD S 2 benign findin gs. Letter L3. Thank you for allowi ng me to partic ipate in the care of this patien t. WSN: [id number] Orderi ng Physic sherrie: Stas Alan Dictat ed By: Yong Kitchen MD Dictat ed Date/T ryne: 4:02 pm Review ed By: Yong Kitchen MD Signed By: Yong Kitchen MD Signed Date/T ryne: 4:02 pm Transc ribed By: WENDY Transc riptio n Date/T ryne: 3:48 pm Birads : Patien t Class: Outpat ient [email or web address] (Outpt Imaging) [address], [place], [address], 05/22/2025 11:24:46 05/08/2005/07/2025 US, breas t, limit ed A D D E N D U M as of: [id number] Histor y: Palpab le left breast mass. WSN: [id number] Orderi ng Physic sherrie: Stas Alan Dictat ed By: Yong Kitchen MD Dictat ed Date/T ryne: 10:39 a Review ed [...] appear ance of gyneco mastia . 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 Recomm endati on: Clinic al follow -up. Examin ation [id number] and G0204. BI-RAD S 2 benign findin gs. Letter L3. Thank you for gabriellei ng me to partic ipate in the care of this patien t. WSN: [id number] Orderi ng Physic sherrie: Stas Alan Dictat ed By: Yong Kitchen MD Dictat ed Date/T ryne: 4:02 pm Review ed By: Yong Kitchen MD Signed By: Yong Kitchen MD Signed Date/T ryne: 4:02 pm Transc ribed By: WENDY Transc ribed Date/T ryne: 3:48 pm Patien t Class: Outpat [facility] (Outpt Imaging) [address] [place], [address], 05/24/2025 08:52:46 Result Notes None recorded. 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 NELIDA Velazquez, [facility] 5 11:28:46 Renal disorder due to type 2 diabetes mellitus 387447170 Active NELIDA Mena, [facility] 3 09:16:07 [facility] hyperten marnie 21518254 Completed 10/14/2016 Removal Reason: Not Specific Jaimie Calabrese yamila [facility] 7 11:19:03 Pure hypercho lesterol emia 254291800 Completed 07/08/2016 Stas Pelaez MD [address] [facility] [address], [place], [address] , [facility] [place] 6 11:36:23 Inflamma tory polyarth ropathy 953537164 Active NELIDA Mena, [facility] 3 09:16:07 Malignan t neoplasm of prostate 231309209 Active [place] 6, prostate ctomy. Andria Hammer MA null, [facility] 3 09:16:07 Nocturia 986766782 Active Andria Hammer MA null, [facility] 3 09:16:07 Pain in toe 737161413 Completed 12/02/2023 Inez cobos MA null, [facility] 4 09:52:02 Disorder of vein Completed 200702/06/2014 DATE: 06/2008; RECORDED 04/21/20 12 10:11AM BY STAS ALCARAZ MD, ANNOTATI ON/ADDEN DUM Stas Pelaez MD [address] [address], [place], [address] , [facility] 6 09:07:17 Disorder of vein Completed 200703/01/2014 DATE: 06/2008; RECORDED 04/21/20 12 10:11AM BY STAS ALCARAZ MD, ANNOTATI ON/ADDEN DUM Stas Pelaez MD [address] [address], [place], [address] , [facility] 6 09:07:17 Disorder of vein Completed 200703/02/2014 DATE: 06/2008; RECORDED 04/21/20 12 10:11AM BY STAS ALCARAZ MD, ANNOTATI ON/ADDEN DUM Stas Pelaez MD [address] [address], [place], [address] , [facility] 6 09:07:17 Chest pain 01489399 Completed 201102/06/2014 RECORDED 04/21/20 12 9:26AM BY LAZARUS BONDS I, ANNOTATI ON/ADDEN DUM Bebeto Kelley MA null, [facility] 3 08:29:01 Screenin g for malignan t neoplasm of colon Completed 201102/06/2014 RECORDED 04/21/20 12 9:26AM BY LISETTE DAVENPORT/CHIDI Pelaez MD [address], [place], [address] , [facility] 6 09:07:17 Cough 13605042 Completed 201102/06/2014 RECORDED 04/21/20 12 9:26AM BY LISETTE DAVENPORT/CHIDI Pelaez MD [address], [place], [address] , [facility] 6 09:07:16 Hypercho lesterol emia 93557379 Completed 201102/06/2014 RECORDED 04/21/20 12 9:26AM BY LISETTE DAVENPORT ON/CHIDI Pelaez MD [address], [place], [address] , [facility] 6 09:07:16 Pure hypergly ceridemi a 966855253 Completed 201102/06/2014 RECORDED 04/21/20 12 9:27AM BY LISETTE DAVENPORT/CHIDI Pelaez MD [address], [place], [address] , [facility] 6 09:07:16 Sciatica 61035153 Completed 201102/06/2014 RECORDED 04/21/20 12 9:26AM BY LISETTE DAVENPORT/CHIDI Pelaez MD [address], [place], [address] , [facility] 6 09:07:16 Dyspnea 190533079 Completed 201102/06/2014 RECORDED 04/21/20 12 9:26AM BY LISETTE DAVENPORT ON/ADDEN DUM Inez cobos MA null, [facility] 7 13:48:20 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, cornea, retina and choroid 968133465 Completed 201102/06/2014 STORY: DIAGNOSE D AND TREATED 2006; RECORDED 04/21/20 12 9:27AM BY LISETTE DAVENPORT ON/ADDEN DUM Stas Pelaez MD [address], [place], [address] , [facility] 6 09:07:16 Chest pain 26410939 Completed 201103/01/2014 RECORDED 04/21/20 12 9:26AM BY LISETTE DAVENPORT ON/ADDEN DUM Bebeto Kelley MA null, [facility] 3 08:29:01 Screenin g for malignan t neoplasm of colon Completed 201103/01/2014 RECORDED 04/21/20 12 9:26AM BY LISETTE DAVENPORT/CHIDI Pelaez MD [address], [place], [address] , [facility] 6 09:07:17 Cough 64258229 Completed 201103/01/2014 RECORDED 04/21/20 12 9:26AM BY LISETTE DAVENPORT/CHIDI Pelaez MD [address] [facility], [place], [address] , [facility] 6 09:07:16 Hypercho lesterol emia 65086574 Completed 201103/01/2014 RECORDED 04/21/20 12 9:26AM BY LISETTE DAVENPORT/CHIDI Pelaez MD [address], [place], [address] , [facility] 6 09:07:16 Pure hypergly tonmi a 649373413 Completed 201103/01/2014 RECORDED 04/21/20 12 9:27AM BY LISETTE DAVENPORT ON/CHIDI Pelaez MD [address] [facility] [address], [place], [address] , [facility] 6 09:07:16 Sciatica 63666894 Completed 201103/01/2014 RECORDED 04/21/20 12 9:26AM BY LISETTE DAVENPORT ON/CHIDI Pelaez MD [address] [facility] [address], [place], [address] , [facility] 6 09:07:16 Dyspnea 560661818 Completed 201103/01/2014 RECORDED 04/21/20 12 9:26AM BY LISETTE DAVENPORT ON/CHIDI cobos MA null, [facility] 7 13:48:20 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, cornea, retina and choroid 364710325 Completed 201103/01/2014 STORY: DIAGNOSE D AND TREATED 2006; RECORDED 04/21/20 12 9:27AM BY LISETTE DAVENPORT ON/CHIDI Pelaez MD [address] [facility] [address], [place], [address] , [facility] 6 09:07:16 Chest pain 97941081 Completed 201103/02/2014 RECORDED 04/21/20 12 9:26AM BY LISETTE DAVENPORT ON/ADDEN DUM Bebeto Kelley MA null, [facility] 3 08:29:01 Screenin g for malignan t neoplasm of colon Completed 201103/02/2014 RECORDED 04/21/20 12 9:26AM BY LISETTE DAVENPORT ON/ADDEN WILLIS Pelaez MD [address] [facility] [address], [place], [address] , [facility] 6 09:07:17 Cough 03532288 Completed 201103/02/2014 RECORDED 04/21/20 12 9:26AM BY LISETTE DAVENPORT ON/ADDEN DUM Stas Pelaez MD [address] [facility] [address], [place], [address] , [facility] 6 09:07:16 Hypercho lesterol emia 40668137 Completed 201103/02/2014 RECORDED 04/21/20 12 9:26AM BY LISETTE DAVENPORT ON/ADDEN WILLIS Pelaez MD [address] [facility] [address], [place], [address] , [facility] 6 09:07:16 Pure hypergly ceridemi a 260089160 Completed 201103/02/2014 RECORDED 04/21/20 12 9:27AM BY LISETTE DAVENPORT ON/ADDEN DUM Stas Pelaez MD [address] [address], [place], [address] , [facility] 6 09:07:16 Sciatica 05428359 Completed 201103/02/2014 RECORDED 04/21/20 12 9:26AM BY LISETTE DAVENPORT ON/ADDEN DUM Stas Pelaez MD [address] [facility] [address], [place], [address] , [facility] 6 09:07:16 Dyspnea 730508500 Completed 201103/02/2014 RECORDED 04/21/20 12 9:26AM BY LISETTE DAVENPORT ON/ADDREN cobos MA null, [facility] 7 13:48:20 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, cornea, retina and choroid 159054627 Completed 201103/02/2014 STORY: DIAGNOSE D AND TREATED 2006; RECORDED 04/21/20 12 9:27AM BY LISETTE DAVENPORT ON/CHIDI Pelaez MD [address] [facility] [address], [place], [address] , [facility] 6 09:07:16 Hyperten sive disorder 56726555 Completed 201102/13/2021 Stas Pelaez MD [address] [facility] [address], [place], [address] , [facility] 1 10:27:48 Diabetes mellitus 81956303 Completed 201101/08/2021 Stas Pelaez MD [address] [facility] [address], [place], [address] , [facility] 2 10:51:06 Hyperten sive disorder 42437173 Active 2011 Not Available [facility] 2 09:44:50 Influenz a vaccine needed 36590815725 06 Completed 201102/06/2014 RECORDED 07/22/20 12 11:42AM BY TERRIE SEGUNDO MA, ANNOTATI ON/CHIID Pelaez MD [address] [facility] [address], [place], [address] , [facility] 6 09:07:16 Renewal of prescrip tion Completed 201102/06/2014 RECORDED 07/22/20 12 11:42AM BY TERRIE SEGUNDO MA, ANNOTATI ON/CHIDI Pelaez MD [address] [facility] [address], [place], [address] , [facility] 6 09:07:17 Influenz a vaccine needed 45407410421 06 Completed 201103/01/2014 RECORDED 07/22/20 12 11:42AM BY TERRIE SEGUNDO MA, ANNOTATI ON/CHIDI Pelaez MD [address] [facility] [address], [place], [address] , [facility] 6 09:07:16 Renewal of prescrip tion Completed 201103/01/2014 RECORDED 07/22/20 12 11:42AM BY TERRIE SEGUNDO MA, ANNOTATI ON/CHIDI Pelaez MD [address] [facility] [address], [place], [address] , [facility] 6 09:07:17 Influenz a vaccine needed 09958573047 06 Completed 201103/02/2014 RECORDED 07/22/20 12 11:42AM BY TERIRE SEGUNDO MA, ANNOTATI ON/CHIDI Pelaez MD [address] [facility] [address], [place], [address] , [facility] 6 09:07:16 Renewal of prescrip tion Completed 201103/02/2014 RECORDED 07/22/20 12 11:42AM BY TERRIE SEGUNDO MA, ANNOTATI ON/CHIDI Pelaez MD [address] [facility] [address], [place], [address] , [facility] 6 09:07:17 Rheumato id arthriti s 21335765 Active [address] Chao ; on methotre xate; hydroxyc hloroqui ne and predniso ne. NELIDA Velazquez, [facility] 5 11:28:46 Low back pain 089477039 Active 2012 Seen at [facility]; will have MRI and then injectio n. Also seen a Pain Mgmt and had help with injectio n under flurosco py. Andria Hammer MA [facility] 3 09:16:07 Active or passive immuniza tion Completed 201202/06/2014 RECORDED 07/28/19 13 3:24PM BY STAS ALCARAZ MD, OFFICE VISIT Stas Pelaez MD [address], [place], [address] , [facility] 6 09:07:16 Active or passive immuniza tion Completed 201203/01/2014 RECORDED 07/28/19 13 3:24PM BY STAS ALCARAZ MD, OFFICE VISIT Stas Pelaez MD [address] [facility] [address], [place], [address] , [facility] 6 09:07:17 Active or passive immuniza tion Completed 201203/02/2014 RECORDED 07/28/19 13 3:24PM BY STAS ALCARAZ MD, OFFICE VISIT Stas Pelaez MD [address] [facility] [address], [place], [address] , [facility] 6 09:07:17 Divertic ulitis of colon 715820729 Completed 201202/06/2014 RECORDED 08/11/19 13 9:58AM BY STAS ALCARAZ MD, ANNOTATI ON/ADDEN DUM Stas Pelaez MD [address], [place], [address] , [facility] 6 09:07:16 Divertic ulitis of colon 343009982 Completed 201203/01/2014 RECORDED 08/11/19 13 9:58AM BY STAS ALCARAZ MD, ANNOTATI ON/ADDEN DUM Stas Pelaez MD [address] [facility] [address], [place], [address] , [facility] 6 09:07:16 Divertic ulitis of colon 602362170 Completed 201203/02/2014 RECORDED 08/11/19 13 9:58AM BY STAS ALCARAZ MD, LISETTE ON/ADDEN WILLIS Pelaez MD [address] [facility] [address], [place], [address] , [facility] 6 09:07:16 Administ ration of diphther ia and tetanus vaccine Completed 201202/06/2014 RECORDED 08/13/19 13 9:50AM BY LISETTE DAVENPORT ON/ADDEN WILLIS Pelaez MD [address] [facility] [address], [place], [address] , [facility] 6 09:07:17 Administ ration of diphther ia and tetanus vaccine Completed 201203/01/2014 RECORDED 08/13/19 13 9:50AM BY LISETTE DAVENPORT ON/ WILLIS Pelaez MD [address] [facility] [address], [place], [address] , [facility] 6 09:07:17 Administ ration of diphther ia and tetanus vaccine Completed 201203/02/2014 RECORDED 08/13/19 13 9:50AM BY LISETTE DAVENPORT ON/CHIDI Pelaez MD [address] [facility] [address], [place], [address] , [facility] 6 09:07:17 Shoulder joint pain 597221913 Completed 201202/06/2014 IMPRESSI ON: DOUBT PMR GIVEN THE LACK OF OTHER SX. PROBABLE TENDINIT IS/BURSI TIS. HE MAY BENEFIT FROM INJECTIO N.; RECORDED 11/22/19 13 9:39AM BY LISETTE DAVENPORT ON/ADDREN Pelaez MD [address] [facility] [address], [place], [address] , [facility] 6 09:07:16 Shoulder joint pain 959955072 Completed 201203/01/2014 IMPRESSI ON: DOUBT PMR GIVEN THE LACK OF OTHER SX. PROBABLE TENDINIT IS/BURSI TIS. HE MAY BENEFIT FROM INJECTIO N.; RECORDED 11/22/19 13 9:39AM BY LISETTE DAVENPORT/CHIDI Pelaez MD [address] [address], [place], [address] , [facility] 6 09:07:16 Shoulder joint pain 234404741 Completed 201203/02/2014 IMPRESSI ON: DOUBT PMR GIVEN THE LACK OF OTHER SX. PROBABLE TENDINIT IS/BURSI TIS. HE MAY BENEFIT FROM INJECTIO N.; RECORDED 11/22/19 13 9:39AM BY LISETTE DAVENPORT/CHIDI Pelaez MD [address] [address], [place], [address] , [facility] 6 09:07:16 Dermatop hytosis of scalp or nava Completed 201202/06/2014 IMPRESSI ON: ADVISED TO USE OTC CLOTRIMA ZOLE AND TO SHOW HIS DERMATOL OGIST, DR BASS WHO HE WILL BE SEEING IN 3 WEEKS IF IT IS STILL PRESENT. ; RECORDED 02/02/20 13 11:43AM BY LISETTE DAVENPORT/CHIDI Pelaez MD [address] [address], [place], [address] , [facility] 6 09:07:16 Dermatop hytosis of scalp or nava Completed 201203/01/2014 IMPRESSI ON: ADVISED TO USE OTC CLOTRIMA ZOLE AND TO SHOW HIS DERMATOL OGIST, DR BASS WHO HE WILL BE SEEING IN 3 WEEKS IF IT IS STILL PRESENT. ; RECORDED 02/02/20 13 11:43AM BY LISETTE DAVENPORT/CHIDI Pelaez MD [address] [facility] [address], [place], [address] , [facility] 6 09:07:16 Dermatop hytosis of scalp or nava Completed 201203/02/2014 IMPRESSI ON: ADVISED TO USE OTC CLOTRIMA ZOLE AND TO SHOW HIS DERMATOL OGIST, DR BASS WHO HE WILL BE SEEING IN 3 WEEKS IF IT IS STILL PRESENT. ; RECORDED 02/02/20 13 11:43AM BY LISETTE DAVENPORT ON/CHIDI Pelaez MD [address] [facility] [address], [place], [address] , [facility] 6 09:07:16 Hydronep hrosis 05003625 Active [address] Duncan pt will make a f/u with urology Andria Hammer MA [facility] 3 09:16:07 Laborato ry procedur e performe d 938739668 Completed 201302/06/2014 RECORDED 08/09/19 14 1:05PM BY LISETTE DAVENPORT/CHIDI Pelaez MD [address] [facility] [address], [place], [address] , [facility] 6 09:07:17 Overweig ht 781158070 Completed 201302/06/2014 RECORDED 11/09/19 14 9:28AM BY LISETTE DAVENPORT/CHIDI Pelaez MD [address] [facility] [address], [place], [address] , [facility] 6 09:07:16 Tobacco user [id number] Completed 201302/06/2014 RECORDED 11/09/19 14 9:28AM BY LISETTE DAVENPORT/CHIDI Pelaez MD [address] [facility] [address], [place], [address] , [facility] 6 09:07:16 History of clinical finding in subject 485084701 Completed 201303/21/2014 RECORDED 11/09/19 14 9:28AM BY LISETTE DAVENPORT ON/CHIDI Pelaez MD [address] [facility] [address], [place], [address] , [facility] 6 09:07:17 Adult health examinat ion Completed 201302/06/2014 RECORDED 11/09/19 14 9:28AM BY LISETTE DAVENPORT ON/CHIDI Pelaez MD [address] [facility] [address], [place], [address] , [facility] 6 09:07:17 Overweig 075577339 Completed 201303/01/2014 RECORDED 11/09/19 14 9:28AM BY LISETTE DAVENPORT ON/CHIDI Pelaez MD [address] [facility] [address], [place], [address] , [facility] 6 09:07:16 Tobacco user [id number] Completed 201303/01/2014 RECORDED 11/09/19 14 9:28AM BY LISETTE DAVENPORT ON/CHIDI Pelaez MD [address] [facility] [address], [place], [address] , [facility] 6 09:07:16 Adult health examinat ion Completed 201303/01/2014 RECORDED 11/09/19 14 9:28AM BY LISETTE DAVENPORT ON/CHIDI Pelaez MD [address] [facility] [address], [place], [address] , [facility] 6 09:07:17 [facility] [facility] [id number] Completed 201303/02/2014 RECORDED 11/09/19 14 9:28AM BY LISETTE DAVENPORT ON/CHIDI Pelaez MD [address], [place], [address] , [facility] 6 09:07:16 Tobacco user [id number] Completed 201303/02/2014 RECORDED 11/09/19 14 9:28AM BY LISETTE DAVENPORT ON/CHIDI Pelaez MD [address], [place], [address] , [facility] 6 09:07:16 Adult health examinat ion Completed 201303/02/2014 RECORDED 11/09/19 14 9:28AM BY LISETTE DAVENPORT ON/CHIDI Pelaez MD [address], [place], [address] , [facility] 6 09:07:17 Laborato ry procedur e performe d [id number] Completed 201303/21/2014 RECORDED 11/24/19 14 10:44AM BY LUKE NOLEN, LAB REQ Stas Pelaez MD [address], [place], [address] , [facility] 6 09:07:17 Hyperlip idemia 66455980 Active 2015 Not Available [facility] 2 09:44:50 Dyspnea 462148667 Active 2016 NELIDA Mena, [facility] 3 09:16:07 Hyperten sive renal disease 64830038 Active 2016 NELIDA Mena, [facility] 3 09:16:07 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 Had a cardiac w/u September 2020 which was negative for ischemia . Also no signific ant progress ion on cath April 2024 NELIDA Velazquez, [facility] 5 11:28:46 Chest pain 12713742 Completed 201709/02/2022 Admitted overnikareem t to [facility] and ruled out. NELIDA Mark, [facility] 3 08:29:01 Insomnia 857918018 Active 2017 NELIDA Mena, [facility] 3 09:16:07 Eczema 09339156 Active 2017 NELIDA Mena, [facility] 3 09:16:08 Neuropat hy due to diabetes mellitus 419272138 Active 2017 Not Available [facility] 2 09:44:50 Inflamma tion of sacroili ac joint 22627300 Active 2017 Followed by Pain Mgmt; right sided NELIDA Mena, [facility] 3 09:16:08 Basal cell carcinom a of skin 883595045 Active 2017 NELIDA Mena, [facility] 3 09:16:07 Spinal stenosis of lumbar region 92924719 Active 2017 Schedule d for surgery with NELIDA Oneal, [facility] 5 11:28:45 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 Treated at [facility] NELIDA Mena, [facility] 3 09:16:07 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 65078068607 9100 Completed 201902/13/2021 Stas Pelaez MD [address], [place], [address] , [facility] 1 10:27:38 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 69999248531 9100 Active 2019 Not Available [facility] 2 09:44:50 Squamous cell carcinom a of skin 507523773 Active 2019 NELIDA Mena, [facility] 3 09:16:07 Type 2 diabetes mellitus 44192414 Completed 202001/08/2021 Rochelle Tong PA-C [address], [place], [address] , [facility] 1 10:58:00 Major depressi ve disorder 033160798 Active 2020 NELIDA Mena, [facility] 3 09:16:07 Renal disorder due to type 1 diabetes mellitus 300438985 Completed 202001/08/2021 Stas Pelaez MD [address], [place], [address] , [facility] 2 10:48:06 Hyperten marnie monitori ng status 165876937 Active 2021 disenrol led NELIDA Mena, [facility] 3 09:16:07 Expressi ve language disorder 837629481 Active 2021 NELIDA Mena, [facility] 3 09:16:07 History of malignan t neoplasm of eye 15343542809 9106 Active 2021 NELIDA Mena, [facility] 3 09:16:07 Chronic kidney disease stage 3B 744083127 Active 2021 NELIDA Mena, [facility] 3 09:16:08 History of SARS-CoV -2 30865515009 7571092 Active 2021 Also tested positive in July. Took paxlovid . 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 As of 2024 this has been failing and another procedur e was not approved by his insuranc e. Stas Pelaez MD [address] [facility] [address], [place], [address] , [facility] 5 08:22:08 Glaucoma suspect 925586088 Active 2022 Stas Pelaez MD [address], [place], [address] , [facility] 3 14:44:21 Mild neurocog nitive disorder 285878498 Active 2023 Seen by memory disorder s clinic July 2023. Recommen ded aricept. Will be followed every 6 months. Stas Pelaez MD [address], [place], [address] , [facility] 4 10:43:14 COVID-19 154614035 Completed 202312/02/2023 Inez Garcia ttos, NELIDA null, [facility] 4 14:25:14 Right bundle branch block 14326320 Active 2023 Inez Garcia ttcharline, NELIDA null, [facility] 4 09:51:00 COVID-19 715685760 Completed 202301/13/2024 Inez Garcia ttcharline, NELIDA null, [facility] 4 14:25:14 Prolonge d QT interval 310049792 Active 2023 Zach Espinoza, [facility] [address], [place], [address] , [facility] 4 10:08:16 Hypokale jaki 90328665 Active 2023 Zach Espinoza, [facility] [address], [place], [address] , [facility] 4 10:19:28 Hypomagn esemia 417391941 Active 2023 Zach Espinoza, [facility] [address], [place], [address] , [facility] 4 09:11:21 Minimal cognitiv e impairme nt 986415133 Active 2023 Stas Pelaez MD [address], [place], [address] , [facility] 4 08:18:00 Nonische favian congesti ve cardiomy opathy 49556335833 4 Active 2024 EF 40-45 % December 2023 NYHA II Stas Pelaez MD [address] [facility] [address], [place], [address] , [facility] 15:12:42 Problem Notes None recorded. Procedures Surgical History Date Name Laterality Status Provider Name and Address Organization Details Recorded Time 07/05/20 diabetic retinopathy screening completed Carmen Ovalle [facility] 07/07/2024 09:12:31 04/10/20 24 [facility] 08:19:41 01/19/20 24 Echo transthoracic completed Carmen [facility] 01/24/2024 11:20:55 10/14/19 24 Diabetic Foot Exam (Monofilament) completed Stas Pelaez MD [address] [facility] [address], [place], [address], [facility] 10/14/2023 19:20:00 08/13/19 24 lumbar epidural steroid injection [facility] 08/13/2023 09:37:49 06/29/20 23 Diabetic Foot Exam (Monofilament) completed Stas Pelaez MD [address] [facility] [address], [place], [address], [facility] 06/30/2023 17:53:16 11/11/19 23 shoulder injection completed Carmen Ovalle [facility] 11/11/2022 08:43:04 09/24/19 23 injection into lumbar epidural space completed Carmen Ovalle [facility] 09/28/2022 09:37:54 09/11/19 23 Cardiovascular stress test completed Carmen Ovalle [facility] 09/17/2022 11:02:40 10/24/19 22 Diabetic Foot Exam (Monofilament) completed Andria Hammer MA [facility] 10/23/2021 11:16:59 07/24/20 21 Egd biopsy single/multiple completed Stas Pelaez MD [address], [place], [address], [facility] 08/12/2021 16:56:25 07/24/20 21 Colonoscopy with biopsy completed Stas Pelaez MD [address], [place], [address], [facility] 08/12/2021 16:57:51 03/25/20 21 Diabetic Foot Exam (Monofilament) completed Nohemi Bazan MA [facility] 03/25/2021 11:13:46 01/09/20 21 Diabetic Foot Exam (Monofilament) completed Terrie Segundo MA [facility] 01/08/2021 10:23:01 08/13/19 21 Diabetic Foot Exam (Monofilament) completed Stas Pelaez MD [address] [facility] [address], [place], [address], [facility] 08/13/2020 12:09:58 04/24/20 20 Diabetic Foot Exam (Monofilament) completed Lilibeth Monroy MA [facility] 04/24/2020 09:52:20 04/23/20 20 excision of scalp mass completed Taneshaalcides Cohen [facility] 04/24/2020 09:44:15 04/23/20 20 local advancement flap completed Tanesha Cohen [facility] 04/24/2020 09:42:54 04/23/20 20 chest wall excision completed Taneshaalcides Cohen [facility] 04/24/2020 09:44:07 04/23/20 20 local advancement flap completed [facility] Noel [facility] 04/24/2020 09:49:10 01/23/20 20 Six-Item Cognitive Test completed Lazarus Reynolds [facility] 01/23/2020 09:36:41 04/24/20 19 Diabetic Foot Exam (Monofilament) completed Lazarus Reynolds [facility] 04/24/2019 13:22:41 02/16/20 19 injection completed Rahel Nolen [facility] 02/17/2019 11:21:50 01/21/20 19 Mini-Cog Test completed Aggie Serra MA [facility] 01/20/2019 11:03:37 10/06/19 19 Diabetic Foot Exam (Monofilament) completed Terrie Segundo MA [facility] 10/05/2018 12:57:34 06/14/20 18 Tte w/doppler complete completed Jacquelin Kurtz [facility] 06/17/2018 13:46:06 05/23/20 18 primary transforaminal interbody fusion of joint of lumbar spine completed Rahel Nolen [facility] 05/27/2018 11:57:33 03/07/20 18 Diabetic Foot Exam (Monofilament) completed Aggie Serra MA [facility] 03/07/2018 10:50:50 02/16/20 18 Njx interlaminar lmbr/sac completed Rahel Nolen [facility] 02/18/2018 15:41:25 12/09/19 18 Diabetic Foot Exam (Monofilament) completed Stas Pelaez MD [address] [facility] [address] [facility], [place], [address], [facility] 12/08/2017 13:04:41 08/24/19 18 Excision of Melanoma completed Orquidea Thomas [facility] 09/11/2017 11:27:03 05/26/20 17 Coronary artery angio s&i completed Stas Pelaez MD [address] [facility] [address] [facility], [place], [address], [facility] 05/27/2017 07:01:15 06/10/20 16 Hydrocortisone acetate inj completed Lazarus Reynolds [facility] 06/22/2016 16:22:06 10/16/19 16 Advanced Care Planning completed Lazarus Reynolds [facility] 10/16/2015 11:04:00 03/27/20 15 Mini-Cog Test completed Lazarus Reynolds [facility] 03/27/2015 13:22:16 09/01/20 11 Orthopedic Surgery completed Lazarus Reynolds [facility] 10/16/2015 10:51:26 11/24/19 07 Joint Replacement completed Lazarus Reynolds [facility] 10/16/2015 10:51:26 07/26/19 04 Prostate Surgery completed Lazarus Reynolds [facility] 10/16/2015 10:51:26 07/26/19 03 Vasectomy completed Stas Pelaez MD [address], [place], [address], [facility] 04/02/2014 09:14:24 04/25/19 90 Other completed Lazarus Reynolds [facility] 10/16/2015 10:51:26 Other completed Lazarus Reynolds [facility] 10/16/2015 10:51:26 Other completed Radha Wilson [facility] 03/21/2014 08:21:55 Imaging Results None recorded. Procedure Notes None recorded. Medical Equipment None Reported. Allergies Allergen ID Allergen Name Allergen Category Reaction Reaction Severity Criticality Documentation Date Start Date Code Code System Note Provider Name and Address Organization Details Recorded Time 73606 lisinopri l medicatio n cough Not available Not available 02/26/20172013 48894 [facility] 11:28:38 96229 metformin medicatio n abdominal pain moderate Not available 01/08/2021 6809 RxNorm Rochelle Tong PA-C [address] [facility] [address], [place], [address], [facility] 1 11:05:54 3633 Product containin g angiotens in-conver ting enzyme inhibitor (product) medicatio n cough Not available Not available 02/06/20142013 28757 009 SNOMED NELIDA Davila [facility] 1 10:23:34 Medications Name Sig Start Date [...] DAILY active RECORDED 07/16/20 11 11:00AM BY STAS ALCARAZ MD, LISETTE ON/ADDEN DUM; Not Available Not Available Not [...] 02/01 completed RECORDED 02/02/20 13 11:51AM BY LISETTE DAVENPORT ON/CHIDI PEDRO; Not Available Not Available Not Available cyanocoba [...] 90 DAYS, FOR HIGH BLOOD PRESSURE . 2024 active Not Available Not Available Not Avai lable ciproflox acin 500 mg tablet TAKE 1 [...] 08/09 completed RECORDED 08/09/19 14 1:39PM BY STAS ALCARAZ MD, ANNOTATI ON/ADDEN DUM; Not Available Not Available Not Available oxycodone -acetamin ophen 5 mg-325 mg tablet EVERY EIGHT HOURS, NEEDED 09/08 completed RECORDED 09/21/19 13 3:40PM BY STAS ALCARAZ MD, MEDICATI ON AUTO-LYUDMILA CTIVATIO N; Not Available Not Available Not Available ofloxacin 0.3 % ear drops Instill 10 drops every day by otic route as directed for 10 days. 10/09 completed Not Available Not Available Not Available Fluticaso ne Propionat e (Inhal) 50 mcg/BLIST inhl powd EACH NOSTRIL DAILY 08/15 completed RECORDED 09/28/19 12 8:09AM BY STAS ALCARAZ MD, MEDICATI ON AUTO-LYUDMILA CTIVATIO N; Not Available Not Available Not Available prednisol one acetate 1 % eye drops,[facility] LOCATION : LEFT EYE. ONE DROP TO [...] 06/09 completed RECORDED 06/09/20 11 8:47AM BY STAS ALCARAZ MD, ANNOTATI ON/ADDREN DUM; Not Available Not Available Not Available [...] DAYS 08/26 completed Not safe in the [facility] [address]. Not Available Not Available Not Available furosemid [...] 02/20 completed RECORDED 02/21/20 13 2:16PM BY STAS ALCARAZ MD, ANNOTATI ON/CIHDI PEDRO; Not Available Not Available Not Available glipizide [...] 09/02 completed RECORDED 09/02/19 14 3:17PM BY STAS ALCARAZ MD, LISETTE ON/ DUM; Not Available Not Available Not [...] DAILY active RECORDED 02/20/20 11 2:07PM BY STAS ALCARAZ MD, LISETTE ON/ DUM; Not Available Not Available Not Available sitaglipt in phosphate 25 mg tablet DAILY 2013 active RECORDED 09/05/19 14 4:36PM BY STAS ALCARAZ MD, LISETTE ON/ DUM; Not Available Not Available Not Available fenofibra te 40 mg tablet 01/07 completed Not Available Not Available Not Available folic acid-vit B6-vit B12 2.2 mg-25 mg-1.3 mg tablet DAILY active RECORDED 10/12/19 12 11:29AM BY STAS ALCARAZ MD, ANNOTATI ON/CHIDI PEDRO; Not Available Not Available Not Available glipizide [...] Available Not Available Not Available Fluzone High-Dose 4117-1700 (PF) 180 mcg/0.5 mL intramusc ular syringe [...] (BMI) Body weight Heart rate Oxygen saturation Body temperature Systolic And Diastolic Provider Name and Address Organization Details Last Updated DateTime 5 175.26 cm 21.9 kg/m2 26998.6 7 g 66 /min 96 % 97.6 [degF] 124/66 mm[Hg] No Calvillo MA [facility] 5 11:33:55 Social History Question Answer Notes LastModified by Organizat ion Details LastModified Time Tobacco Smoking Status Former Smoker not since 1974 NELIDA Mark, [facility] 09/02/2022 09:17:56 Do You Have An Advance Directive? Yes Information not available 06/29/2023 Animal Exposure? Yes Informat ion not available 06/29/2023 Do You Wear A Helmet When Biking? Yes Information not available 06/29/2023 Is Blood Transfusion Acceptable In An Emergency? Yes [id number] Information not available 05/28/2020 What Is Your Level Of Caffeine Consumption? Moderate Two 6 Oz Cups Coffee Daily Information not available 01/13/2024 How Much Tobacco Do You Chew? None [id number] Information not available 05/28/2020 What Type Of Diet Are You Following? DIABETIC [id number] Information not available 05/28/2020 Which Illicit Or Recreational Drugs Have You Used? None [id number] Information not available 05/28/2020 Education 12 Information [...] Take Precautions To Prevent Distracted Driving? Yes arya Information not available 10/16/2015 How Often Do You Need To Have Someone Help You When You Read Instructions, Pamphlets, Or Other Written Material From Your Doctor Or Pharmacy? Never Information not available 10/16/2015 Have You Served In The ? No [email or web address] Information not available 10/12/2016 Have You Or Anyone In Your Household Had Any Of The Following Symptoms In The Last 14 Days: Sore Throat, Cough, Chills, Body Aches For Unknown Reasons, Shortness Of Breath For Unknown Reasons, Loss Of Smell, Loss Of Taste, Fever At Or Greater Than 100 Degrees Fahrenheit? No Information not available 01/23/2020 Are You Or Anyone In Your Household A Health Care Provider Or Emergency Responder? No [employer] Information not available 01/23/2020 To The Best Of Your Knowledge Have You Been In Close Proximity To Any Individual Who Tested Positive For COVID-19? No [employer] Information not available 01/23/2020 Have You Recently [...] Daughter; 1 Grandchild; Daughter Of Cancer 2018 [id number] Information not available 05/28/2020 Difficulty Reading? No Information not available 06/29/2023 Seat Belts Used Routinely Yes Information not available 06/29/2023 Are You Sexually Active? No (Nila) Information not available 01/13/2024 Smoke Alarm In Home Yes Information not available 06/29/2023 Are You Passively Exposed To Smoke? No Information not available 10/16/2015 How Much Tobacco Do You Smoke? No [id number] Information not available 05/28/2020 What Types Of Sporting Activities Do You Participate In? Fishing&bik ing Information not available 06/29/2023 Do You Use Sunscreen Routinely? Yes [id number] Information not available 05/28/2020 Do You Have [...] used smokeless tobacco? Never used smokeless tobacco [id number] Information not available 05/28/2020 Are you currently employed? No retired [email or web address] Information not available 12/02/2023 [address]y [address] at night? No Information not available 06/29/2023 Are you able to walk independently without assistance or assistive devices? YESWOREST Information not available 06/29/2023 Are you able to care for yourself independently? 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 No Information not available 06/29/2023 Do you or have you ever used e-cigarettes or vape? Never used electronic cigarettes Information not available 06/29/2023 What is your exercise level? Occasional [id number] Information not available 05/28/2020 Mental Status Question Answer Note LastModified by Organization D etails LastModified Time Do you have difficulty concentrating, remembering or making decisions? No Information no t available 06/29/2023 Family History Relationship Description Onset Age of this Age Resolved Age Notes LastModified by Organization Details LastModified Time Mother Diabetes mellitus 81 [email or web address] Not available 10/15 11:03:59 Brother Diabetes mellitus [email or web address] elena Not available 12/25 11:43:20 Medical History Condition Response Coronary Artery Disease N Other N Gout N Kidney Stones N Blood Diseases N Hyperthyroidism N Breast Cancer N Depression N COPD N Lung Disease N Hypothyroidism N Defects or Inherited Disease N Anesthesia Complications N Headaches/Migraines N Anxiety Disorder N Varicose Veins N Obesity N Vision or Eye Problems Y Arthritis Y Head Injury/Concussion N Polyps N Infertility N Congenital Anomalies N Acid Reflux (GERD) N Cancer Y Stroke N ADHD N Endometriosis N High Cholesterol Y Liver Disease N Fibromyalgia N Kidney Disease N Heart Problems N Ear or Hearing Problems N Hospitalizations Y Thyroid Problems N GI Problems N Acne N Skin Problems N Eating Disorder N Anemia N Constipation N Bladder Problems N Mental Illness N Ovarian Cancer N Diabetes Y Blood Transfusions N Seizures/Epilepsy N Tuberculosis N AIDS/HIV N Congestive Heart Failure (CHF) N Eczema N Diverticulitis Y Abuse/Domestic Violence N Asthma N Allergies N Reflux/GERD N Hepatitis N Pulmonary Embolism N Hypertension Y Chicken Pox N Autism Spectrum Disorder (ASD) N Osteoporosis N Immunizations Vaccine Type Date Status Note Provider Nam e and Address Organization Details Recorded Time zoster live 4 completed NELIDA Mena [facility] 12/02/2022 09:16:27 Influenza, high-dose, trivalent, PF [facility] 09:16:27 Influenza, high-dose, trivalent, PF 6 completed NELIDA Mena [facility] 12/02/2022 09:16:27 [facility]ap [facility]2022 09:16:27 Influenza, high-dose, trivalent, PF 9 completed NELIDA Velazquez [facility] 12/20/2024 11:03:30 zoster recombinant 9 completed NELIDA Velazquez [facility] 12/20/2024 11:03:30 COVID-19, mRNA, LNP-S, PF, 30 mcg/0.3 mL dose 1 completed NELIDA Mena, [facility] 12/02/2022 09:16:27 COVID-19, mRNA, LNP-S, PF, 30 mcg/0.3 mL dose 1 completed NELIDA Mena, [facility] 12/02/2022 09:16:27 COVID-19, mRNA, LNP-S, PF, 30 mcg/0.3 mL dose 1 completed NELIDA Mena, [facility] 12/02/2022 09:16:27 Influenza, split virus, trivalent, PF 0 completed NELIDA Mena, [facility] 12/02/2022 09:16:27 zoster recombinant 9 completed NELIDA Velazquez, [facility] 12/20/2024 11:03:30 Influenza, adjuvanted, trivalent, PF 8 completed NELIDA Mena, [facility] 12/02/2022 09:16:26 Influenza, adjuvanted, trivalent, PF 7 completed NELIDA Mena, [facility] 12/02/2022 09:16:26 Influenza, high-dose, quadrivalent, PF 1 completed NELIDA Mena, [facility] 12/02/2022 09:16:27 Influenza, split virus, trivalent, preservative 0 completed NELIDA Mena, [facility] 12/02/2022 09:16:27 Influenza, high-dose, trivalent, PF 5 completed NELIDA Mena, [facility] 12/02/2022 09:16:27 COVID-19, mRNA, LNP-S, PF, 30 mcg/0.3 mL dose, mayito-sucrose 2 completed NELIDA Mena, [facility] 12/02/2022 09:16:27 Pneumococcal conjugate PCV 13 5 completed No Calvillo MA null, [facility] 12/20/2024 11:03:30 Pneumococcal conjugate PCV 13 5 completed No Calvillo MA null, [facility] 12/20/2024 11:03:30 COVID-19, mRNA, LNP-S, bivalent, PF, 30 mcg/0.3 mL dose 2 completed Andria Hammer MA null, [facility] 12/02/2022 09:16:27 Influenza, adjuvanted, quadrivalent, PF 2 completed Andria Hammer MA null, [facility] 12/02/2022 09:16:27 Influenza, adjuvanted, quadrivalent, PF 3 completed Rahel Nolen null, [facility] 06/29/2023 11:25:54 RSV, bivalent, protein subunit RSVpreF, diluent reconstituted, 0.5 mL, PF 3 completed Rahel Nolen [facility], [facility] 06/29/2023 11:25:54 COVID-19, mRNA, LNP-S, PF, mayito-sucrose, 30 mcg/0.3 mL 3 completed Rahel Nolen null, [facility] 06/29/2023 11:25:54 zoster live 9 completed No Calvillo MA null, [facility] 12/20/2024 11:03:30 Influenza, high-dose, trivalent, PF 4 completed Carmen Ovalle null, [facility] 04/20/2024 13:24:45 zoster recombinant 9 completed No Calvillo MA null, [facility] 12/20/2024 11:03:30 COVID-19, mRNA, LNP-S, PF, mayito-sucrose, 30 mcg/0.3 mL 4 completed NELIDA Noel, [facility] 08/25/2024 11:15:13 Influenza, split virus, trivalent, preservative 1 completed NELIDA Mena, [facility] 12/02/2022 09:16:27 Influenza, split virus, trivalent, preservative 2 completed NELIDA Mena [facility] 12/02/2022 09:16:27 Tdap 3 completed NELIDA Mena, [facility] 12/02/2022 09:16:27 pneumococcal polysaccharide PPV23 3 completed NELIDA Mena, [facility] 12/02/2022 09:16:27 Past Encounters Encounter ID Performer Location Encounter Start Date Encounter Closed Date Diagnosis/Indication Diagnosis SNOMED-CT Code Diagnosis ICD10 Code Diagnosis IMO Codes Diagnosis Note [id number] Stas Pelaez MD Main Office [address] [facility] [place] [address] 04/10/2025 11:23:18 04/10/2025 11:59:34 Renal disorder due to type 2 diabetes mellitus 470683005 E11.21 His A1C remains less than 7. He was on meds in the past (jardiance ) but this was stopped in 2023 because his A1C was good after weight loss. No longer needs meds. We will follow. Influenza vaccination declined 832612955 Z28.21 03743676 Hypertensive disorder 38 340051 I10 Good control; continue current mgmt. Mild neuro cognitive disorder 078610205 G31.84 [facility]. He was on aricept but this was stopped because of a prolonged QT and since he felt that it wasn't helping. He is followed every 6 months. He would like to try a different med (memantine ) to see if that helps. Lesion of breast 1592782 04 N64.9 6652611 Non tender palpable lesion at left breast. Lesion of skin of face 5251831980 06 L98.9 5264759 Advised that he call his dermatolog ist to be evaluated since he has a h/o skin cancer. Nonischemi c congestive cardiomyopathy 4177029353 04 I42.0 [address] his [address]i st to see if he should still be on farxiga. Health Concerns Section Related Observation LastModified by Organization Detai ls LastModified Time None Recorded Concern Status LastModified by Organization Details LastModified Time None Recorded Payers Encounter Date Sequence Insurance Name Policy Number Policy Baker Covered Member ID Baker Member ID Guarantor Name 04/10/2025 1 [facility]: MEDICARE PPO BLUE (MEDICARE REPLACEMENT PPO) [id number] Cholo Carr [id number] Cholo Carr Notes Date Note Type Note Provider Name and Address Organization Details Recorded Time 04/10/2025 text/html Hypertension F/UReported by PatientHPIFor lifestyle, patient reportsnot exercising regularlybut reportslimiting/eugenie iding salt. 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 He has been having a tenderness and mostly an itch at his left nipple that has been going on for months. He denies any injury. Has a rash and scaly patch at the right cheek that is not improving. Stas Pelaez MD [address], [place], [address], [facility] 04/10/2025 12:33:44
--- OUTSIDE RECORDS SUMMARY | 2025-07-09 18:43 | XMS_ITS | Encounter Summary ---
Author Organization [facility] Address [address] [place] [address] Care Team Providers Care Javascript Engineer Name Role Phone Stas Pelaez MD Primary Care Provider [phone] Encounter Details Date Type Department Care Team (Late st Contact Info) Description 06/02/2024 Lab Requisition [facility] - Main Lab [address] [facility] [place] [address] Suzanne Pelayo MD [address] [facility] [address] [place] [address] Type 2 diabetes mellitus without complications (CMS/HCC V24, CMS/HCC V28); Essential (primary) hypertension Social History Tobacco Use Types Packs/Day Years Used Date Smoking Tobacco: Former Cigarettes 0.5 Q uit: 07/26/1975 Smokeless Tobacco: Never Alcohol [...] hypertension documented in this encounter Care Teams Javascript Engineer Relationship Specialty Start Date End Date Stas Pelaez MD [address] [facility] [address] [place], [place] PCP - General Internal Medicine 07/14/17 documented as of this encounter
--- OUTSIDE RECORDS SUMMARY | 2025-07-09 18:43 | XMS_ITS ---
Author Organization [facility] Care Team Providers Care Order Picker Name Role Phone Shasha Moncada Unavailable Unavailable Ulisses Ness Unavailable Unavailable Mauricio Garcia Unavailable Unavailable Allergies and adverse reactions Code CodeSystem Substance Reaction Severity StartDate Concern Status 02214828 SNOMED CT Dust Unknown 05/17/[address] Grass Unknown 05/17/2024 active 69057 RXNORM Lisinopril Unknown 05/17/[address] Mold Unknown 05/17/2024 active Care Team Name Role Address Phone Organization Dates Ulisses Ness PCP [address] [place] [address], [address], [facility] (Office): : [facility] 05/17/2024 - 05/21/2024 Shasha Moncada [place], [facility] Ailyn tee [facility] 05/17/2024 - 05/21/2024 Mauricio Garcia [place], [facility] [place] 05/17/2024 - 05/21/2024 Immunizations Immunization Status Vaccine Details Vaccine Code CodeSystem Date Notes Influenza completed Influenza, high-dose, split virus, quadrivalent, injectable, preservative free 197 CVX created date: 05/18/2024 administer ed date: 04/18/2024 Pulled from SUNDAY [id number] completed pneumococcal polysaccharide vaccine, 23 valent 33 CVX created date: 05/18/2024 administer ed date: 07/28/2012 COVID-19 Vaccine Dose 1 completed unknown vaccine or immune globulin 999 CVX created date: 05/18/2024 consent date: 05/18/2024 administer ed date: 10/12/2020 COVID-19 Vaccine Dose 2 completed unknown vaccine or immune globulin 999 CVX created date: 05/18/2024 administer ed date: 11/02/2020 COVID-19 Vaccine Single Dose completed unknown vaccine or immune globulin 999 CVX created date: 05/18/2024 administer ed date: 05/16/2023 COVID-19 Vaccine Single Dose completed unknown vaccine or immune globulin 999 CVX created date: 05/18/2024 administer ed date: 04/08/2022 COVID-19 Vaccine Single Dose completed unknown vaccine or immune globulin 999 CVX created date: 05/18/2024 administer ed date: 11/05/2021 COVID-19 Vaccine Single Dose completed unknown vaccine or immune globulin 999 CVX created date: 05/18/2024 administer ed date: 05/14/2021 RSV - Pfizer Abrysvo completed Respiratory syncytial virus (RSV), vaccine, bivalent, protein subunit RSV prefusion F, diluent reconstituted, 0.5 mL, preservative free 305 CVX created date: 05/18/2024 administer ed date: 04/27/2023 Prevnar 13 completed pneumococcal conjugate vaccine, 13 valent 133 CVX created date: 05/18/2024 administer ed date: 03/27/2015 Mental Status Section Date Assessment Total Score Description 05/21/2024 CAM 0 No delirium ind icated 05/21/2024 BIMS 06 severe cognitiv e impairment CAM 0 No delirium ind icated PHQ-9 01 minimal depress ion Insurance Providers Coverage Status Coverage Type Relationship to Subscriber Member Identifier Subscriber Identifier Group Identifier Payer Identifier and Other information 2024 Code: 51 Code System OID:[id number]. 5 Code System Name: Source of Payment Typology (PHDSC) Display: Managed Care (Private) Translation: Code: HM Code System: OID:[id number] .[id number]. 1336 Code System Name: Insurance Type Code ([id number]) Display Name: Health Maintenance Organization (HMO) Plan Code: SELF Code System Name: HL7 RoleCode Code System OID:[id number] .[id number] Display Name: Self [id number] Root: [id number] Payer Name: [facility] Address: [facility] [address] City: [place] State: [place] Country: [place] Code: 81 Code System OID:[id number] .[id number]. 5 Code System Name: Source of Payment Typology (PHDSC) Display: Self Pay Translation: Code: 09 Code System: OID:[id number] .[id number]. 1336 Code System Name: Insurance Type Code ([id number]) Display Name: Self-pay Problems Problem # Description Date of onset Resolved Date Code CodeSystem Concern Status 1 ALTERED MENTAL STATUS, UNSPECIFIED 05/17/[address] active 2 ATHEROSCLEROTIC HEART DISEASE OF CREEK CORONARY ARTERY WITHOUT ANGINA PECTORIS 05/17/[address] active 3 CHRONIC SYSTOLIC (CONGESTIVE) HEART FAILURE 05/17/[address] active 4 DISORIENTATION, UNSPECIFIED 05/17/[address] active 5 ESSENTIAL (PRIMARY) HYPERTENSION 05/17/[address] active 6 HYPERLIPIDEMIA, UNSPECIFIED 05/17/[address] active 7 NEED FOR ASSISTANCE WITH PERSONAL CARE 05/17/[address] active 8 OTHER SPECIFIED POSTPROCEDURAL STATES 05/17/[address] active 9 OTHER SYMPTOMS AND SIGNS INVOLVING COGNITIVE FUNCTIONS AND AWARENESS 05/17/[address] active 10 RETENTION OF URINE, UNSPECIFIED 05/17/[address] active 11 RHEUMATOID ARTHRITIS, UNSPECIFIED 05/17/[address] active 12 TYPE 2 DIABETES MELLITUS WITH DIABETIC NEUROPATHY, UNSPECIFIED 05/17/[address] active 13 TYPE 2 DIABETES MELLITUS WITHOUT COMPLICATIONS 05/17/[address] active 14 UNSPECIFIED ABNORMALITIES OF GAIT AND MOBILITY 05/17/[address] active 15 UNSPECIFIED FALL, SUBSEQUENT ENCOUNTER 05/17/[address] active 16 UNSTEADINESS ON FEET 05/17/[address] active Reason for Referral No Reasons for Referral Entered Social History Social History Observation Description Start Date End Date Code Code System Current Smoking Status Tobacco smoking consumption unknown 571136183 SNOMED CT Sex Assigned At Male 1945 [address]-8 [facility] Gender Identity Sexual Orientation Vital Signs Code Code System Vitals Name Values and Units Timing Information 43658-7 [facility] Pain Level Value=0.0 05/21/2024 9279-1 [facility] Respiratory Rate Value=18.0 Units=/m in 05/20/2024 8462-4 [facility] Blood Pressure-Diastolic Value=71 Un its=mmHg 05/20/2024 8480-6 [facility] Blood Pressure-Systolic Ebxic=947 Un its=mmHg 05/20/2024 8310-5 [facility] Body Temperature Value=97.4 Units= F 05/20/2024 8867-4 [facility] Heart rate Value=72.0 Units=/min 2339-0 [facility] Blood Sugar Yqayg=738.0 Units=mg/dL 05/20/2024 46621-6 [facility] O2 % BldC Oximetry Value=95.0 Units= % 05/20/2024 88709-1 [facility] Weight Juimw=602.6 Units=Lbs 8302-2 [facility] Height Value=63.0 Units=Inches 05/17/2024
--- OUTSIDE RECORDS SUMMARY | 2025-07-09 18:43 | XMS_ITS | Data Portability ---
Author Organization [facility] PAIN OFFICE Address [address] [facility] [address] [place] [address] Care Team Providers Care Anesthesia Associate Name Role Phone ASIM DICK Primary Care Provider PUJA MARIA Referring Provider Assessment Encounter Date Assessment Date Assessment LastModified [...] [facility] physical [facility] - [facility] [place], [place] 2. He can follow up for [...] booked for the same. He needs a package delivery driver on the day of the procedure. He is on Plavix . He can stop plavix for 7 days for the procedure per his stitch burnisher . Instructions were given. [email or web address] Not available [...] referral 2018 019 [email or web address] [facility], [address] [facility] [address], [place], [address], 9 13:59:24 Procedures None recorded. Surgeries None recorded. Imaging None recorded. Medication Orders None recorded. Patient TargetsNo targets recorded. Patient Instructions Encounter Date Encounter Id Patient Instructions Last Modified By Organization Details Last Modified Time 08/30/2018 [id number] I have advised him to continue with activities as tolerated. He is a diabetic . Steroids can cause a transient increase in blood glucose levels . He was advised to monitor his blood glucose levels . If above 250 to contact his PCP. [email or web address] Not available 08/30/2018 13:46:13 09/26/2018 [id number] I have advised him to continue with activities as tolerated. He is a diabetic . Steroids can cause a transient increase in blood glucose levels . He was advised to monitor his blood glucose levels . If above 250 to contact his PCP. [email or web address] Not available 09/26/2018 13:52:48 11/30/2018 [id number] I have advised him to continue with activities as tolerated. He is a diabetic . Steroids can cause a transient increase in blood glucose levels . He was advised to monitor his blood glucose levels . If above 250 to contact his PCP. [email or web address] Not available 11/30/2018 10:34:05 01/16/2019 [id number] I have advised him to continue with activities as tolerated. He is a diabetic . Steroids can cause a transient increase in blood glucose levels . He was advised to monitor his blood glucose levels . If above 250 to contact his PCP. [email or web address] Not available 01/16/2019 10:18:59 02/15/2019 [id number] I have advised him to continue with [...] Details Recorded Time Inflammation of sacroiliac joint 92413964 Active Fan patton MD [address] [facility] [facility] , [address], [place], [address], [place] [facility] 8 14:31:27 Lumbosacral radiculopathy 8875880 Active Fan patton MD [address] [facility] , [address], [place], [address], [place] [facility] 8 11:15:38 Lumbosacral spondylosis without myelopathy 87799402 Active 2017 Fan patton MD [address] [facility] , [address], [place], [address], [place] [facility] 8 11:21:34 Displacement of lumbar intervertebral disc without myelopathy 75617576 Active 2017 Fan patton MD [address] [facility] , [address], [place], [address], [place] [facility] 8 11:21:35 Neuropathy due to diabetes mellitus 261351523 Active 2017 Fan patton MD [address] [facility] , [address], [place], [address], [place] [facility] 8 11:21:36 Problem Notes None recorded. Procedures Surgical History Date Name Laterality Status Provider Name and Address Organization Details Recorded Time 02/16/20 19 Sacroiliac Joint Steroid Injections, using Fluoroscopy completed Fan Gaytan MD [address] [facility] , [address], [place], [address], [place] [facility] 02/15/2019 11:53:31 12/01/19 19 Sacroiliac Joint Steroid Injections, using Fluoroscopy completed Fan Gaytan MD [address] [facility] , [address], [place], [address], [place] [facility] 11/30/2018 10:33:03 08/30/19 19 Fluoroscopic Guided Lumbar Facet Steroid Injections of levels completed Fan Gaytan MD [address] [facility] , [address], [place], [address], [place] [facility] 08/30/2018 13:49:36 02/16/20 18 Lumbar Epidural steroid injection under fluoroscopic guidance completed Fan Gaytan MD [address] [facility] , [address], [place], [address], [place] [facility] 02/15/2018 13:25:33 12/01/19 18 Fluoroscopic Guided Lumbar Facet Steroid Injections of levels completed Fan Gaytan MD [address] [facility] , [address], [place], [address], [place] [facility] 12/02/2017 13:26:26 05/26/20 17 Other completed Jacquelin Hatfield [place] [facility] 11/01/2017 10:43:10 12/24/19 17 Fluoroscopic Guided Lumbar Facet Steroid Injections of levels completed Fan Gaytan MD [address] [facility] , [address], [place], [address], [place] [facility] 12/23/2016 09:46:36 07/29/19 17 Fluoroscopic Guided Lumbar Facet Steroid Injections of levels completed Fan Gaytan MD [address] [facility] , [address], [place], [address], [place] [facility] 07/29/2016 13:30:23 06/10/20 16 Fluoroscopic Guided Lumbar Facet Steroid Injections of levels completed Fan Gaytan MD [address] [facility] , [address], [place], [address], [place] [facility] 06/12/2016 [...] Name and Address Organization Details Recorded Time 30553 lisinopri l medicatio n cough severe Not available 05/19/2016 [id number] RxNorm Jacquelin driscoll [place] [facility] [...] Recorded Body height Heart rate Oxygen saturation Systolic And Diastolic Provider Name and Address Organization Details Last Updated DateTime 08/30/2018 175.26 cm 61 /min 98 % 158/76 mm[Hg] Jacquelin Hatfield [facility] 08/30/2018 10:59:35 Date Recorded Body height Heart rate Oxygen saturation Systolic And Diastolic Provider Name and Address Organization Details Last Updated DateTime 09/26/2018 175.26 cm 75 /min 96 % 130/78 mm[Hg] Jacquelin Hatfield [facility] 09/26/2018 11:35:45 Date Recorded Body height Oxygen saturation Heart rate Systolic And Diastolic Provider Name and Address Organization Details Last Updated DateTime 11/30/2018 175.26 cm 98 % 75 /min 128/73 mm[Hg] Jacquelin Hatfield [place] [facility] 11/30/2018 09:59:46 Date Recorded Body height Heart rate Oxygen saturation Body mass index (BMI) Body weight Systolic And Diastolic Provider Name and Address Organization Details Last Updated DateTime 9 175.26 cm 58 /min 95 % 27.3 kg/m2 52622.5 9 g 126/62 mm[Hg] Jacquelin Hatfield [facility] 9 09:35:30 Date Recorded Body height Heart rate Oxygen saturation Systolic And Diastolic Provider Name and Address Organization Details Last Updated DateTime 02/15/2019 175.26 cm 52 /min 98 % 135/64 mm[Hg] Jacquelin Hatfield [place] [facility] 02/15/2019 10:08:36 Social History Question Answer Notes LastModified by Organ[employer]at [employer] Details LastModified Time Tobacco Smoking Status Former Smoker [facility] in 1974 [facility] 05/10/2020 03:16:12 Which Illicit Or Recreational Drugs Have You Used? No [id number] Information not available 05/10/2020 Education 12 [email or web address] Information no t available 05/18/2016 Live Alone Or With Others? With Others [email or web address] Information not available 05/18/2016 Marital Status [email or web address] Informatio n not available 05/18/2016 What Was The Date Of Your Most Recent Tobacco Screening? 01/16/2019 [id number] Information not available 05/10/2020 How Many Years Have You Smoked Tobacco? 10 [id number] Information not available 05/10/2020 Sex: Unknown Functional Status Question Answer Note LastModified by Organ[employer] Details LastModified Time What is your level of alcohol consumption? Occasional [id number] Information not available 05/10/2020 Are you currently employed? 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 Family History Nothing Reported. Medical History Condition Response Diabetes Y Arthritis Y High Cholesterol Y Cancer Y Hypertension Y Past Encounters Encounter ID Performer Location Encounter Start Date Encounter Closed Date Diagnosis/Indication Diagnosis SNOMED-CT Code Diagnosis ICD10 Code Diagnosis IMO Codes Diagnosis Note [id number] Fan Gaytan MD PAIN OFFICE [address] [place] [address] 05/18/2016 14:04:13 05/18/2016 19:37:50 Lumbosacral spondylosis without myelopathy 58621353 M47.817 Displaceme nt of lumbar intervertebral disc without myelopathy 35882919 M51.26 Neuropathy due to diabetes mellitus 439098428 E11.40 [id number] Fan Gaytan MD PAIN OFFICE [address] [place] [address] 06/10/2016 08:42:45 06/12/2016 10:55:53 Lumbosacral spondylosis without myelopathy 88428664 M47.817 Neuropathy due to diabetes mellitus 969738400 E11.40 Displaceme nt of lumbar intervertebral disc without myelopathy 39207350 M51.26 [id number] Fan Gaytan MD PAIN OFFICE [address] [place] [address] 07/13/2016 09:12:44 07/13/2016 11:01:42 Neuropathy due to diabetes mellitus 655193842 E11.40 Lumbosacra l spondylosis without myelopathy 94967778 M47.817 Displaceme nt of lumbar intervertebral disc without myelopathy 35440130 M51.26 [id number] Fan Gaytan MD PAIN OFFICE [address] [place] [place] [address] 07/29/2016 11:11:45 07/29/2016 15:27:47 Lumbosacral spondylosis without myelopathy 64914138 M47.817 Displaceme nt of lumbar intervertebral disc without myelopathy 89268517 M51.26 Neuropathy due to diabetes mellitus 945934415 E11.40 [id number] Fan Gaytan MD PAIN OFFICE [address] [place] [place] [address] 08/31/2016 09:45:19 08/31/2016 13:56:18 Lumbosacral spondylosis without myelopathy 98431279 M47.817 Displaceme nt of lumbar intervertebral disc without myelopathy 77197563 M51.26 Neuropathy due to diabetes mellitus 795421140 E11.40 [id number] Fan Gaytan MD PAIN OFFICE [address] [place] [address] 12/23/2016 08:41:52 12/23/2016 14:40:25 Lumbosacral spondylosis without myelopathy 45023768 M47.817 Displaceme nt of lumbar intervertebral disc without myelopathy 84258648 M51.26 Neuropathy due to diabetes mellitus 307856264 E11.40 [id number] Fan Gaytan MD PAIN OFFICE [address] [place] [address] 11/01/2017 10:14:09 11/01/2017 13:24:44 Lumbosacral spondylosis without myelopathy 36566825 M47.817 Displaceme nt of lumbar intervertebral disc without myelopathy 28345887 M51.26 Neuropathy due to diabetes mellitus 786316896 E11.40 [id number] Fan Gaytan MD SV PAIN OFFICE [address] [place] [address] 11/30/2017 12:51:37 12/02/2017 14:12:45 Lumbosacral spondylosis without myelopathy 40523121 M47.817 Displaceme nt of lumbar intervertebral disc without myelopathy 29549501 M51.26 Neuropathy due to diabetes mellitus 262638653 E11.40 [id number] Fan Gaytan MD [facility] PAIN OFFICE [address] [place] [address] 01/05/2018 12:57:06 01/06/2018 14:36:57 Lumbosacral spondylosis without myelopathy 53201753 M47.817 Displaceme nt of lumbar intervertebral disc without myelopathy 78656416 M51.26 Neuropathy due to diabetes mellitus 783688621 E11.40 Inflammati on of sacroiliac joint 14554374 M46.1 [id number] Fan Gaytan MD PAIN OFFICE [address] [place] [address] 02/03/2018 10:20:19 02/03/2018 11:19:51 Displacement of lumbar intervertebral disc without myelopathy 80709610 M51.26 Lumbosacra l radiculopathy 7377062 M54.17 Lumbosacra l spondylosis without myelopathy 29686042 M47.817 [id number] Fan Gaytan MD PAIN OFFICE [address] [place] [address] 02/15/2018 11:24:53 02/15/2018 14:27:50 Displacement of lumbar intervertebral disc without myelopathy 54484988 M51.26 Lumbosacra l radiculopathy 9022405 M54.17 Lumbosacra l spondylosis without myelopathy 81360635 M47.817 [id number] Fan Gaytan MD PAIN OFFICE [address] [place] [address] 07/11/2018 10:45:33 07/29/2018 11:28:28 Lumbosacral spondylosis without myelopathy 94083790 M47.817 Displaceme nt of lumbar intervertebral disc without myelopathy 12882566 M51.26 Neuropathy due to diabetes mellitus 355728679 E11.40 [id number] Fan Gaytan MD PAIN OFFICE [address] [place] [address] 08/30/2018 10:49:35 08/30/2018 15:55:49 Lumbosacral spondylosis without myelopathy 95449372 M47.817 Displaceme nt of lumbar intervertebral disc without myelopathy 49790599 M51.26 Neuropathy due to diabetes mellitus 402848937 E11.40 [id number] Fan Gaytan MD PAIN OFFICE [address] [place] [address] 09/26/2018 11:21:39 09/26/2018 13:58:08 Inflammation of sacroiliac joint 79315081 M46.1 Lumbosacra l radiculopathy 1692816 M54.17 Displaceme nt of lumbar intervertebral disc without myelopathy 84276194 M51.26 Neuropathy due to diabetes mellitus 565170846 E11.40 Lumbosacra l spondylosis without myelopathy 36114858 M47.817 [id number] Fan Gaytan MD PAIN OFFICE [address] [place] [address] 11/30/2018 09:56:57 11/30/2018 11:36:14 Inflammation of sacroiliac joint 73755587 M46.1 Lumbosacra l radiculopathy 6133444 M54.17 Displaceme nt of lumbar intervertebral disc without myelopathy 76912956 M51.26 Neuropathy due to diabetes mellitus 215653508 E11.40 Lumbosacra l spondylosis without myelopathy 86340933 M47.817 [id number] Fan Gaytan MD PAIN OFFICE [address] [place] [address] 01/16/2019 09:15:30 01/16/2019 10:44:22 Inflammation of sacroiliac joint 87776514 M46.1 Lumbosacra l radiculopathy 9024216 M54.17 Displaceme nt of lumbar intervertebral disc without myelopathy 74939042 M51.26 Neuropathy due to diabetes mellitus 175916625 E11.40 Lumbosacra l spondylosis without myelopathy 82403169 M47.817 [id number] Fan Gaytan MD PAIN OFFICE [address] [facility] [place] [address] 02/15/2019 10:01:31 02/15/2019 11:58:06 Inflammation of sacroiliac joint 62233368 M46.1 Lumbosacra l radiculopathy 1998187 M54.17 Displaceme nt of lumbar intervertebral disc without myelopathy 56050792 M51.26 Neuropathy due to diabetes mellitus 200374280 E11.40 Lumbosacra l spondylosis without myelopathy 91594155 M47.817 Health Concerns Section Related Observation LastModified by Organization Detai ls LastModified Time None Recorded Concern Status LastModified by Organization Details LastModified Time None Recorded Advance Directives Directive None Recorded Payers Insurance Date Sequence Insurance Name Policy Number Policy Baker Covered Member ID Baker Member ID Guarantor Name 02/12/2019 1 [facility]: MEDICARE PPO BLUE (MEDICARE REPLACEMENT PPO) [id number] Cholo Carr [id number] Cholo Carr Notes Date Note Type Note Provider Name and Address Organization Details Recorded Time 08/30/2018 text/html He is here for bilateral facet joint injections under fluoroscopic guidance. He has stopped plavix for 7 days for the procedure. Fan Gaytan MD [address] , [address], [place], [address], [facility] 09/01/2018 11:44:27 09/26/2018 text/html He [...] been doing well Fan Gaytan MD [address] [facility] , [address], [place], [address], [place] [facility] 09/30/2018 10:04:34 11/30/2018 text/html He is here for a Right Sacroiliac joint injection under fluoroscopic guidance. He has stopped Plavix for 7 days for the procedure. Fan Gaytan MD [address] [facility] , [address], [place], [address], [place] [facility] 12/02/2018 09:23:30 [...] or bowel incontinence. Fan Gaytan MD [address] [facility] , [address], [place], [address], [place] [facility] 01/17/2019 08:30:53 02/15/2019 text/html He is here for a Right Sacroiliac joint injection under fluoroscopic guidance. He has stopped Plavix for 7 days for the procedure. Fan Gaytan MD [address] [facility] , [address], [place], [address], [place] [facility] 02/16/2019 16:29:42
--- OUTSIDE RECORDS SUMMARY | 2025-07-09 18:43 | XMS_ITS | Clinical Summary ---
Author Organization [address] Address [address] [place] [address] Phone Care Team Providers Care Inspecting Engineer Name Role Phone Stas Pelaez MD [...] Problem Noted Date Diagnosed Date Nonischemic cardiomyopathy 09/26/2024 Assessment & Plan (01/01/2025 4:06 PM [...] today; this does not appear to be small business representative of overt heart failure given the [...] Future Heart failure with mid-range ejection fraction ( HFmEF) 09/26/2024 Assessment & Plan (01/01/2025 4:06 PM EDT): As above. Assessment & Plan (09/26/2024 6:45 PM EST): As above. 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 08/26/2020 Stage 3a chronic kidney disease 08/26/2020 Basal cell carcinoma of chest 03/20/2020 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 020 Cholelithiasis 03/14/2018 Overview (09/14/2024): 05/2017 CT Coronary artery disease of n ative artery of [place] heart with stable angina pectoris 03/14/2018 Overview (09/26/2024): 2016 LAD Stent; nonobstructive disease noted on cardiac [...] Right fissure, yearly CT RA (rheumatoid arthritis) 03/14/2018 Thyroid nodule 03/14/2018 Overview (09/14/2024): 05/2017 [...] Comments TOTAL KNEE ARTHROPLASTY 2006 Right PROCEDURE: WI ARTHRP KNE CONDYLE&PLATU MEDIAL&LAT COMPARTMENTS OTHER SURGICAL HISTORY 1989 PROCEDURE: WI COLECTOMY PRTL ABDOMINAL & TRANSANAL APPROACH; COMMENT: Sigmoid resection d/t Diverticulitis OTHER SURGICAL HISTORY 05/26/2017 PROCEDURE: STENT,CORONARY, S660 ; COMMENT: [facility], LAD stent OTHER SURGICAL HISTORY PROCEDURE: WI PROSTATECTOMY RETROPUBIC W/WO NERVE SPARING EYE SURGERY 2006 Right PROCEDURE: HISTORICAL EYE SURGERY COLONOSCOPY 2011 PROCEDURE: HISTORICAL COLONOSCOPY; COMMENT: Benign Polyp OTHER SURGICAL HISTORY 10/22/2014 Right PROCEDURE: WI EXC B9 LESION MRGN XCP SK TG T/A/L 0.6-1.0 CM; COMMENT: Biopsy site scar- Right Deltoid area KNEE ARTHROSCOPY W/ MENISCAL REPAIR 2010 Left PROCEDURE: WI ARTHROSCOPY KNEE W/MENISCUS RPR MEDIAL/LATERAL Medical History [...] 2016 LAD Stent RA (rheumatoid arthritis) (C VT/HCC V24, CMS/HCC V28) 03/14/2018 DX:RA (rheumatoid arthritis) ([facility]) Obstructive sleep apnea syndrome 05/14/2017 DX:Obstructive sleep apnea syndrome; COMMENT: CPAP Multiple environmental allergies 03/14/2018 DX:Multiple environmental allergies Diabetes mellitus type 2, uncomplicated (CMS/HCC V24, CMS/HCC V28) DX:Diabetes mellitus type 2, uncomplicated ([facility]) Atypical pigmented skin lesion 07/23/2017 D X:Atypical [...] on file Sexual Orientation Not on file Last Filed Vital Signs Vital Sign Reading [...] 01/31/1955 Diabetes: Annual Retina Eye Exam 01/31/1955 Falls Risk Assessment 07/04/2022 Hepatitis C Screening 07/04/2022 Medicare Annual Wellness Visit 07/04/2022 Social Influencers of Health Screening 07/04/2022 Diabetes: Annual Urine Albumin-Creatinine Ratio (uACR) 07/08/2022 Diabetes: Blood Sugar Control Test (HGBA1C) 07/08/2022 Depression Screening 07/26/2024 Diabetes: Annual GFR (Glomerular Filtration Rate) 09/29/2025 09/29/2024 Hypertension/CHF/CAD Annual BMP Blood Test 09/29/2025 09/29/2024 COVID-19 Vaccine (9 - Pfizer risk season) 2025 04/19/2025, 05/01/2024, 05/16/2023, Additional history exists DTaP,Tdap,and Td Vaccines (3 - Td or Tdap) 02/01/2028 01/31/2018, 07/28/2012 Cholesterol Screening (Lipid Panel) 09/29/2029 09/29/2024 Zoster Vaccines Completed 01/24/2019, 10/24, 11/02/2018, Additional history exists RSV Immunization Adult Patients Completed 04/27/2023 Influenza Vaccine Completed 04/19/2025, , 04/27/2023, Additional history exists Pneumococcal Vaccine: 50+ Years Completed 04/27/2025, 03/27/2015, 01/02/2015, Additional history exists HIB Vaccines Aged Out No longer eligi ble based on patient's age to complete this topic HPV Vaccines Aged Out No longer eligi ble based on patient's age to complete this topic Hepatitis A Vaccines Aged Out No long er eligible based on patient's age to complete this topic Hepatitis B Vaccines Aged Out No long er eligible based [...] 7:40 AM EST Coronary artery disease of [place] artery of [place] heart with stable angina pectoris ([facility] V24) Essential hypertension LIPID PANEL Routine 09/29/2024 7:40 AM EST Coronary artery disease of [place] artery of [place] heart with stable angina pectoris ([facility] V24) Mixed hyperlipidemia from Last 3 Months or Most Recently Relevant to Health Maintenance Results * Lipid panel (09/29/2024 7:40 AM EST) Cholesterol Total 107 100 - 199 mg/dL [facility] 1 Triglycerides 94 0 - 149 mg/dL [facility] 1 HDL Cholesterol 44 >39 mg/dL [facility] 1 VLDL Cholesterol Calculated 18 5 - 40 mg/dL [facility] 1 LDL Chol Calc ([facility]) 45 0 - 99 mg/dL [facility] 1 Blood Venous blood specimen / Unknown 09/29/2024 7:40 AM EST 09/29/2024 Narrative [facility] 1 - 09/30/2024 7:06 AM EST Performed at: 01 - [facility] [address] [id number] Alignment Specialist: Mariah Weeks MD, Phone: [phone] Meg Cason NP LAB BLOOD ORDERABLES Final Result [facility] 1 * (ABNORMAL) Basic metabolic panel (09/29/2024 7:40 AM EST) [facility] Glucose 101(H) 70 - 99 mg/dL [facility] [...] - 09/30/2024 7:06 AM EST Performed at: 01 - [facility] [address] [id number] Alignment Specialist: Mariah Weeks MD, Phone: [phone] Meg Cason NP LAB BLOOD ORDERABLES Final Result [facility] 1 from Last 3 Months or Most Recently Relevant to Health Maintenance Insurance [employer] [place] MEDICARE ADVANTAGE Care Teams Inspecting Engineer Relationship Specialty Start Date End Date Stas Pelaez MD [address] PCP - General Internal Medicine 07/14/17
--- OUTSIDE RECORDS SUMMARY | 2025-07-09 18:43 | XMS_ITS | Encounter Summary ---
Author Organization [facility] Address [address] [place] [address] Care Team Providers Care Face Hardener Name Role Phone Stas Pelaez MD Primary Care Provider [phone] Encounter Details Date Type Department Care Team (Late st Contact Info) Description 05/27/2024 Lab Requisition [facility] - Main Lab [address] [facility] [place] [address] Suzanne Pelayo MD [address] [facility] 1 [place] [address] Type 2 diabetes mellitus without complications (CMS/HCC [...] hypertension documented in this encounter Care Teams Face Hardener Relationship Specialty Start Date End Date Stas Pelaez MD [address] [facility] [address] [place], [place] PCP - General Internal Medicine 07/14/17 documented as of this encounter
--- OUTSIDE RECORDS SUMMARY | 2025-07-09 18:44 | XMS_ITS | Data Portability ---
Author Organization 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 Name Role Phone ASIM PELAEZ Primary Care Provider FALLON CHAO Per Diem Registered Nurse [phone] MAGY BASS Sales Promoter ROBERT VALDEZ Sock Liner [phone] LORAINE COREAS Neurosurgeon NOAH TERRELL Supervisor Malt House MARGY SORTO Sailor WHITNEY WILKERSON Guide Dog Trainer DONAL LOPEZ Referring Provider [phone] DANIE ARREOLA Sailor MAGY BRADFORD Referring Provider [phone] Assessment Encounter Date Assessment Date Assessment [...] DO Not Attach Compendium, Do Not Delete/merge, [id number] 04/10/2025 13:21:20 CMP, serum or plasm a 2024 025 ANTONINA [facility] (Centralized Electronic Ordering - All Locations), Patient Can Go To The Location Of Their Choice, [id number] 04/11/2025 06:08:08 hemog lobin A1C, finge rstic k 2024 025 jason In-Office Order, Internal Use Only DO Not Attach Compendium DO Not Attach Compendium, Do Not Delete/merge, [id number] 12/20/2024 11:55:12 HbA1c (hemo globi n A1c), blood 2024 025 ANTONINA [facility] (Centralized Electronic Ordering - All Locations), Patient Can Go To The Location Of Their Choice, [id number] 09/01/2024 10:06:20 micro album in/cr eatin ine, mass ratio , urine 2024 025 ANTONINA [facility] (Centralized Electronic Ordering - All Locations), Patient Can Go To The Location Of Their Choice, [address] 09/01/2024 10:06:19 CMP, serum or plasm a 2023 024 ANTONINA [facility] (Centralized Electronic Ordering - All Locations), Patient Can Go To The Location Of Their Choice, [id number] 06/02/2024 06:08:27 Referral physi holli tripathi refer ral - Chron ic low back pain 2024 025 [facility] [place], [address], [place], [address], 12/28/2024 09:17:31 [facility] refer ral - Last seen by bhakti bell January 2024 and fell off from f/u. 2024 025 jason Wilkerson MD, [address], [address], [place], [address], 10/07/2024 15:13:45 Procedures None recor ded. Surgeries None recor ded. Imaging US, breas t, unila teral , compl ete - Itchy left nippl e and small mass w/o pain. R/o breas t tissu e. 2024 025 eryn [facility], [address], [address], [place], [address], 04/24/2025 10:08:26 MRI, liver , w/o contr ast - liver leseliel fermin led on abdom inal CT in ED 2023 024 [email or web address] [facility] ([facility]), [address], [place], [address], 07/27/2024 09:15:00 PET-C T, whole body scan - multi ple pulmo nary nodul es in right lung. scott rn for metas tatmonie disea se of unkon wn origi n 2023 024 eryn [facility], [address], [place], [address], 06/15/2024 11:04:42 Medication Orders meman lew 10 mg table t 2024 025 [facility][id number], [address] [place], [address], 04/10/2025 12:07:36 sertr lj 100 mg table t 2024 025 [facility] #[id number], [address] [place], [address], 12/20/2024 11:56:53 Patient TargetsNo targets recorded. Patient Instructions Encounter Date Encounter Id Patient Instructions Last Modified By Organization Details Last Modified Time 06/01/2024 [id number] [facility] follow up visit, all current and discharge medications (OTC, herbal therapies, supplements) reviewed and reconciled with patient and or caregiver, including potential side effects, drug interactions, instructions, and the consequences of not taking medication. Reviewed potential barriers to medication adherence, such as side effects from medication or cost of medication. [email or web address] Not available 06/01/2024 10:49:48 08/25/2024 [id number] high cholesterol: care instructions [email or web address] Not available 08/27/2024 14:09:36 preventing falls: care instructions [email or web address] Not available 08/25/2024 11:48:54 well visit, over 65: care instructions [email or web address] Not available 08/25/2024 11:48:54 Rheumatoid Arthritis (RA): Care Instructions [email or web address] Not available 08/27/2024 14:09:36 12/20/2024 [id number] Preventing Depression From Coming Back: Care Instructions [...] of medication. Not available 12/20/2024 11:02:26 04/10/2025 [id number] Medications (OTC, herbal therapies, supplements) reviewed and reconciled with patient and or caregiver, including potential side effects, drug interactions, instructions, and the consequences of not taking medication. Reviewed potential barriers to medication adherence, such as side effects from medication or cost of medication. Not available 04/10/2025 11:28:13 Reason for Referral Guide Dog Trainer Referral for Co ronary arteriosclerosis Last seen [...] high normal Not Available [facility] ([facility]) [address] [facility], [place], [address], 06/02/2024 06:08:27 06/01/20 24 06/02/2024 COMP. METAB OLIC PANEL (14) BUN 23 mg/dL 8-27 normal Not Available [facility] ([facility]) [address] [facility] [place], [address], 06/02/2024 06:08:27 06/01/20 24 06/02/2024 COMP. METAB OLIC PANEL (14) creatinine 1.11 mg/dL 0.76-1 .27 normal Not Available [facility] ([facility]) [address] [facility] [place], [address], 06/02/2024 06:08:27 06/01/20 24 06/02/2024 COMP. METAB OLIC PANEL (14) eGFR 68 mL/mi n/1.7 3 >59 normal Not Available [facility] ([facility]) [address] [facility], [place], [address], 06/02/2024 06:08:27 06/01/20 24 06/02/2024 COMP. METAB OLIC PANEL (14) BUN/creatini ne ratio 21 10-24 normal Not Available [facility] ([facility]) [address] [facility], [place], [address], 06/02/2024 06:08:27 06/01/20 24 06/02/2024 COMP. METAB OLIC PANEL (14) sodium 141 mmol/ L 134-14 4 normal Not Available [facility] ([facility]) [address] [facility] [place], [address], 06/02/2024 06:08:27 06/01/20 24 06/02/2024 COMP. METAB OLIC PANEL (14) potassium 4.3 mmol/ L 3.5-5. 2 normal Not Available [facility] ([facility]) [address] [facility] [place], [address], 06/02/2024 06:08:27 06/01/20 24 06/02/2024 COMP. METAB OLIC PANEL (14) chloride 104 mmol/ L 96-106 normal Not Available [facility] ([facility]) [address] [facility] [place], [address], 06/02/2024 06:08:27 06/01/20 24 06/02/2024 COMP. METAB OLIC PANEL (14) carbon dioxide, total 21 mmol/ L 20-29 normal Not Available [facility] ([facility]) [address] [facility] [place], [address], 06/02/2024 06:08:27 06/01/20 24 06/02/2024 COMP. METAB OLIC PANEL (14) calcium 9.5 mg/dL 8.6-10 .2 normal Not Available [facility] ([facility]) [address] [facility] [place] [place], [address], 06/02/2024 06:08:27 06/01/20 24 06/02/2024 COMP. METAB OLIC PANEL (14) protein, total 6.1 g/dL 6.0-8. 5 normal Not Available [facility] ([facility]) [address] [facility] [place], [address], 06/02/2024 06:08:27 06/01/20 24 06/02/2024 COMP. METAB OLIC PANEL (14) albumin 4.0 g/dL 3.8-4. 8 normal Not Available [facility] ([facility]) [address] [facility] [place], [address], 06/02/2024 06:08:27 06/01/20 24 06/02/2024 COMP. METAB OLIC PANEL (14) globulin, total 2.1 g/dL 1.5-4. 5 Not Available [facility] ([facility]) [address] [facility] [place] [place], [address], 06/02/2024 06:08:27 06/01/20 24 06/02/2024 COMP. METAB OLIC PANEL (14) bilirubin, total 0.5 mg/dL 0.0-1. 2 normal Not Available [facility] ([facility]) [address] [facility] [place] [place], [address], 06/02/2024 06:08:27 06/01/20 24 06/02/2024 COMP. METAB OLIC PANEL (14) alkaline phosphatase 101 IU/L 44-121 normal Not Available [facility] ([facility]) [address] [facility] [place], [address], 06/02/2024 06:08:27 06/01/20 24 06/02/2024 COMP. METAB OLIC PANEL (14) AST (SGOT) 25 IU/L 0-40 normal Not Available [facility] ([facility]) [address] [facility] [place], [address], 06/02/2024 06:08:27 06/01/20 24 06/02/2024 COMP. METAB OLIC PANEL (14) ALT (SGPT) 33 IU/L 0-44 normal Not Available [facility] ([facility]) [address] [facility] [place], [address], 06/02/2024 06:08:27 08/30/19 25 08/30/2024 LIPID PANEL cholesterol, total 99 mg/dL 100-19 9 below low normal Not Available [facility] ([facility]) [address] [facility] [place], [address], 08/31/2024 06:08:27 08/30/19 25 08/30/2024 LIPID PANEL triglyceride s 61 mg/dL 0-149 normal Not Available [facility] ([facility]) [address] [place], [address], 08/31/2024 06:08:27 08/30/19 25 08/30/2024 LIPID PANEL HDL cholesterol 47 mg/dL >39 normal Not Available [facility]) [address] [place], [address], 08/31/2024 06:08:27 08/30/19 25 08/30/2024 LIPID PANEL VLDL cholesterol holli 14 mg/dL 5-40 Not Available [facility] ([facility]) [address] [place], [address], 08/31/2024 06:08:27 08/30/19 25 08/30/2024 LIPID PANEL LDL chol calc ([facility]) 38 mg/dL 0-99 Not Available [facility] ([facility]) [address] [place], [address], 08/31/2024 06:08:27 08/30/19 25 08/30/2024 LIPID PANEL LDL calc comment: ARBORIST REPRESENTATIVE Not Available [facility] ([facility]) [address] [place], [address], 08/31/2024 06:08:27 08/30/19 25 09/01/2024 ALBUM IN/CR EAT RATIO , RANDO M UR creatinine, urine 127.2 mg/dL not estab. normal Not Available [facility] ([facility]) [address] [place], [address], 09/01/2024 10:06:19 08/30/19 25 09/01/2024 ALBUM IN/CR EAT RATIO , RANDO M UR albumin, urine 362.2 ug/mL not estab. Not Available [facility] ([facility]) [address] [place], [address], 09/01/2024 10:06:19 08/30/19 25 09/01/2024 ALBUM IN/CR EAT RATIO , RANDO M UR alb/creat ratio 285 mg/g_ creat 0-29 above high normal Elissa l: 0 - 29 Moder ately incre ased: 30 - 300 Sever david incre ased: >300 Not Available [facility] ([facility]) [address] [place], [address], 09/01/2024 10:06:19 08/30/19 25 08/30/2024 HEMOG LOBIN A1C hemoglobin A1C 6.7 % 4.8-5. 6 above high normal Predi abete s: 5.7 - 6.4 Diabe alfonzo: >6.4 Glyce favian contr ol for adult s with diabe alfonzo: <7.0 Not Available [facility] ([facility]) [address] [place], [address], 09/01/2024 10:06:20 12/16/19 25 12/15/2024 CBC w/ auto diff WBC 6.0 Not Available [facility] [address], [address], 12/19/2024 14:11:42 12/16/19 25 12/15/2024 CBC w/ auto diff RBC 4.06 Not Available [facility] [address], [address], 12/19/2024 14:11:42 12/16/19 25 12/15/2024 CBC w/ auto diff HGB 13.0 Not Available [facility] [address], [address], 12/19/2024 14:11:42 12/16/19 25 12/15/2024 CBC w/ auto diff HCT 39.1 Not Available [facility] [address], [address], 12/19/2024 14:11:42 12/16/19 25 12/15/2024 CBC w/ auto diff plt 156 Not Available [facility] [address], [address], 12/19/2024 14:11:42 05/28/12/20/2024 hemog lobin A1Cbekah k A1C 6.8 % 4-6 abnormal Not Available In-Office Order Internal Use Only DO Not Attach Compendium DO Not Attach Compendium, Do Not Delete/merge, [id number] 12/20/2024 11:02:34 04/10/2004/10/2025 CMP14 +EGFR glucose 135 mg/dL 70-99 above high normal Not Available [facility] ([facility]) [address] [place], [address], 04/11/2025 06:08:08 04/10/20 25 04/10/2025 CMP14 +EGFR BUN 27 mg/dL 8-27 normal Not Available [facility] ([facility]) [address] [place], [address], 04/11/2025 06:08:08 04/10/2004/10/2025 CMP14 +EGFR creatinine 1.17 mg/dL 0.76-1 .27 normal Not Available [facility] ([facility]) [address] [place], [address], 04/11/2025 06:08:08 04/10/20 25 04/10/2025 CMP14 +EGFR eGFR 63 mL/mi n/1.7 3 >59 normal Not Available [facility] ([facility]) [address] [place], [address], 04/11/2025 06:08:08 04/10/2004/10/2025 CMP14 +EGFR BUN/creatini ne ratio 23 10-24 normal Not Available [facility] ([facility]) [address] [place], [address], 04/11/2025 06:08:08 04/10/20 25 04/10/2025 CMP14 +EGFR sodium 144 mmol/ L 134-14 4 normal Not Available [facility] ([facility]) [address] [place], [address], 04/11/2025 06:08:08 04/10/2004/10/2025 CMP14 +EGFR potassium 4.1 mmol/ L 3.5-5. 2 normal Not Available [facility] ([facility]) [address] [facility] [place], [address], 04/11/2025 06:08:08 04/10/2004/10/2025 CMP14 +EGFR chloride 106 mmol/ L 96-106 normal Not Available [facility] ([facility]) [address] [facility], [place], [address], 04/11/2025 06:08:08 04/10/2004/10/2025 CMP14 +EGFR carbon dioxide, total 22 mmol/ L 20-29 normal Not Available [facility] ([facility]) [address] [place], [address], 04/11/2025 06:08:08 04/10/20 25 04/10/2025 CMP14 +EGFR calcium 9.8 mg/dL 8.6-10 .2 normal Not Available [facility] ([facility]) [address] [place], [address], 04/11/2025 06:08:08 04/10/2004/10/2025 CMP14 +EGFR protein, total 6.0 g/dL 6.0-8. 5 normal Not Available [facility] ([facility]) [address] [place], [address], 04/11/2025 06:08:08 04/10/2004/10/2025 CMP14 +EGFR albumin 4.4 g/dL 3.8-4. 8 normal Not Available [facility] ([facility]) [address] [place], [address], 04/11/2025 06:08:08 04/10/20 25 04/10/2025 CMP14 +EGFR globulin, total 1.6 g/dL 1.5-4. 5 Not Available [facility] ([facility]) [address] [facility], [place], [address], 04/11/2025 06:08:08 04/10/2004/10/2025 CMP14 +EGFR bilirubin, total 0.7 mg/dL 0.0-1. 2 normal Not Available [facility] ([facility]) [address] [facility] [place], [address], 04/11/2025 06:08:08 04/10/20 25 04/10/2025 CMP14 +EGFR alkaline phosphatase 62 IU/L 47-123 normal Ple ase note refer ence morgan puckett Not Available [facility] ([facility]) [address] [facility], [place], [address], 04/11/2025 06:08:08 04/10/20 25 04/10/2025 CMP14 +EGFR AST (SGOT) 36 IU/L 0-40 normal Not Available [facility] ([facility]) [address] [facility], [place], [address], 04/11/2025 06:08:08 04/10/2004/10/2025 CMP14 +EGFR ALT (SGPT) 30 IU/L 0-44 normal Not Available [facility] ([facility]) [address] [facility], [place], [address], 04/11/2025 06:08:08 04/10/2004/10/2025 hemog lobin A1C, finge rstic k A1C 6.2 % 4-6 abnormal Not Available In-Office Order Internal Use Only DO Not Attach Compendium DO Not Attach Compendium, Do Not Delete/merge, [id number] 04/10/2025 11:28:24 05/16/2005/17/2025 TSH+F REE T4 TSH 4.340 uIU/m L 0.450- 4.500 normal Not Available [facility] ([facility]) [address] [facility], [place], [address], 05/17/2025 08:07:42 05/16/2005/17/2025 TSH+F REE T4 T4,free(dire ct) 1.39 NG/dL 0.82-1 .77 normal Not Available [facility] ([facility]) [address] [place], [address], 05/17/2025 08:07:42 05/16/2005/17/2025 FSH AND LH LH 9.3 mIU/m L 1.7-8. 6 above high normal Not Available [facility] ([facility]) [address] [place], [address], 05/17/2025 08:07:43 05/16/2005/17/2025 FSH AND LH FSH 17.9 mIU/m L 1.5-12 .4 above high normal Not Available [facility] ([facility]) [address] [place], [address], 05/17/2025 08:07:43 05/16/2005/17/2025 TESTO STERO NE,FR EE AND TOTAL testosterone 538 NG/dL 264-91 6 normal Adult male refer ence inter david is based on a popul ation of healt hy nonob loi males (BMI <30) betwe en 19 and 39 years old. Sven garza, et.al . JCEM 2017, 102;1 161-1 173. PMID: 43207 103. Not Available [facility] ([facility]) [address] [place], [address], 05/17/2025 08:07:43 05/16/2005/17/2025 TESTO STERO NE,FR EE AND TOTAL free testosterone (direct) 2.4 pg/mL 6.6-18 .1 below low normal Not Available [facility] ([facility]) [address] [place], [address], 05/17/2025 08:07:43 05/16/2005/17/2025 PROLA CTIN prolactin 11.2 NG/mL 3.6-25 .2 normal Not Available [facility] ([facility]) [address] [facility], [place], [address], 05/17/2025 08:07:43 05/16/20 25 05/17/2025 ESTRA DIOL estradiol 26.2 pg/mL 7.6-42 .6 normal Chuy ECLIA metho dolog y Not Available [facility] ([facility]) [address] [facility], [place], [address], 05/17/2025 08:07:44 07/03/20 24 05/21/2024 CT, abdom en + pelvi s, w/ contr ast No observ ation record ed. [email or web address] Not Available 06/25 10:11:15 07/03/20 24 05/23/2024 MRI, abdom en, w/wo contr ast No observ ation record ed. [email or web address] Not Available 06/25 10:11:15 07/04/20 24 07/03/2024 PET-C T, whole body scan No observ ation record ed. [email or web address] [facility] [address] [place], [address], 07/24/2024 12:27:11 12/05/19 25 11/27/2024 nm cardi ac pyp amylo id study No observ ation record ed. [facility]/S Dept [address], [place], [address], 12/04/2024 17:15:14 05/07/2005/07/2025 mm digit al mammo [...] on: Clinic al follow -up. Examin ation [id number] and [id number]. BI-RAD S 2 benign findin gs. Letter L3. Thank you for sukhdeep patel me to partic unrulyte in the care of this patien t. WSN: [id number] Rocky patel Physic sherrie: Asim Alan Dictdanilo ed By: Yong Kitchen MD Dictdanilo ed Date/T ryne: 4:02 pm Review ed By: Yong Kitchen MD Signed By: Yong Kitchen MD Signed Date/T ryne: 4:02 pm Transc ribed By: CSKristel Transc riptio n Date/T ryne: 3:48 pm Birads : Paticachorro t [facility]: [facility] [address], [place], [address], 05/22/2025 11:24:46 05/08/2005/07/2025 US, breas t, limit ed A D D E N D U M as of: [id number] Histor y: Palpab le left breast mass. WSN: [id number] Rocky patel Physic sherrie: Asim Alan [...] on: Clinic al follow -up. Examin ation [id number] and [id number]. BI-RAD S 2 benign findin gs. Letter L3. Thank you for sukhdeep patel me to partic unrulyte in the care of this my t. WSN: [id number] Rocky patel Physic sherrie: Asim Alan Dictat ed By: Yong Kitchen MD Dictat ed Date/T ryne: 4:02 pm Review ed By: Yong Kitchen MD Signed By: Yong Kitchen MD Signed Date/T ryne: 4:02 pm Transc ribed By: WENDY Transc ribed Date/T ryen: 3:48 pm Patien t Class: Outpat ient [facility] (Outpt Imaging) [address] [place], [address], 05/24/2025 08:52:46 Result Notes None recorded. 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 NELIDA Velazquez, 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 3 09:16:07 [facility] hyperten gregg 35941715 Completed 10/14/2016 Removal Reason: Not Specific Jaimie Calabrese [facility], [facility] 7 11:19:03 Pure hypercho lesterol emia 205614033 Completed 07/08/2016 Asim Pelaez MD [address] [facility], [place], [address] , [facility] 6 11:36:23 Inflamma tory polyarth ropathy 918796799 [facility] 09:16:07 Malignan t neoplasm of prostate 754680698 Active Coral 6, prostate ctomy. NELIDA Mena, [facility] 3 09:16:07 Nocturia 244108570 [facility] 09:16:07 Pain in toe 979655339 Completed 12/02/2023 Inez cobos [place] [facility], [facility] 4 09:52:02 Disorder of vein Completed 200702/06/2014 DATE: 06/2008; RECORDED 04/21/20 12 10:11AM BY ASIM ALCARZA MD, ANNOTATI ON/ADDEN WILLIS Pelaez MD [address], [place], [address] , [facility] 6 09:07:17 Disorder of vein Completed 200703/01/2014 DATE: 06/2008; RECORDED 04/21/20 12 10:11AM BY ASIM ALCARAZ MD, ANNOTATI ON/ADDEN DUM Asim Pelaez MD [address], [place], [address] , [facility] 6 09:07:17 Disorder of vein Completed 200703/02/2014 DATE: 06/2008; RECORDED 04/21/20 12 10:11AM BY ASIM ALCARAZ MD, ANNOTATI ON/ADDEN DUM Asim Pelaez MD [address], [place], [address] , [facility] 6 09:07:17 Chest pain 59757497 Completed 201102/06/2014 RECORDED 04/21/20 12 9:26AM BY LISETTE DAVENPORT ON/ADDEN DUM Bebeto Kelley [facility] 3 08:29:01 Screenin g for malignan t neoplasm of colon Completed 201102/06/2014 RECORDED 04/21/20 12 9:26AM BY LISETTE DAVENPORT ON/ADDEN WILLIS Pelaez MD [address], [place], [address] , [facility] 6 09:07:17 Cough 50701705 Completed 201102/06/2014 RECORDED 04/21/20 12 9:26AM BY LISETTE DAVENPORT ON/ADDEN WILLIS Pelaez MD [address], [place], [address] , [facility] 6 09:07:16 Hypercho lesterol emia 63397415 Completed 201102/06/2014 RECORDED 04/21/20 12 9:26AM BY LISETTE DAVENPORT ON/CHIDI Pelaez MD [address], [place], [address] , [facility] 6 09:07:16 Pure hypergly ceridemi a 052561262 Completed 201102/06/2014 RECORDED 04/21/20 12 9:27AM BY LISETTE DAVENPORT ON/CHIDI Pelaez MD [address] [facility] [address], [place], [address] , [facility] 6 09:07:16 Sciatica 49500595 Completed 201102/06/2014 RECORDED 04/21/20 12 9:26AM BY LISETTE DAVENPORT/CHIDI Pelaez MD [address], [place], [address] , [facility] 6 09:07:16 Dyspnea 043962327 Completed 201102/06/2014 RECORDED 04/21/20 12 9:26AM BY LISETTE DAVENPORT ON/ADDEN WILLIS cobos [place] [facility] 7 13:48:20 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 3 08:29:01 Screenin g for malignan t neoplasm of colon Completed 201103/01/2014 RECORDED 04/21/20 12 9:26AM BY LISETTE DAVENPORT ON/ADDEN WILLIS Pelaez MD [address] [facility] [address], [place], [address] , [facility] 6 09:07:17 Cough 86777861 Completed 201103/01/2014 RECORDED 04/21/20 12 9:26AM BY LISETTE DAVENPORT ON/ADDEN WILLIS Pelaez MD [address], [place], [address] , [facility] 6 09:07:16 Hypercho lesterol emia 23265485 Completed 201103/01/2014 RECORDED 04/21/20 12 9:26AM BY LISETTE DAVENPORT ON/ADDEN WILLIS Pelaez MD [facility] [address], [place], [address] , [facility] 6 09:07:16 Pure hypergly ceridemi a [id number] Completed 201103/01/2014 RECORDED 04/21/20 12 9:27AM BY LISETTE DAVENPORT ON/ADDEN DUM Asim Pelaez MD [address] [facility] [address], [place], [address] , [facility] 6 09:07:16 Sciatica [id number] Completed 201103/01/2014 RECORDED 04/21/20 12 9:26AM BY LISETTE DAVENPORT ON/ADDEN DUM Asim Pelaez MD [address] [facility] [address], [place], [address] , [facility] 6 09:07:16 Dyspnea [id number] Completed 201103/01/2014 RECORDED 04/21/20 12 9:26AM BY LISETTE DAVENPORT ON/ADDEN DUM InezNELIDA Oliva, 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, cornea, retina and choroid 466668219 Completed 201103/01/2014 STORY: DIAGNOSE D AND TREATED 2006; RECORDED 04/21/20 12 9:27AM BY LISETTE DAVENPORT ON/CHIDI Pelaez MD [address], [place], [address] , [facility] 6 09:07:16 Chest pain 00213060 Completed 201103/02/2014 RECORDED 04/21/20 12 9:26AM BY LISETTE DAVENPORT ON/CHIDI [facility]01 Screenin g for malignan t neoplasm of colon Completed 201103/02/2014 RECORDED 04/21/20 12 9:26AM BY LISETTE DAVENPORT ON/CHIDI Pelaez MD [address], [place], [address] , [facility] 6 09:07:17 Cough [id number] Completed 201103/02/2014 RECORDED 04/21/20 12 9:26AM BY LISETTE DAVENPORT/CHIDI Pelaez MD [address], [place], [address] , [facility] 6 09:07:16 Hypercho lesterol emia [id number] Completed 201103/02/2014 RECORDED 04/21/20 12 9:26AM BY LISETTE DAVENPORT/CHIDI Pelaez MD [address], [place], [address] , [facility] 6 09:07:16 Pure hypergly ceridemi a [id number] Completed 201103/02/2014 RECORDED 04/21/20 12 9:27AM BY LISETTE DAVENPORT ON/ADDEN WILLIS Pelaez MD [address], [place], [address] , [facility] 6 09:07:16 Sciatica [id number] Completed 201103/02/2014 RECORDED 04/21/20 12 9:26AM BY ELVER DAVENPORTATI ON/ADDEN WILLIS Pelaez MD [address] [facility] [address], [place], [address] , [facility] 6 09:07:16 Dyspnea 912772067 Completed 201103/02/2014 RECORDED 04/21/20 12 9:26AM BY LISETTE DAVENPORT ON/ADDEN DUM Inez NELIDA Galleogs, 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, cornea, retina and choroid 930147218 Completed 201103/02/2014 STORY: DIAGNOSE D AND TREATED 2006; RECORDED 04/21/20 12 9:27AM BY LISETTE DAVENPORT ON/CHIDI Pelaez MD [address] [facility] [address], [place], [address] , [facility] 6 09:07:16 Hyperten sive disorder 63852435 Completed 201102/13/2021 Asim Pelaez MD [address] [facility] [address], [place], [address] , [facility] 1 10:27:48 Diabetes mellitus 72347886 Completed 201101/08/2021 Asim Pelaez MD [address] [facility] [address], [place], [address] , [facility] 2 10:51:06 Hyperten sive disorder 20411834 Active 2011 Not Available [facility] 2 09:44:50 Influenz a vaccine needed 73785827219 06 Completed 201102/06/2014 RECORDED 07/22/20 12 11:42AM BY TERRIE PAZ MA, LISETTE CROSS/CHIDI Pelaez MD [address] [facility] [address], [place], [address] , [facility] 6 09:07:16 Renewal of prescrip tion Completed 201102/06/2014 RECORDED 07/22/20 12 11:42AM BY TERRIE PAZ MA, ANNOTATI ON/CHIDI Pelaez MD [address] [facility] [address], [place], [address] , [facility] 6 09:07:17 Influenz a vaccine needed [id number] 06 Completed 201103/01/2014 RECORDED 07/22/20 12 11:42AM BY TERRIE PAZ MA, ANNOTATI ON/CHIDI Pelaez MD [address] [facility] [address], [place], [address] , [facility] 6 09:07:16 Renewal of prescrip tion Completed 201103/01/2014 RECORDED 07/22/20 12 11:42AM BY TERRIE PAZ MA, ANNOTATI ON/CHIDI Pelaez MD [address] [facility] [address], [place], [address] , [facility] 6 09:07:17 Influenz a vaccine needed [id number] 06 Completed 201103/02/2014 RECORDED 07/22/20 12 11:42AM BY TERRIE PAZ MA, ANNOTATI ON/CHIDI Pelaez MD [address] [facility] [address], [place], [address] , [facility] 6 09:07:16 Renewal of prescrip tion Completed 201103/02/2014 RECORDED 07/22/20 12 11:42AM BY TERRIE PAZ MA, ANNOTATI ON/ADDEN DUM Asim Pelaez MD [address] [address], [place], [address] , [facility] 6 09:07:17 Rheumato id arthriti s 22527055 Active [address] Chao ; on methotre xate; hydroxyc hloroqui ne and predniso ne. No Calvillo [place] [facility] 5 11:28:46 Low back pain 996163423 Active 2012 Seen at [facility]; will have MRI and then injectio n. Also seen a Pain Mgmt and had help with injectio n under flurosco py. Andria Hammer MA null, [facility] 3 09:16:07 Active or passive immuniza tion Completed 201202/06/2014 RECORDED 07/28/19 13 3:24PM BY ASIM ALCARAZ MD, OFFICE VISIT Asim Pelaez MD [address] [address], [place], [address] , [facility] 6 09:07:16 Active or passive immuniza tion Completed 201203/01/2014 RECORDED 07/28/19 13 3:24PM BY ASIM ALCARAZ MD, OFFICE VISIT Asim Pelaez MD [address] [address], [place], [address] , [facility] 6 09:07:17 Active or passive immuniza tion Completed 201203/02/2014 RECORDED 07/28/19 13 3:24PM BY ASIM ALCARAZ MD, OFFICE VISIT Asim Pelaez MD [address] [address], [place], [address] , [facility] 6 09:07:17 Divertic ulitis of colon 991681595 Completed 201202/06/2014 RECORDED 08/11/19 13 9:58AM BY ASIM ALCARAZ MD, ANNOTATI ON/ADDEN DUM Asim Pelaez MD [address] [facility] [address], [place], [address] , [facility] 6 09:07:16 Divertic ulitis of colon 586538734 Completed 201203/01/2014 RECORDED 08/11/19 13 9:58AM BY ASIM ALCARAZ MD, LISETTE ON/ADDEN WILLIS Pelaez MD [address] [facility] [address], [place], [address] , [facility] 6 09:07:16 Divertic ulitis of colon 135443445 Completed 201203/02/2014 RECORDED 08/11/19 13 9:58AM BY ASIM ALCARAZ MD, LISETTE ON/ADDEN WILLIS Pelaez MD [address] [facility] [address], [place], [address] , [facility] 6 09:07:16 Administ ration of diphther ia and tetanus vaccine Completed 201202/06/2014 RECORDED 08/13/19 13 9:50AM BY LAZARUS BONDS I, LISETTE ON/ADDEN WILLIS Pelaez MD [address] [facility] [address], [place], [address] , [facility] 6 09:07:17 Administ ration of diphther ia and tetanus vaccine Completed 201203/01/2014 RECORDED 08/13/19 13 9:50AM BY LAZARUS BONDS I, LISETTE ON/ADDEN WILLIS Pelaez MD [address] [facility] [address], [place], [address] , [facility] 6 09:07:17 Administ ration of diphther ia and tetanus vaccine Completed 201203/02/2014 RECORDED 08/13/19 13 9:50AM BY LISETTE DAVENPORT ON/CHIDI Pelaez MD [address] [facility] [address], [place], [address] , [facility] 6 09:07:17 Shoulder joint pain 855951143 Completed 201202/06/2014 IMPRESSI ON: DOUBT PMR GIVEN THE LACK OF OTHER SX. PROBABLE TENDINIT IS/BURSI TIS. HE MAY BENEFIT FROM INJECTIO N.; RECORDED 11/22/19 13 9:39AM BY LISETTE DAVENPORT ON/CHIDI Pelaez MD [address] [facility] [address], [place], [address] , [facility] 6 09:07:16 Shoulder joint pain 543945498 Completed 201203/01/2014 IMPRESSI ON: DOUBT PMR GIVEN THE LACK OF OTHER SX. PROBABLE TENDINIT IS/BURSI TIS. HE MAY BENEFIT FROM INJECTIO N.; RECORDED 11/22/19 13 9:39AM BY LISETTE DAVENPORT ON/CHIDI Pelaez MD [address] [facility] [address], [place], [address] , [facility] 6 09:07:16 Shoulder joint pain 970723975 Completed 201203/02/2014 IMPRESSI ON: DOUBT PMR GIVEN THE LACK OF OTHER SX. PROBABLE TENDINIT IS/BURSI TIS. HE MAY BENEFIT FROM INJECTIO N.; RECORDED 11/22/19 13 9:39AM BY LISETTE DAVENPORT ON/CHIDI Pelaez MD [address] [address], [place], [address] , [facility] 6 09:07:16 Dermatop hytosis of scalp or nava Completed 201202/06/2014 IMPRESSI ON: ADVISED TO USE OTC CLOTRIMA ZOLE AND TO SHOW HIS DERMATOL OGIST, DR BASS WHO HE WILL BE SEEING IN 3 WEEKS IF IT IS STILL PRESENT. ; RECORDED 02/02/20 13 11:43AM BY LISETTE DAVENPORT/CHIDI Pelaez MD [address], [place], [address] , [facility] 6 09:07:16 Dermatop hytosis of scalp or nava Completed 201203/01/2014 IMPRESSI ON: ADVISED TO USE OTC CLOTRIMA ZOLE AND TO SHOW HIS DERMATOL OGIST, DR BASS WHO HE WILL BE SEEING IN 3 WEEKS IF IT IS STILL PRESENT. ; RECORDED 02/02/20 13 11:43AM BY LISETTE DAVENPORT/CHIDI Pelaez MD [address], [place], [address] , [facility] 6 09:07:16 Dermatop hytosis of scalp or nava Completed 201203/02/2014 IMPRESSI ON: ADVISED TO USE OTC CLOTRIMA ZOLE AND TO SHOW HIS DERMATOL OGIST, DR BASS WHO HE WILL BE SEEING IN 3 WEEKS IF IT IS STILL PRESENT. ; RECORDED 02/02/20 13 11:43AM BY LISETTE DAVENPORT/CHIDI Pelaez MD [address], [place], [address] , [facility] 6 09:07:16 Hydronep hrosis 18253429 Active [address] Duncan pt will make a f[facility] with [facility] 09:16:07 Laborato ry procedur e performe d 993071799 Completed 201302/06/2014 RECORDED 08/09/19 14 1:05PM BY LISETTE DAVENPORT ON/CHIDI Pelaez MD [address] [facility] [address], [place], [address] , [facility] 6 09:07:17 Overweig ht [id number] Completed 201302/06/2014 RECORDED 11/09/19 14 9:28AM BY LISETTE DAVENPORT ON/CHIDI Pelaez MD [address], [place], [address] , [facility] 6 09:07:16 Tobacco user [id number] Completed 201302/06/2014 RECORDED 11/09/19 14 9:28AM BY LISETTE DAVENPORT ON/CHIDI Pelaez MD [address] [facility] [address], [place], [address] , [facility] 6 09:07:16 History of clinical finding in subject 410121004 Completed 201303/21/2014 RECORDED 11/09/19 14 9:28AM BY LISETTE DAVENPORT/CHIDI Pelaez MD [address] [facility] [address], [place], [address] , [facility] 6 09:07:17 Adult health examinat ion Completed 201302/06/2014 RECORDED 11/09/19 14 9:28AM BY LISETTE DAVENPORT ON/CHIDI Pelaez MD [address] [facility] [address], [place], [address] , [facility] 6 09:07:17 Overweig ht [id number] Completed 201303/01/2014 RECORDED 11/09/19 14 9:28AM BY LISETTE DAVENPORT ON/CHIDI Pelaez MD [address], [place], [address] , [facility] 6 09:07:16 Tobacco user [id number] Completed 201303/01/2014 RECORDED 11/09/19 14 9:28AM BY LISETET DAVENPORT ON/CHIDI Pelaez MD [address], [place], [address] , [facility] 6 09:07:16 Adult health examinat ion Completed 201303/01/2014 RECORDED 11/09/19 14 9:28AM BY LISETTE DAVENPORT ON/CHIDI Pelaez MD [address] [facility] [address], [place], [address] , [facility] 6 09:07:17 [facility]t [id number] Completed 201303/02/2014 RECORDED 11/09/19 14 9:28AM BY LISETTE DAVENPORT ON/CHIDI Pelaez MD [address] [facility] [address], [place], [address] , [facility] 6 09:07:16 Tobacco user [id number] Completed 201303/02/2014 RECORDED 11/09/19 14 9:28AM BY LISETTE DAVENPORT ON/CHIDI Pelaez MD [address] [facility] [address], [place], [address] , [facility] 6 09:07:16 Adult health examinat ion Completed 201303/02/2014 RECORDED 11/09/19 14 9:28AM BY LISETTE DAVENPORT ON/CHIDI Pelaez MD [address] [facility] [address], [place], [address] , [facility] 6 09:07:17 Laborato ry procedur e performe d [id number] Completed 201303/21/2014 RECORDED 11/24/19 14 10:44AM BY LUKE NOLEN, LAB REQ Asim Pelaez MD [address] [facility] [address], [facility] [place], [address] , [facility] 6 09:07:17 Hyperlip idemia 98455690 Active 2015 Not Available [facility] 2 09:44:50 Dyspnea 703184769 Active 2016 NELIDA Mena, [facility] 3 09:16:07 Hyperten sive renal disease 17012996 Active 2016 NELIDA Mena, [facility] 3 09:16:07 Lumbosac ral spondylo sis without myelopat hy 75253864 Active 2016 Followed by Pain Mgmt NELIDA Mena, [facility] 3 09:16:08 Stable angina 632661298 Active 2016 Mid LAD lesion 60% stenosis , reduced NELIDA Velazquez, [facility] 5 11:28:46 Coronary arterios clerosis 09996634 Active 2016 s/p KEYON to LAD May 2017. Had a cardiac w/u September 2020 which was negative for ischemia . Also no signific ant progress ion on cath April 2024 NELIDA Velazquez, [facility] 5 11:28:46 Chest pain 76432980 Completed 201709/02/2022 Admitted bisi t to [facility] and ruled out. NELIDA Mark, [facility] 3 08:29:01 Insomnia 106719180 Active 2017 NELIDA Mena, [facility] 3 09:16:07 Eczema 39314402 Active 2017 NELIDA Mena, [facility] 3 09:16:08 Neuropat hy due to diabetes mellitus 389777872 Active 2017 Not Available [facility] 2 09:44:50 Inflamma tion of sacroili ac joint 37511172 Active 2017 Followed by Pain Mgmt; right sided NELIDA Mena, [facility] 3 09:16:08 Basal cell carcinom a of skin 616376068 Active 2017 NELIDA Mena, [facility] 3 09:16:07 Spinal stenosis of lumbar region 55782094 Active 2017 Schedule d for surgery with NELIDA Oneal, [facility] 5 11:28:45 Malignan t melanoma of eye 681757781 Active 2017 Treated at [facility] NELIDA Mena, [facility] 3 09:16:07 Chronic kidney disease due to hyperten gregg 53887447470 9100 Completed 201902/13/2021 Asim Pelaez MD [address] [facility] [address], [place], [address] , [facility] 1 10:27:38 Chronic kidney disease due to hyperten gregg 83194851101 9100 Active 2019 Not Available [facility] 2 09:44:50 Squamous cell carcinom a of skin 553620452 Active 2019 NELIDA Mena, [facility] 3 09:16:07 Type 2 diabetes mellitus 69655782 Completed 202001/08/2021 Rochelle Tong PA-C [address] [facility] [address], [place], [address] , [facility] 1 10:58:00 Major depressi ve disorder 416110515 Active 2020 NELIDA Mena, [facility] 3 09:16:07 Renal disorder due to type 1 diabetes mellitus 803974530 Completed 202001/08/2021 Asim Pelaez MD [address] [facility] [address], [place], [address] , [facility] 2 10:48:06 Hyperten gregg monitori ng status 227259865 Active 2021 disenrol led NELIDA Mena, [facility] 3 09:16:07 Expressi ve language disorder 408741109 Active 2021 NELIDA Mena, [facility] 3 09:16:07 History of malignan t neoplasm of eye 18346058543 9106 Active 2021 NELIDA Mena, [facility] 3 09:16:07 Chronic kidney disease stage 3B 317944123 Active 2021 NELIDA Mena, [facility] 3 09:16:08 History of SARS-CoV -2 60890029482 1234855 Active 2021 Also tested positive in July. Took paxlovid . NELIDA Mena, [facility] 3 09:16:07 Pneumoni tis 619133685 Active 2022 NELIDA Mena, [facility] 3 09:16:07 Chronic insomnia 750624606 Active 2022 NELIDA Mena, 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 As of 2024 this has been failing and another procedur e was not approved by his insuranc e. Asim Pelaez MD [address], [place], [address] , [facility] 5 08:22:08 Glaucoma suspect 402613556 Active 2022 Asim Pelaez MD [address], [place], [address] , [facility] 3 14:44:21 Mild neurocog nitive disorder 535132300 Active 2023 Seen by memory disorder s clinic July 2023. Recommen ded aricept. Will be followed every 6 months. Asim Pelaez MD [address], [place], [address] , [facility] 4 10:43:14 COVID-19 058255639 Completed 202312/02/2023 Inez cobos MA null, [facility] 4 14:25:14 Right bundle branch block 11050678 Active 2023 Inez cobos [place] null, [facility] 4 09:51:00 COVID-19 008765681 Completed 202301/13/2024 Inez cobos [place] null, [facility] 4 14:25:14 Prolonge d QT interval 132099504 Active 2023 Zach Espinoza [facility] [address], [place], [address] , [facility] 4 10:08:16 Hypokale jaki 54965745 Active 2023 [facility] [address] [facility] [address], [place], [address] , [facility] 4 10:19:28 Hypomagn esemia 945633944 Active 2023 [facility] [address] [facility] [address], [place], [address] , [facility] 4 09:11:21 Minimal cognitiv e impairme nt 764115895 Active 2023 Asim Pelaez MD [address] [facility] [address], [place], [address] , [facility] 4 08:18:00 Nonische favian congesti ve cardiomy opathy 96193366504 4 Active 2024 EF 40-45 % December 2023 NYHA II Asim Pelaez MD [address] [facility] [address], [place], [address] , [facility] 5 15:12:42 Problem Notes None recorded. Procedures Surgical History Date Name Laterality Status Provider Name and Address Organization Details Recorded Time 07/05/20 diabetic retinopathy screening completed Carmen Ovalle [facility] 07/07/2024 09:12:31 04/10/20 24 angiography of coronary artery completed Carmen Ovalle [facility] 04/11/2024 08:19:41 01/19/20 24 Echo transthoracic completed Carmen Ovalle [facility] 01/24/2024 11:20:55 10/14/19 24 Diabetic Foot Exam (Monofilament) completed Asim Pelaez MD [address] [facility] [address], [place], [address], [facility] 10/14/2023 19:20:00 08/13/19 24 lumbar epidural steroid injection completed Carmen Ovalle [facility] 08/13/2023 09:37:49 06/29/20 23 Diabetic Foot Exam (Monofilament) completed Asim Pelaez MD [address] [address], [place], [address], [facility] 06/30/2023 17:53:16 11/11/19 23 shoulder injection completed Carmen Ovalle [facility] 11/11/2022 08:43:04 09/24/19 23 injection into lumbar epidural space completed Carmen Ovalle [facility] 09/28/2022 09:37:54 09/11/19 23 Cardiovascular stress test completed Carmen Ovalle [facility] 09/17/2022 11:02:40 10/24/19 22 Diabetic Foot Exam (Monofilament) completed Andria Hammer MA [facility] 10/23/2021 11:16:59 07/24/20 21 Egd biopsy single/multiple completed Asim Pelaez MD [address], [address], [facility] 08/12/2021 16:56:25 07/24/20 21 Colonoscopy with biopsy completed Asim Pelaez MD [address] [address], [place], [address], [facility] 08/12/2021 16:57:51 03/25/20 21 Diabetic Foot Exam (Monofilament) completed Nohemi Bazan MA [facility] 03/25/2021 11:13:46 01/09/20 21 Diabetic Foot Exam (Monofilament) completed Terrie Paz MA [facility] 01/08/2021 10:23:01 08/13/19 21 Diabetic Foot Exam (Monofilament) completed Asim Pelaez MD [address], [address], [facility] 08/13/2020 12:09:58 04/24/20 20 Diabetic Foot Exam (Monofilament) completed Lilibeth Monroy MA [facility] 04/24/2020 09:52:20 04/23/20 20 excision of scalp mass completed [facility] 04/24/2020 09:44:15 04/23/20 20 local advancement flap completed [facility] 04/24/2020 09:42:54 04/23/20 20 chest wall excision completed [facility] 04/24/2020 09:44:07 04/23/20 20 local advancement flap completed [facility] 04/24/2020 09:49:10 01/23/20 20 Six-Item Cognitive Test completed Lazarus Reynolds [facility] 01/23/2020 09:36:41 04/24/20 19 Diabetic Foot Exam (Monofilament) completed Lazarus Reynolds [facility] 04/24/2019 13:22:41 02/16/20 19 injection completed Rahel Nolen [facility] 02/17/2019 11:21:50 01/21/20 19 Mini-Cog Test completed Aggie Serra MA [facility] 01/20/2019 11:03:37 10/06/19 19 Diabetic Foot Exam (Monofilament) completed Terrie Paz MA [facility] 10/05/2018 12:57:34 06/14/20 18 Tte w/doppler complete completed Jacquelin Kurtz [facility] 06/17/2018 13:46:06 05/23/20 18 primary transforaminal interbody fusion of joint of lumbar spine completed Rahel Nolen [facility] 05/27/2018 11:57:33 03/07/20 18 Diabetic Foot Exam (Monofilament) completed Aggie Serra MA [facility] 03/07/2018 10:50:50 02/16/20 18 Njx interlaminar lmbr/sac completed Rahelwinston Nolen [facility] 02/18/2018 15:41:25 12/09/19 18 Diabetic Foot Exam (Monofilament) completed Asim Pelaez MD [address], [place], [address], [facility] 12/08/2017 13:04:41 08/24/19 18 Excision of Melanoma completed Orquidea Thomas [facility] 09/11/2017 11:27:03 05/26/20 17 Coronary artery angio s&i completed Asim Pelaez MD [address] [facility] [address], [place], [address], [facility] 05/27/2017 07:01:15 06/10/20 16 Hydrocortisone acetate inj completed Lazarus Reynolsd [facility] 06/22/2016 16:22:06 10/16/19 16 Advanced Care Planning completed Lazarus Reynolds [facility] 10/16/2015 11:04:00 03/27/20 15 Mini-Cog Test completed Lazarus Reynolds [facility] 03/27/2015 13:22:16 03/26/20 11 Orthopedic Surgery completed Lazarus Reynolds [facility] 10/16/2015 10:51:26 11/24/19 07 Joint Replacement completed Lazarus Reynolds [facility] 10/16/2015 10:51:26 07/26/19 04 Prostate Surgery completed Lazarus Reynolds [facility] 10/16/2015 10:51:26 07/26/19 03 Vasectomy completed Asim Pelaez MD [address] [facility] [address], [place], [address], [facility] 04/02/2014 09:14:24 04/25/19 90 Other completed Lazarus Reynolds [facility] 10/16/2015 10:51:26 Other completed Lazarus Reynolds [facility] 10/16/2015 10:51:26 Other completed Radha Wilson [facility] 03/21/2014 08:21:55 Imaging Results None recorded. Procedure Notes None recorded. Medical Equipment None Reported. Allergies Allergen ID Allergen Name Allergen Category Reaction Reaction Severity Criticality Documentation Date Start Date Code Code System Note Provider Name and Address Organization Details Recorded Time 06462 lisinopri l medicatio n cough Not available Not available 02/26/20172013 22577 RxNorm No NELIDA Calvillo, [facility] 5 11:28:38 68087 metformin medicatio n abdominal pain moderate Not available 01/08/2021 6809 RxNorm Rochelle Tong PA-C [address] [facility] [address] [address] , [facility] 1 11:05:54 3633 Product containin g angiotens in-conver ting enzyme inhibitor (product) medicatio n cough Not available Not available 02/06/20142013 61304 009 SNOMED NELIDA Davila, [facility] 1 10:23:34 Medications Name Sig Start Date [...] 14 1:39PM BY ASIM ALCARAZ MD, ANNOTATI ON/ADD DUM; Not Available Not Available Not Available [...] Available prednisol one acetate 1 % eye drops,[facility] LOCATION : LEFT EYE. ONE DROP TO [...] DAYS 08/26 completed Not safe in the [facility]. Not Available Not Available Not Available furosemid [...] 3:17PM BY ASIM ALCARAZ MD, ANNOTATI ON/CHIDI PEDRO; Not Available Not Available Not Available eszopiclo [...] Available Not Available Not Available Fluzone High-Dose 2018- (PF) 180 mcg/0.5 mL intramusc ular syringe inject 0.5 millilit ers intramus cularly 04/24 completed Not Available Not Available Not Available Fluad Quad 6985-6589 (65yr up)(PF) 60 mcg (15 mcg x [...] Updated DateTime 5 175.26 cm 23.2 kg/m2 95638 g 88 /min 98 % 97.2 [degF] 138/82 mm[Hg] Radha powers MA [facility] 5 11:20:33 Date Recorded Body height Body mass index (BMI) Body weight Heart rate Oxygen saturation Body temperature Systolic And Diastolic Provider Name and Address Organization Details Last Updated DateTime 5 175.26 cm 22.4 kg/m2 92103.0 4 g 53 /min 99 % 97.7 [degF] 137/58 mm[Hg] No Calvillo MA [facility] 5 11:11:08 Date Recorded Body height Body mass index (BMI) Body weight Heart rate Oxygen saturation Body temperature Systolic And Diastolic Provider Name and Address Organization Details Last Updated DateTime 5 175.26 cm 21.9 kg/m2 84320.6 7 g 66 /min 96 % 97.6 [degF] 124/66 mm[Hg] No Calvillo MA [facility] 5 11:33:55 Date Recorded Body height Body mass index (BMI) Body weight Heart rate Oxygen saturation Body temperature Systolic And Diastolic Provider Name and Address Organization Details Last Updated DateTime 4 175.26 cm 21.4 kg/m2 34052.8 9 g 70 /min 99 % 97.9 [degF] 161/73 mm[Hg] Katerine Sandoval LPN [facility] 4 10:55:26 Social History Question Answer Notes LastModified by Organizat ion Details LastModified Time Tobacco Smoking Status Former Smoker not since 1974 NELIDA Mark, [facility] 09/02/2022 09:17:56 Do You Have An Advance Directive? Yes Information not available 06/29/2023 Animal Exposure? Yes Informat ion not available 06/29/2023 Do You Wear A Helmet When Biking? Yes Information not available 06/29/2023 Is Blood Transfusion Acceptable In An Emergency? Yes [id number] Information not available 05/28/2020 What Is Your Level Of Caffeine Consumption? Moderate Two 6 Oz Cups Coffee Daily Information not available 01/13/2024 How Much Tobacco Do You Chew? None [id number] Information not available 05/28/2020 What Type Of Diet Are You Following? DIABETIC [id number] Information not available 05/28/2020 Which Illicit Or Recreational Drugs Have You Used? None [id number] Information not available 05/28/2020 Education 12 Information [...] Take Precautions To Prevent Distracted Driving? Yes Information not available 10/16/2015 How Often Do You Need To Have Someone Help You When You Read Instructions, Pamphlets, Or Other Written Material From Your Doctor Or Pharmacy? Never Information not available 10/16/2015 Have You Served In The ? No [email or web address] Information not available 10/12/2016 Have You Or Anyone In Your Household Had Any Of The Following Symptoms In The Last 14 Days: Sore Throat, Cough, Chills, Body Aches For Unknown Reasons, Shortness Of Breath For Unknown Reasons, Loss Of Smell, Loss Of Taste, Fever At Or Greater Than 100 Degrees Fahrenheit? No [employer] Information not available 01/23/2020 Are You Or Anyone In Your Household A Health Care Provider Or Emergency Responder? No [employer] Information not available 01/23/2020 To The Best Of Your Knowledge Have You Been In Close Proximity To Any Individual Who Tested Positive For COVID-19? No [employer] Information not available 01/23/2020 Have You Recently [...] Daughter; 1 Grandchild; Daughter Of Cancer 2018 [id number] Information not available 05/28/2020 Difficulty Reading? No Information not available 06/29/2023 Seat Belts Used Routinely Yes Information not available 06/29/2023 Are You Sexually Active? No (Nila) Information not available 01/13/2024 Smoke Alarm In Home Yes Information not available 06/29/2023 Are You Passively Exposed To Smoke? No Information not available 10/16/2015 How Much Tobacco Do You Smoke? No [id number] Information not available 05/28/2020 What Types Of Sporting Activities Do You Participate In? Fishing&bik ing Information not available 06/29/2023 Do You Use Sunscreen Routinely? Yes [id number] Information not available 05/28/2020 Do You Have [...] used smokeless tobacco? Never used smokeless tobacco [id number] Information not available 05/28/2020 Are you currently employed? 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 No Information not available 06/29/2023 Are you able to walk independently without assistance or assistive devices? YESWOREST Information not available 06/29/2023 Are you able to care for yourself independently? 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 No Information not available 06/29/2023 Do you or have you ever used e-cigarettes or vape? Never used electronic cigarettes Information not available 06/29/2023 What is your exercise level? Occasional [id number] Information not available 05/28/2020 Mental Status Question Answer Note LastModified by Organization D etails LastModified Time Do you have difficulty concentrating, remembering or making decisions? No Information no t available 06/29/2023 Family History Relationship Description Onset Age of this Age Resolved Age Notes LastModified by Organization Details LastModified Time Mother Diabetes mellitus 81 [email or web address] Not available 10/15 11:03:59 Brother Diabetes mellitus [...] Details Recorded Time zoster live 4 completed ENLIDA Mena [facility] 12/02/2022 09:16:27 Influenza, high-dose, trivalent, PF 4 [facility] 09:16:27 Influenza, high-dose, trivalent, PF 6 [facility] 09:16:27 Tdap 8 [facility]/2022 09:16:27 Influenza, high-dose, trivalent, PF 9 completed NELIDA Velazquez [facility] 12/20/2024 11:03:30 zoster recombinant 9 completed NELIDA Velazquez [facility] 12/20/2024 11:03:30 COVID-19, mRNA, LNP-S, PF, 30 mcg/0.3 mL dose 1 completed NELIDA Mena, [facility] 12/02/2022 09:16:27 COVID-19, mRNA, LNP-S, PF, 30 mcg/0.3 mL dose 1 completed NELIDA Mena, [facility] 12/02/2022 09:16:27 COVID-19, mRNA, LNP-S, PF, 30 mcg/0.3 mL dose 1 completed NELIDA Mena, [facility] 12/02/2022 09:16:27 Influenza, split virus, trivalent, PF 0 completed NELIDA Mena, [facility] 12/02/2022 09:16:27 zoster recombinant 9 completed NELIDA Velazquez, [facility] 12/20/2024 11:03:30 Influenza, adjuvanted, trivalent, PF 8 completed NELIDA Mena, [facility] 12/02/2022 09:16:26 Influenza, adjuvanted, trivalent, PF 7 completed NELIDA Mena, [facility] 12/02/2022 09:16:26 Influenza, high-dose, quadrivalent, PF 1 completed NELIDA Mena, [facility] 12/02/2022 09:16:27 Influenza, split virus, trivalent, preservative 0 completed NELIDA Mena, [facility] 12/02/2022 09:16:27 Influenza, high-dose, trivalent, PF 5 completed NELIDA Mena, [facility] 12/02/2022 09:16:27 COVID-19, mRNA, LNP-S, PF, 30 mcg/0.3 mL dose, mayito-sucrose 2 completed Andria Hammer MA null, [facility] 12/02/2022 09:16:27 Pneumococcal conjugate PCV 13 5 completed No Calvillo MA null, [facility] 12/20/2024 11:03:30 Pneumococcal conjugate PCV 13 5 completed No Calvillo MA null, [facility] 12/20/2024 11:03:30 COVID-19, mRNA, LNP-S, bivalent, PF, 30 mcg/0.3 mL dose 2 completed Andria Hammer MA null, [facility] 12/02/2022 09:16:27 Influenza, adjuvanted, quadrivalent, PF 2 completed Andria Hammer MA null, [facility] 12/02/2022 09:16:27 Influenza, adjuvanted, quadrivalent, PF 3 completed Rahel driscoll, [facility] 06/29/2023 11:25:54 RSV, bivalent, protein subunit RSVpreF, diluent reconstituted, 0.5 mL, PF 3 completed Rahel driscoll, [facility] 06/29/2023 11:25:54 COVID-19, mRNA, LNP-S, PF, amyito-sucrose, 30 mcg/0.3 mL 3 completed Rahel driscoll, [facility] 06/29/2023 11:25:54 zoster live 9 completed No Calvillo MA null, [facility] 12/20/2024 11:03:30 Influenza, high-dose, trivalent, PF 4 completed Carmen Ovalle null, [facility] 04/20/2024 13:24:45 zoster recombinant 9 completed No Calvillo MA null, [facility] 12/20/2024 11:03:30 COVID-19, mRNA, LNP-S, PF, mayito-sucrose, 30 mcg/0.3 mL 4 completed NELIDA Noel, [facility] 08/25/2024 11:15:13 Influenza, split virus, trivalent, preservative 1 completed NELIDA Mena, [facility] 12/02/2022 09:16:27 Influenza, split virus, trivalent, preservative 2 completed NELIDA Mena, [facility] 12/02/2022 09:16:27 Tdap 3 completed NELIDA Mena, [facility] 12/02/2022 09:16:27 pneumococcal polysaccharide PPV23 3 completed NELIDA Mena, [facility] 12/02/2022 09:16:27 Past Encounters Encounter ID Performer Location Encounter Start Date Encounter Closed Date Diagnosis/Indication Diagnosis SNOMED-CT Code Diagnosis ICD10 Code Diagnosis IMO Codes Diagnosis Note [id number] [facility]Comm erce [address] [facility] [place] [address] 02/19/2011 00:00:00 [id number] autoEComm erce [address] [facility] [place] [address] 04/16/2011 00:00:00 [id number] autoEComm erce [address] [facility] [place] [address] 07/16/2011 00:00:00 [id number] autoEComm erce [address] [facility] [place] [address] 10/12/2011 00:00:00 [id number] autoEComm erce [address] [facility] [place] [address] 01/18/2012 00:00:00 [id number] autoEComm erce [address] [facility] [place] [address] 04/21/2012 00:00:00 [id number] auto[facility]Comm erce [address] [place] [address] 07/28/2012 00:00:00 [id number] auto[employer]Comm erce [address] [place] [address] 08/13/2012 00:00:00 [id number] auto[address]Comm erce [address] [place] [address] 11/21/2012 00:00:00 [id number] autoEComm erce [address] [place] [address] 12/26/2012 00:00:00 [id number] auto[employer]Comm erce [address] [place] [address] 02/01/2013 00:00:00 [id number] auto[employer]Comm erce [address] [place] [address] 02/20/2013 00:00:00 [id number] autoEComm erce [address] [place] [address] 02/22/2013 00:00:00 [id number] autoEComm erce [address] [place] [address] 02/24/2013 00:00:00 [id number] autoEComm erce [address] [place] [address] 02/27/2013 00:00:00 [id number] autoEComm erce [address] [place] [address] 03/04/2013 00:00:00 [id number] autoEComm erce [address] [place] [address] 03/06/2013 00:00:00 [id number] autoEComm erce [address] [place] [address] 03/13/2013 00:00:00 [id number] autoEComm erce [address] [place] [address] 03/20/2013 00:00:00 [id number] autoEComm erce [address] [facility],[address] [place], [place] [address] 03/29/2013 00:00:00 [id number] autoEComm erce [address] [facility],[address] [place], [place] [address] 05/03/2013 00:00:00 [id number] autoEComm erce [address] [facility] [place], [place] [address] 08/09/2013 00:00:00 [id number] autoEComm erce [address] [facility] [place], [place] [address] 11/08/2013 00:00:00 [id number] Asim Pelaez MD Main Office [address] [address] [place] [address] 03/21/2014 10:27:48 03/21/2014 11:34:56 Renal disorder due to type 2 diabetes mellitus 165998012 excellent control; last A1C was 5.9. Low back pain 067617338 he will try exercises at home and will discuss this further with Dr Chao. Sounds like OA since no radiation and worse in am and better as day goes on. Rheumatoid arthritis 43614738 followed by Dr Chao; on methotrexa te. Chronic ki dney disease stage 3 060267383 followed by renal. Creatinine stable at 1.7 [id number] Asim Pelaez MD Main Office [address] [address] [place] [address] 06/27/2014 10:32:40 06/27/2014 11:33:48 Renal disorder due to type 2 diabetes mellitus 758087170 excellent control; last A1C was 5.9. Brewer's esophagus 995008104 Rheumatoid arthritis 44109218 followed by Dr Chao; on methotrexa te. Chronic ki dney disease stage 3 565742215 followed by renal. Creatinine stable at 1.7 [id number] Asim Pelaez MD Main Office [address] [address] [place] [address] 10/03/2014 09:18:19 10/03/2014 10:21:00 Renal disorder due to type 2 diabetes mellitus 172641954 excellent control; last A1C was 5.9. Not due for diabetes lab tests until 3 months from now. Adult heal th examination 494657456 Essential hypertension 90852003 generally runs well at other doctor offices. He will monitor and call if the systolic remains above 140. Rheumatoid arthritis 10108561 followed by Dr Chao; on methotrexa te. His last wbc was low so Dr Chao lowered his methotrexa te and will recheck his CBC next week. [id number] Asim Pelaez MD Main Office [address] [place] [address] 01/02/2015 08:49:04 01/02/2015 10:06:51 Renal disorder due to type 2 diabetes mellitus 592313721 good control on reduced dose. His A1C has gone up a little. If it continues to go up we will adjust his meds at his next f/u. Low back pain 152721461 He was advised to try aleve for the pain and he will discuss this further with Dr Chao next week when he sees him for his RA. He may benefit from PT and an injection. He will call for an appointmen t with a back specialist (Dr Mathias) if Dr Chao can't help him. Rheumatoid arthritis 36749031 followed by Dr Chao; on methotrexa te. . Chronic ki dney disease stage 3 566014517 followed by renal. Creatinine stable at 1.7 [id number] Asim Pelaez MD Main Office [address] [place] [address] 03/27/2015 12:36:18 03/27/2015 13:28:43 Renal disorder due to type 2 diabetes mellitus 480108339 good control on reduced dose. His A1C has gone up a little. If it continues to go up we will adjust his meds at his next f/u. Administra tion of pneumococcal vaccine 90142193 Difficulty finding words 745398177 this has been noted by his and patient agrees; sometimes takes a few seconds for a word to come to him. No memory concerns. No expressive or receptive aphasia. A cognitive screening was done which does not show any deficits. Malignant neoplasm of prostate 382934159 was followed by Dr Ace who is leaving his practice; we will follow his PSA here. Brewer's esophagus 315208810 followed by GI; UTD with EGD. [id number] Asim Pelaez MD Main Office [address] [place] [address] 07/03/2015 09:07:38 07/03/2015 09:54:41 Renal disorder due to type 2 diabetes mellitus 827274383 E11.29 good control on reduced dose. His A1C has gone up a little. If it continues to go up we will adjust his meds at his next f/u. Nocturia 386854961 R35.1 Chronic ki dney disease stage 3 493991070 N18.3 followed by renal. Creatinine stable at 1.7 Pure hypercholesterolemia 745405834 E78.0 [id number] Asim Pelaez MD Main Office [address] [place] [address] 10/16/2015 10:46:45 10/16/2015 11:59:49 Essential hypertension 39935777 I10 good control. Type 2 sarah betes mellitus 17430465 E11.9 Adult heal th examination 757175208 Z00.00 History of malignant neoplasm of prostate 920525440 Z85.46 Pain in toe 466213038 M7 9.676 Chronic ki dney disease stage 3 260079022 N18.3 followed by renal. Creatinine stable at 1.7 [id number] Asim Pelaez MD Main Office [address] [place] [address] 01/20/2016 11:20:19 01/20/2016 12:06:45 Type 2 diabetes mellitus 74968776 E11.9 His A1C is creeping up. No changes since there should be an improvemen t since he stopped the prednisone . He will also try to increase his exercise. Renal diso rder due to type 2 diabetes mellitus 935500213 E11.29 Low back pain 842947074 M54.5 He may benefit from PT and an injection. He will make an appointmen t with [facility]; a referral was put in. Rheumatoid arthritis [address] Chao; on methotrexa te. His prednisone was stopped a couple of weeks ago and his methotrexa te was increased. His hands are mostly effected. [id number] Asim Pelaez MD Main Office [address] [facility] [address] [facility] [place] [address] 04/15/2016 10:00:08 04/15/2016 11:29:05 Renal disorder due to type 2 diabetes mellitus 336170000 E11.29 A1C still creeping up and now at 7.2. We will continue with current mgmt. Low back pain 427592646 M54.5 Changes noted at L5 and awaiting a bone scan. I spoke to ONEIL Antonio at [facility] and she is scheduling the bone scan. [id number] Asim Pelaez MD Main Office [address] [facility] [address] [facility] [place] [address] 07/08/2016 10:43:41 07/08/2016 11:56:21 Renal disorder due to type 2 diabetes mellitus 857769640 E11.29 His A1C decreased from 7.2 to 6.4. It is unclear why this improved since his diet, weight and activity level has stayed the same. We will continue with current mgmt. Chronic ki dney disease stage 3 351910132 N18.3 followed by renal. Creatinine stable at 1.9. Has been around the same level for at least 3 years. Rheumatoid arthritis [address] Chao; on methotrexa te. His hands are mostly effected. Hyperlipidemia 53582596 E78.5 Good control; LDL at goal; continue current mgmt. Low back pain 734547838 M54.5 Much improved since getting an injection 3 weeks ago. [id number] Albert Bryant MD Main Office [address] [place] [address] 09/26/2016 09:54:33 09/26/2016 11:47:04 Acute otitis externa 44416693 H60.502 GIven history and comorbidit ies there is significan t potential for resistant organisms, therefore culture was done. Empiric treatment with cipro for pseudomona l coverage. If persistent /worse or new symptoms develop might need additional therapy. Pt advised to call with any problems. Impacted c erumen in right ear [id number] 640751 H61.21 Pt will follow up with ENT for disimpacti on. 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 9 ? early pna - will empiricall y rx [id number] Asim Pelaez MD Main Office [address] [facility] [address] [place] [address] 10/12/2016 10:04:32 10/12/2016 11:50:07 Adult health examination 836783015 Z00.00 Dyspnea 886142440 R06.00 Unclear etiology for this. He may have had wheezing from a respirator y infection. Doubt COPD as diagnosed as an inpatient. He has no h/o cough or TERRAZAS and his spirometry was normal although with a low normal Fev1/FVC (between 7- and 79%). Will refer him to pulmonary for further evaluation Nocturia 712352737 R35.1 Renal diso rder due to type 2 diabetes mellitus 826894468 E11.29 His A1C increased to 7.5. He feels that much of this increase was because of prednisone . We will continue with current mgmt. Chronic ki dney disease stage 3 005960709 N18.3 followed by renal. Creatinine stable and the last level done while he was hospitaliz ed and after having had received fluids was 1.3. It had been around 1.9 for at least 3 years. Rheumatoid arthritis [address] Chao; on methotrexa te. His hands are mostly effected. Hypertensi ve renal disease 51472272 I12.9 Good control; will continue current mgmt. [id number] Asim Pelaez MD Main Office [address] [facility] [address] [place] [address] 01/25/2017 11:01:13 01/25/2017 11:38:22 Renal disorder due to type 2 diabetes mellitus 348222332 E11.29 His A1C has come down from 7.5 to 6.6 since stopping the prednisone . No changes need to be made at this time. Dyspnea on exertion 6084 5006 R06.09 He feels that this may be secondary to deconditio rossy but we will get a stress test given his symptoms and h/o diabetes. [id number] Bebeto mcclelland MD Main Office [address] [facility] [address] [place] [address] 02/26/2017 13:28:50 02/26/2017 14:14:08 Sinusitis 11261426 J32.9 Rhinitis 75722655 J00 Cough 40743454 R05 [id number] Albert Bryant MD Main Office [address] [facility] [address] [place] [address] 04/15/2017 14:12:27 04/15/2017 15:20:28 Chronic recurrent sinusitis 211854049 J32.9 ? if allergy related. Will resume daily antihistam ine for now. Respiratory crackles 484 50435 R09.89 Will re-refer to pulm. Needs eval to rule out MTX toxicity as a cause. Pneumonia 863495664 J18. 9 Will check CXR and add axithro if infiltrate present. Otherwise will cover for for both sinusitis/ PNA. Cough 08093981 R05 [id number] Asim Pelaez MD Main Office [address] [place] [address] 05/10/2017 11:11:18 05/10/2017 12:04:55 Renal disorder due to type 2 diabetes mellitus 277127734 E11.22 good control on reduced dose. His A1C has remained steady at 6.6. No change in mgmt. Dyspnea 352005957 R06.00 Unclear etiology for this. Doubt COPD as diagnosed as an inpatient. He has no h/o cough or TERRAZAS and his spirometry was normal although with a low normal Fev1/FVC (between 7- and 79%). he has an appointmen t with pulmonary in a couple of days. We will also make an appointmen t with cardiology for further evaluation . Low back pain 038852617 M54.5 Much improved since getting an injection. He will call [facility] for a f/u appointmen t. Chronic ki dney disease stage 3 360141679 N18.3 followed by renal. Creatinine stable at 1.7 Major depr essive disorder 401706432 F32.0 We discussed treatment and he wants to hold off on meds; he will call if he changes his mind. [id number] Asim Pelaez MD Main Office [address] [facility] [address] [place] [address] 06/10/2017 13:14:51 06/10/2017 14:18:02 Thyroid nodule 425628239 E04.1 incidental finding on recent chest CT Stable angina 245570484 I20.8 He will be starting cardiac rehab at [facility] Coronary arteriosclerosis 46793664 I25.10 had stent placement by Dr Killian [id number] Asim Pelaez MD Main Office [address] [facility] [address] [place] [address] 09/01/2017 08:40:45 09/01/2017 09:38:28 Renal disorder due to type 2 diabetes mellitus 146517522 E11.22 good control on reduced dose. His A1C has remained steady at 6.6. No change in mgmt. Rheumatoid arthritis [address] Chao; on methotrexa te. His hands are mostly effected. Stable angina 356056310 I20.8 He will be starting cardiac rehab at [facility] Insomnia 034012386 G47.0 0 Low back pain 495425295 M54.5 Much improved since getting an injection. He will call [facility] for a f/u appointmen t. Eczema 90065357 L30.9 Chronic ki dney disease stage 3 174263797 N18.3 [id number] Asim Pelaez MD Main Office [address] [facility] [address] [place] [address] 12/08/2017 10:46:04 12/08/2017 12:08:52 Adult health examination 316339512 Z00.00 UTD with colonscopy and due again in 2020. Renal diso rder due to type 2 diabetes mellitus 973563307 E11.22 good control on reduced dose. His A1C has remained steady at 6.6. No change in mgmt. Chronic ki dney disease stage 3 813424344 N18.3 [id number] Asim Pelaez MD Main Office [address] [facility] [address] [place] [address] 03/07/2018 10:31:35 03/07/2018 11:38:11 Renal disorder due to type 2 diabetes mellitus 124659925 E11.22 His A1C has come down a little to 7.3. He feels that it is not lower because he has been receiving steroid joint injections . No changes at this time. Insomnia 589668118 G47.0 0 Trouble staying asleep. Will try tylenol pm or melatonin. Chronic ki dney disease stage 3 540501885 N18.3 Followed by renal Rheumatoid arthritis [address] Chao; on methotrexa te. His hands are mostly effected. [id number] Asim Pelaez MD Main Office 36[address] [facility] [address] [place] [address] 05/04/2018 14:10:49 05/04/2018 14:41:30 Pre-surgery evaluation 221502288 Z01.818 Renal diso rder due to type 2 diabetes mellitus 474036539 E11.22 His A1C has come down a little to 7.3. He feels that it is not lower because he has been receiving steroid joint injections . No changes at this time. Chronic ki dney disease stage 3 058353677 N18.3 Followed by renal Spinal andrez nosis of lumbar region 20889866 M48.061 scheduled for surgery with Dr Coreas Insomnia 539647953 G47.0 0 Trouble staying asleep. Will try tylenol pm or melatonin. Rheumatoid arthritis [address] Chao; on methotrexa te. His hands are mostly effected. [id number] Asim Pelaez MD Main Office [address] [facility] [address] [place] [address] 06/27/2018 08:54:16 06/27/2018 09:30:35 Renal disorder due to type 2 diabetes mellitus 080998502 E11.22 His A1C has come down a little to 7.1. No changes at this time. Major depr essive disorder 464362392 F32.0 We discussed treatment and he wants to hold off on meds; he will call if he changes his mind. Spinal andrez nosis of lumbar region 19300992 M48.[address] Coreas a couple of months ago and has improved Hypertensi ve renal disease 68687971 I12.9 Good control; will continue current mgmt. Chronic ki dney disease stage 3 634542091 N18.3 [id number] Asim Pelaez MD Main Office [address] [address] [place] [address] 08/01/2018 13:15:16 08/01/2018 14:10:58 Edema 160352610 R60.9 Probable venous insufficie ncy although unusual that it came on so quickly. Doubt DVT since no calf tenderness . [id number] Asim Pelaez MD Main Office [address] [address] [place] [address] 08/08/2018 10:02:22 08/08/2018 11:57:11 Venous insufficiency of lower limb 091607464 I87.2 Doubt liver, kidney or cardiac etiologies for his edema. Improved with elevation and lasix. Has compressio n stockings at home which he will start using. [id number] Asim Pelaez MD Main Office [address] [address] [place] [address] 10/05/2018 12:35:05 10/05/2018 13:47:08 Neuropathy due to diabetes mellitus 724785143 E11.40 Rheumatoid arthritis [address] Chao; on methotrexa te. His hands are mostly effected. 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 Followed yearly in [place]. [id number] Asim Pelaez MD Main Office [address] [place] [address] 01/20/2019 10:48:39 01/20/2019 12:13:06 Adult health examination 396024269 Z00.00 UTD with colonoscop y and due again in 2020. Major depr essive disorder 294068685 F32.0 We discussed treatment and he wants to hold off on meds; he will call if he changes his mind. He will make an appointmen t for counseling . Chronic ki dney disease stage 3 187006033 N18.3 Followed by renal. [id number] Asim Pelaez MD Main Office [address] [address] [place] [address] 04/24/2019 13:17:57 04/24/2019 14:14:08 Renal disorder due to type 2 diabetes mellitus 112081300 E11.22 His A1C has gone back up from 6.6 to 7.2. I will concentrat e on lifestyle changes. No changes in mgmt. Malignant melanoma of eye 795914924 C69.90 Switching his care from [place] to [facility]. Chronic ki dney disease stage 3 024135015 N18.3 Followed by renal. Rheumatoid arthritis [address] Chao; on methotrexa te. His hands are mostly effected. [id number] Asim Pelaez MD Main Office [address] [place] [address] 07/12/2019 08:49:50 07/12/2019 10:01:16 Renal disorder due to type 2 diabetes mellitus 508348288 E11.22 His A1C has remained at 7.2. He will concentrat e on lifestyle changes. No changes in mgmt. Chronic ki dney disease stage 3 797763504 N18.3 Followed by renal. Coronary arteriosclerosis 17117712 I25.10 had stent placement by Dr Killian Hypertensi ve renal disease 30314433 I12.9 Good control; will continue current mgmt. [id number] Asim Pelaez MD Main Office [address] [address] 01/23/2020 09:17:48 01/23/2020 10:42:12 Adult health examination 248998719 Z00.00 UTD with colonoscop y and due again in 2020. Renal diso rder due to type 2 diabetes mellitus 328155026 E11.22 His A1C has come down to 7.0. He will concentrat e on lifestyle changes. No changes in mgmt. Fatigue 41919721 R53.83 No evidence for anemia Hypertensi ve renal disease 43806869 I12.9 Sometimes running low. He will decrease his amlodipine from 10 to 5 mg and follow his BP at home. Will call if his systolic goes above 130 consistent ly. Brewer's esophagus 3029 00538 K22.70 followed by GI; due for an EGD. Will look into getting it done at the same time as his colonoscop y. He needs a new GI doc since he used to go to [facility]. Rheumatoid arthritis [address] Chao; on methotrexa te. His hands are mostly effected. Chronic ki dney disease stage 3 966401076 N18.3 Followed by renal. Stable angina 819701455 I20.8 followed by cardiology Major depr essive disorder 775798236 F32.0 This is currently in remission. [id number] Asim Pelaez MD Main Office [address] [facility] [address] [place] [address] 04/24/2020 09:51:33 04/24/2020 10:36:32 Renal disorder due to type 2 diabetes mellitus 037318398 E11.22 His A1C increased to 7.4. He will concentrat e on lifestyle changes. No changes in mgmt. Hypertensi ve renal disease 54581055 I12.9 Decreased his amlodipine from 10 to 5 mg and BP running well. Edema in ankles has improved. Chronic ki dney disease stage 3 599238651 N18.3 Followed by renal. Coronary arteriosclerosis 09276773 I25.10 had stent placement by Dr Killian Insomnia 153415369 G47.0 0 Trouble staying asleep. Will try ambien. Malignant melanoma of eye 871459515 C69.90 Followed at [facility]. [id number] Asim Pelaez MD Main Office 36[address] [facility] [address] [place] [address] 08/13/2020 09:58:20 08/13/2020 10:44:34 Renal disorder due to type 2 diabetes mellitus 886769439 E11.22 His A1C has improved to 6.8. He will continue to concentrat e on lifestyle changes. No changes in mgmt. He understand s that his sugars may increase because of prednisone he is taking for his finger pain from RA. Rheumatoid arthritis [address] Chao; on methotrexa te. His hands are mostly effected. Started prednisone 2.5 mg and will go back to bid since that is the dose which helps. He will monitor his sugars to be sure that they do not go too high. Stable angina 272326079 I20.8 followed by cardiology but hasn't had an appointmen t in almost a year. Malignant melanoma of eye 682771029 C69.90 Followed at [facility]. Chronic ki dney disease stage 3 639842770 N18.31 followed by renal. Creatinine stable at 1.7 Hypertensi ve renal disease 68383784 I12.9 Decreased his amlodipine from 10 to 5 mg and BP running well. Edema in ankles has improved. Essential hypertension 43987426 I10 good control. Hyperlipidemia 73731574 E78.5 Good control; LDL at goal; continue current mgmt. [id number] Geneva Jean MD Main Office [address] [facility] [address] [facility] [place] [address] 10/08/2020 10:21:31 10/08/2020 11:35:46 Transition of care 9331119455 105 Z75.8 Chart, medication reviewed, medication reconciled , general precaution s discussed, compliance advised. Completed nuclear medicine stress test requested. 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 Patient's previous EKG shows a QTC prolongati on of roughly around 480 and his risk is also increased as he is on hydroxychl oroquine.G stephenie that he is clinically depressed the benefits [...] suicidal or homicidal ideation, resources was provided.Lamar aparicio was also offered counseling service but refused noting that he had it in the past with no relief. Type 2 sarah betes mellitus 26519099 E11.9 As geriatric patients are more sensitive to antidiabet ic medication s such as sulfonylur ea it was decided between me and [facility] that we would switch his glipizide to Metformin 500 extended release daily as his A1c has been good at 6.8. Will also provide B12 vitamin to prevent any B12 deficiency associated with Metformin use. Prior to starting Metformin I calculate the patient's eGFR which is greater than 45, his eGFR to this date is 50 thus ok to start, but should be monitored. [id number] Asim Pelaez MD Main Office 36[address] [facility] [address] [place] [address] 10/22/2020 13:37:45 10/22/2020 14:32:25 Atypical chest pain 776789636 R07.89 He will make a f/u with cardiology . Costal chondritis 606580 04 M94.0 Advised heat, decreased use of right arm and tylenol prn. [id number] Asim Pelaez MD Main Office [address] [address] 11/12/2020 09:56:46 11/12/2020 10:43:32 Type 2 diabetes mellitus 53409152 E11.37X9 His A1C increased a little possibly from increased carbs. He will cut back on these. Increase his activity level. No changes in meds. Chronic ki dney disease stage 3 547719020 N18.31 followed by renal. Creatinine stable at 1.7 Hypertensi ve renal disease 93021121 I12.9 Decreased his amlodipine from 10 to 5 mg and BP running well. Edema in ankles has improved. Major depr essive disorder 324192247 F32.0 This is currently in remission. Insomnia 857565658 G47.0 0 Wants to decrease his ambien from 10 to 5 mg to avoid SE's. He has trouble falling asleep. [id number] Geneva Jean MD Main Office 36[address] [facility] [address] [place] [address] 01/08/2021 10:21:18 01/08/2021 11:21:34 Neuropathy due to diabetes mellitus 647224023 E11.40 continue gabapentin . see steel rule inspector at least once per year for foot care. Renal diso rder due to type 2 diabetes mellitus 513244379 E11.21 Uncontroll ed type I DM with [...] . Chronic ki dney disease stage 3 436080954 N18.30 f/u with renal as scheduled. [id number] Asim Pelaez MD Main Office [address] [place] [address] 02/13/2021 09:19:22 02/13/2021 10:32:34 Adult health examination 934678611 Z00.00 Due for a colonoscop y and possibly an EGD. Last seen by Dr Walls in 2015. He is UTD with immunizati ons including COVID. Inflammati on of sacroiliac joint 23274479 M46.1 He will try exercises at home and will make a PT appointmen t if it persists. Screening for malignant neoplasm of colon 457394756 Z12.11 Brewer's esophagus 3029 54659 K22.70 followed by GI; due for an EGD. Will look into getting it done at the same time as his colonoscop y. He needs a new GI doc since he used to go to [facility]. Chronic ki dney disease stage 3 612860008 N18.31 followed by renal. Creatinine stable at 1.7 Renal diso rder due to type 2 diabetes mellitus 619486280 E11.22 His A1C is at 7.5 and he is followed by [facility]. Unintentio nal weight loss 364699969 R63.4 Major depr essive disorder 148854877 F32.0 This is currently in remission. [id number] [facility] Tong PA-C Main Office [address] [address] [place] [address] 03/25/2021 10:48:38 03/25/2021 11:36:44 Renal disorder due to type 2 diabetes mellitus 189871760 E11.21 Diabetes in near target control with jardiance at 10 mg. PT.will continue working on diet and exercising . Repeat BMP in 3 m . Chronic ki dney disease stage 3 459315621 N18.30 f/u with renal as scheduled. [id number] Asim Pelaez MD Main Office [address] [address] [place] [address] 08/18/2021 09:13:32 08/18/2021 10:04:46 Hypertensive renal disease 05047386 I12.9 Stable on current mgmt. No changes. Chronic ki dney disease stage 3 821484617 N18.30 followed by renal. Creatinine stable at 1.7 Renal diso rder due to type 2 diabetes mellitus 182520988 E11.21 His A1C is at 7.2. No changes in meds but we discussed cotinuing diet improvemen ts and exercise to improve his sugars. Stable angina 463807716 I20.8 followed by cardiology and seen there last month. Insomnia 407245966 G47.0 0 Able to fall asleep with ambien 5 mg but wakes after 4 hours. He will add melatonin and if not helpful we will look into long-actin g ambien. [id number] Asim Pelaez MD Main Office [address] [address] [place] [address] 10/23/2021 10:43:06 10/23/2021 12:11:00 Neuropathy due to diabetes mellitus 833258804 E11.40 Insomnia 912059525 G47.0 0 He will hold his trazodone for now since most of his symptoms began after he started it. No new meds will be added at this time. Expressive language disorder 726940432 F80.1 Will start w/u and see him back in a few weeks. May need a referral to memory d/o clinic. [id number] Asim Pelaez MD Main Office [address] [address] [place] [address] 11/11/2021 11:19:25 11/11/2021 12:24:37 Insomnia 762066232 G47.00 His expressive aphasia improved after stopping the trazodone. We will try a low dose of lunesta and monitor his mental status. Major depr essive disorder 008200303 F32.0 This is currently in remission. Dysuria 99037003 R30.9 His urine culture is negative. Memory impairment 493837 006 R41.3 [id number] Geneva Jean MD Main Office 36[address] [facility] [address] [facility] [place] [address] 12/31/2021 14:22:21 12/31/2021 15:30:48 Left inguinal hernia 704304648 K40.90 Pt with left sided hernia, able to reduce but quite large, will do surgical referral [facility]. If he has any increased pain, n/v, fever or unable to get relief with laying down needs to go to the ED . Pt agrees with plan [id number] Asim Pelaez MD Main Office 36[address] [facility] [address] [place] [address] 02/19/2022 10:22:36 02/19/2022 11:36:57 Adult health examination 271699161 Z00.00 He had a colonoscop y done by Dr Terrell 07/15 and is due again in June 2024. He is UTD with immunizati ons including COVID. Memory impairment 580073 006 R41.[address] had a head CT done November 2021 and an abnormal 6CIT done in the office today. Hyperlipidemia 47716413 E78.5 Good control; LDL at goal; continue current mgmt. History of malignant neoplasm of eye 6614010126 18962 Z85.840 Followed at [facility]. [id number] Asim Pelaez MD Main Office 36[address] [facility] [address] [place] [address] 06/11/2022 10:25:28 06/11/2022 11:18:31 Renal disorder due to type 2 diabetes mellitus 832076590 E11.21 His A1C is at goal at 6.9. No changes in meds but we discussed continuing diet improvemen ts and exercise to improve his sugars. Hypertensi ve renal disease 85092630 I12.9 Stable on current mgmt. No changes. Rheumatoid arthritis [address] Chao; on methotrexa te. His hands are mostly effected. Started prednisone 2.5 mg and will go back to bid since that is the dose which helps. He will monitor his sugars to be sure that they do not go too high. Chronic ki dney disease stage 3B 890293580 N18.32 followed by renal. Creatinine stable at 1.7 [id number] Asim Pelaez MD Main Office [address] [facility] [address] [place] [address] 07/11/2022 09:04:26 07/11/2022 10:36:04 COVID-19 437015726 U07.1 He was instructed to hold his atorvastat in and prednisone while taking the paxlovid. He understand s the SE's and the need for isolation. [id number] [facility] [facility] [address] [place] [address] 07/29/2022 14:02:14 07/29/2022 15:56:36 Pneumonitis 927055875 J18.9 ? whether testing positive from initial infection vs rebound sx.Will tx for possible secondary bacterial infection. Hydration, rest, tea with honey, tylenol or ibuprofen as needed, continue robitussin as needed and tessalon as needed. Levofloxac in once daily x 7 days, if any pain in achilles or other tendons stop med and call us. Chronic reina dney disease stage 3B 345591147 N18.32 Renal diso rder due to type 2 diabetes mellitus 971141757 E11.21 Rheumatoid arthritis 698 47591 M06.9 Hypertensi ve renal disease 17968049 I12.9 [id number] Asim Pelaez MD Main Office [address] [facility] [address] [place] [address] 09/02/2022 09:08:36 09/02/2022 09:57:31 Neuropathy due to diabetes mellitus 237701812 E11.40 His neuropathy has remained stable. A1C increased a little to 7.2. No changes to mgmt and he will continue working on lifestyle changes. Chronic reina dney disease stage 3B 525629701 N18.32 followed by renal. Creatinine stable around 1.7 Hyperlipidemia 48133615 E78.5 Good control; last LDL at goal; recheck fasting lipid level and continue current mgmt. History of SARS-CoV-2 29 25728006 88681803 Z86.16 Took paxlovid and improved back to baseline. Insomnia 880997936 G47.0 9 His formulary has changed and we have referred him to sleep medicine to help with meds. His appointmen t is set for 10/16/22. Hypertensi ve renal disease 79932690 I12.9 Continue current mgmt. [id number] Jacquelin antoine, ARBORIST REPRESENTATIVE Main Office 36[address] [facility] [address] [place] [address] 11/09/2022 15:34:58 11/09/2022 16:41:37 Pain of left shoulder joint 3897777766 3726796 M25.512 pt sees rheum next month, will do N Injection there. H would like to have xray there as well. Rheumatoid arthritis 698 29638 M06.9 Follows with rheum regularly, stable on meds. [id number] Asim Pelaez MD Main Office [address] [facility] [address] [place] [address] 12/02/2022 09:10:32 12/02/2022 10:01:47 Renal disorder due to type 2 diabetes mellitus 675786354 E11.21 His A1C silvia to 8.0 most likely secondary to 4-5 steroid injections he received over the last 2 months for his back/hip pains. He hasn't changed his diet and is c/w his meds. No changes in mgmt at this point and will recheck in 3 months. Major depr essive disorder 057415746 F32.0 This is currently in remission. On a low dose of an SSRI. Hyperlipidemia 02063866 E78.5 Good control; last LDL at goal; not due for fasting labs until next year. Chronic ki dney disease stage 3B 872792186 N18.32 followed by renal. Creatinine stable at 1.2 to 1.6. Insomnia 171050574 G47.0 9 Doing well on doxepin. Memory impairment 876655 006 R41.[address] He had a head CT done November 2021 and was seen by [facility] geriatric medicine. We will look into what the next step should be. [id number] Asim Pelaez MD Main Office [address] [place] [address] 06/29/2023 10:17:26 06/29/2023 11:38:10 Adult health examination 114208096 Z00.00 He had a colonoscop y done by Dr Terrell 07/15 and is due again in June 2024. He is UTD with immunizati ons including COVID, tetanus, flu, pneumonia, RSV and shingles. Chronic ki dney disease stage 3B 043908856 N18.32 followed by renal. Creatinine stable at 1.2 to 1.6. Coronary arteriosclerosis 41967923 I25.10 had stent placement by Dr Killian Hyperlipidemia 95694752 E78.5 Good control; last LDL at goal; not due for fasting labs until next year. Hypertensi ve renal disease 83903790 I12.9 Continue current mgmt. Renal diso rder due to type 2 diabetes mellitus 886507417 E11.21 His A1C has improved from 8.0 to 7.0. It may have been elevated because of prednisone use a few months ago. At [facility] risk for falls 668052401 Z91.81 Gave him info on the Fall Prevention Initiative and he will schedule an appointmen t. 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 Minimal co gnitive impairment 024913476 R41.89 He has been followed by geriatric medicine (Dr Suazo, ENEDELIA Reeves), and had neuropsych testing c/w AD. I texted with ENEDELIA Reeves and she will schedule him for a cholineste rase inhibition trial and care navigation . Alzheimer's disease 2692 9004 G30.9 Followed by neuropsych and geritric medicine [id number] Asim Pelaez MD Main Office [address] [facility] [address] [place] [address] 10/14/2023 09:37:19 10/14/2023 10:32:36 Renal disorder due to type 2 diabetes mellitus 159160631 E11.21 His A1C has improved from 8.0 to 7.0 and is now at 7.2. Chronic ki dney disease stage 3B 563352139 N18.32 followed by renal. Creatinine stable at 1.2 to 1.6. Hypertensi ve renal disease 23158699 I12.9 Continue current mgmt. Anemia 060397230 D64.9 Check CBC. Allergic rhinitis 807096 04 J30.9 Right side sciatica 3202 418934 88620 M54.31 He will try home exercises and if they are not helpful he will make an appointmen t with PT. Hyperlipidemia 59696494 E78.5 Good control; last LDL at goal; check fasting lipid level. Mild neuro cognitive disorder 581097369 G31.84 Followed by the memory d/o clinic and currently taking aricept 5 mg which he is tolerating well. He is followed every 6 months. [id number] Asim Pelaez MD Main Office 36[address] [facility] [address] [facility] [place] [address] 11/23/2023 09:01:28 11/23/2023 16:52:56 [id number] Asim Pelaez MD Main Office [address] [facility] [address] [facility] [place] [address] 12/02/2023 09:38:20 12/02/2023 10:28:53 Right bundle branch block 99498255 I45.0 cardiology was consulted in hospital, COVID-19 480161467 U07.1 S/P admitted with weakness, covid positive, treated with IV remdesevir . feeling better, no cough/ SOB. required O2 in hospital but weaned off prior to D/C Prolonged QT interval 11 7984356 I45.81 RBBB, prolonged QT, avoid QT prolonging med, continue hydroxychl oroquine, thought to be infectious . Hypokalemia 62613173 E87 .6 Chronic ki dney disease stage 3B 752965877 N18.32 Renal diso rder due to type 2 diabetes mellitus 870069489 E11.21 Last A1C 7.1 in September, on jardiance. Chronic ki dney disease due to hypertension 7256234256 09102 I12.9 has nephrology appt next week. [id number] Asim Pelaez MD Main Office [address] [facility] [address] [place] [address] 01/13/2024 14:11:50 01/13/2024 15:04:08 Hypertensive renal disease 58437507 I12.9 repeat BP normal. Renal diso rder due to type 2 diabetes mellitus [id number] E11.21 on jardiance, A1C 6.2 today, recheck in 3 months with PCP. Continue diet and medication s. Rheumatoid arthritis [address] Chao, is out of prednisone and having back pain, will refill. [id number] Asim Pelaez MD Main Office [address] [facility] [address] [place] [address] 02/09/2024 09:24:32 02/09/2024 10:10:41 Lumbosacral spondylosis without myelopathy 14130242 M47.817 He has an appointmen t with Dr Coreas in March. I gave him the number and he will call to be placed on a cancellati on list. Hypertensive disorder 38 199059 I10 He is taking max dose of valsartan and also carvedilol but BP still running high. We cannot increase the beta alexey because of a low heart rate. Will also avoid a diuretic because of previous low potassium. He will restart amlodipine at 5 mg. Minimal co gnitive impairment 245633434 R41.89 He is followed by geriatric medicine (Dr Suazo, ARBORIST REPRESENTATIVE Tommie Reeves), and had neuropsych testing c/w AD. [id number] Asim Pelaez MD Main Office [address] [facility] [address] [place] [address] 04/13/2024 08:53:47 04/13/2024 09:47:40 Renal disorder due to type 2 diabetes mellitus [id number] E11.21 His A1C has gone up from 6.2 to 6.9. No changes in mgmt. Chronic ki dney disease stage 3B 869651794 N18.32 followed by renal. Creatinine stable at 1.2 to 1.6. Hypertensi ve renal disease 84827458 I12.9 Continue current mgmt. Mild neuro cognitive disorder 835574330 G31.84 [facility]. He was on aricept but this was stopped because of a prolonged QT and since he felt that it wasn't helping. He is followed every 6 months. Spinal andrez nosis of lumbar region 53055565 M48.[address] Coreas 2018; a fusion at L5-S1 and did well for years. His back pain returned sometime over the last year and he has an appointmen t with Dr Coreas next week to discuss options. Insomnia 877098995 G47.0 9 Doing well on doxepin and melatonin. [id number] Asim Pelaez MD Main Office [address] [facility] [address] [place] [address] 05/26/2024 09:50:05 05/31/2024 22:16:58 [id number] Asim Pelaez MD Main Office [address] [facility] [address] [facility] [place] [place] [address] 06/01/2024 10:36:42 06/01/2024 11:23:15 Sepsis 81089015 A41.9 due to indwelling catheter-s matthew discharge, cathether was removed and pt is feeling much better-men bladimir status back to baseline Multiple n odules of lung 065451022 R91.8 -imaging in the ED revealed mutiple [...] 1.2 cm-will order PET Lesion of liver 72683714 [address] of abdomen revealed indetermin ate liver lesions-f/ u MRCP recommende d Transition of care 05256 77354 105 Z75.8 reviewed hospital documentat ion Urinary tr act infectious disease 63414634 N39.0 -was evaluated at [facility] for UTI related to dwelling catheter leading to sepsis-landen ated with augmentin course-saw urology earlier this week, catheter was removed>jackman s f/u later today to determine if catheter needs to be placed back in-pt reports to be feeling well Renal diso rder due to type 2 diabetes mellitus 847189283 E11.21 -will check kidney function-j ardiance was stopped by in ED due to [place]-pt has visiting nurse [id number] Asim Pelaez MD Main Office [address] [facility] [address] [place] [address] 08/25/2024 10:57:16 08/25/2024 12:05:28 Adult health examination 698647432 Z00.00 He had a colonoscop y done by Dr Terrell 07/15 and is due again in June 2024. He is UTD with immunizati ons including COVID, tetanus, flu, pneumonia, RSV and shingles. Chronic ki dney disease stage 3B 866245447 N18.32 followed by renal. Creatinine stable at 1.2 to 1.6. Hypertensi ve renal disease 43449263 I12.9 Continue current mgmt. Hyperlipidemia 23199942 E78.5 Good control; last LDL at goal; check fasting lipid level. Renal diso rder due to type 2 diabetes mellitus 797181251 E11.21 His A1C has gone up from 6.2 to 6.9. No changes in mgmt. Rheumatoid arthritis [address] Chao; on methotrexa te. His hands are mostly effected. Started prednisone 2.5 mg and will go back to bid since that is the dose which helps. He will monitor his sugars to be sure that they do not go too high. Minimal co gnitive impairment 213521136 R41.89 He was followed by geriatric medicine (Dr Suazo, ENEDELIA Reeves), and had neuropsych testing c/w AD. He was supposed to have a f/u but this didn't happen. I sent a [place] msg to ENEDELIA Reeves and will f/u with this. Malignant melanoma of eye 172651292 C69.90 Followed at [facility]. Coronary arteriosclerosis 12971071 I25.10 Had a stent placed in the past. Has not been seen by cardiology since January 2024 (about 7 months ago). [id number] Asim Pelaez MD Main Office [address] [facility], [place] [address] 12/20/2024 10:59:31 12/20/2024 11:55:27 Renal disorder due to type 2 diabetes mellitus 026100617 E11.21 His A1C remains less than 7. He was on meds in the past (jardiance ) but this was stopped 5 months ago because his A1C was good after weight loss. No longer needs meds. We will follow. Low back pain 840933733 M54.50 This has been chronic and he is willing to try PT.. Major depr essive disorder 320967001 F32.0 He will increase his sertraline from 50 to 100 mg daily. [id number] Asim Pelaez MD Main Office [address] [facility] [address] [facility] [place] [address] 04/10/2025 11:23:18 04/10/2025 11:59:34 Renal disorder due to type 2 diabetes mellitus 356773044 E11.21 His A1C remains less than 7. He was on meds in the past (jardiance ) but this was stopped in 2023 because his A1C was good after weight loss. No longer needs meds. We will follow. Influenza vaccination declined 129821928 Z28.21 [id number] Hypertensive disorder 38 750927 I10 Good control; continue current mgmt. Mild neuro cognitive disorder 783579040 G31.84 [facility]. He was on aricept but this was stopped because of a prolonged QT and since he felt that it wasn't helping. He is followed every 6 months. He would like to try a different med (memantine ) to see if that helps. Lesion of breast 7790646 04 N64.9 1511319 Non tender palpable lesion at left breast. Lesion of skin of face 0183942212 06 L98.9 0336980 Advised that he call his dermatolog ist to be evaluated since he has a h/o skin cancer. Nonischemi c congestive cardiomyopathy [id number] 04 I42.0 [address] his [address]ologi st [...] Baker Member ID Guarantor Name 04/25/2025 1 [facility]: MEDICARE PPO BLUE (MEDICARE REPLACEMENT PPO) [id number] Cholo Carr [id number] Cholo Carr 12/20/2024 1 [facility]: MEDICARE PPO BLUE (MEDICARE REPLACEMENT PPO) Cholo Carr [id number] Cholo Carr 12/20/2024 1 [employer] (PPO) [id number] Cholo Enriquez Lilly [id number] Cholo Enriquez Lilly Notes Date Note Type Note Provider Name and Address Organization Details Recorded Time 4 text/html Hospitalization Contact RecordReported by PatientHospitalization Contact RecordFor follow up, patient [facility]shospital[facility],admit date: (please enter in format 'mm/dd/yyyy') (05/21/2024),date [...] Wednesday05/29/2024. [facility], lethargy, fever, reported diarrhea and [...] well) MEDS RECONCILED ONEIL SOLORZANO [address], [place], [address], [facility] 05/31/2024 22:16:57 4 text/html ROS as noted in the HPI Hospitalization Contact RecordFor follow up, patient reports [facility], admit date: (05/21/2024), date of discharge: (05/25/2024), [...] Wednesday05/29/2024. [facility] with AMS, lethargy, fever, reported diarrhea and [...] (son aware as well)MEDS RECONCILED ONEIL SOLORZANO [address], [place], [address], [facility] 06/30/2024 14:57:47 5 text/html Generic HPI [...] limited or no assistance. Asim Pelaez MD [address] [address], [place], [address], [facility] 08/27/2024 14:26:43 5 text/html Diabetes F/UReported by [...] problem. He is followed by neuropsych at [facility] every 6 months. He was on aricept for a number of months but stopped it because of SE's (prolonged QT) and lack of benefit. 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 He has been having a tenderness and mostly an itch at his left nipple that has been going on for months. He denies any injury. Has a rash and scaly patch at the right cheek that is not improving. Asim Pelaez MD [address] [facility] [address], [place], [address], [facility] 04/10/2025 12:33:44
== END 2025-07-09 12:55 | disposition home or self-care (01) ==
LOC: HO.HMGAL 12:54
PROVIDERS: PCP Internal Medicine; Visit Provider Registered Nurse Emergency
DX: J30.89 Other allergic rhinitis (principal)
CPT/HCPCS: 95117; 95165